=== PATIENT | male | born 1945 | race Caucasian/White ===

== ENCOUNTER 2024-04-23 02:12 | Observation (INO) | payer MEDICARE, OTHER, SELFPAY ==
[2024-04-22 23:00] VITALS: BP 150/68
[2024-04-23] VITALS: BP 146/68
[2024-04-23 00:01] LABS: Urine Albumin Negative (Neg - Trace); Urine Bilirubin Negative (Negative); Urine Character Clear (Clear); Urine Color Yellow; Urine Glucose Negative (Negative); Urine Ketone Negative (Negative); Urine Leukocyte Negative (Negative); Urine Nitrite Negative (Negative); Urine Occult Blood Negative (Negative); Urine Specific Gravity 1.005 (<1.030); Urine Urobilinogen Negative (Neg - 1+)
[2024-04-23 00:05] LABS: % Basophils 0.2 % (0-2); % Immature Granulocytes 0.3 % (0-0.5); % Lymphocytes 8.7 % (20.5-51.1); % Monocytes 14.5 % (1.7-9.3); % Neutrophils 76.3 % (42.2-75.2); Absolute Lymphocytes 0.5 10^3/uL (1.2-3.4); Absolute Monocytes 0.9 10^3/uL (0.1-0.6); Absolute Neutrophils 4.5 10^3/uL (1.4-6.5); Hematocrit 33.6 % (39.0-52.0); Hemoglobin 12.1 g/dL (13.0-18.0); Mean Corpuscular Hgb 32.6 pg (27.0-31.0); Mean Corpuscular Volume 90.6 fL (80.0-94.0); Mean Platelet Volume 10.1 fL (7.4-10.4); Nucleated Red Blood Cells % 0 % (-); Platelet Count 135 10^3/uL (130-400); Red Blood Cell Count 3.71 10^6/uL (4.70-6.10); Red Cell Dist. Width 14.1 % (11.5-14.5); White Blood Cell Count 5.9 10^3/uL (4.8-10.8)
[2024-04-23 00:15] LABS: ALT (SGPT) < 10 U/L (0-50); AST (SGOT) 31 U/L (17-59); Albumin 4.4 g/dl (3.5-5.0); Alkaline Phosphatase 103 U/L (38-126); Blood Urea Nitrogen 19 mg/dl (9-20); Calcium 8.8 mg/dl (8.4-10.2); Carbon Dioxide 24 mmol/L (22-30); Chloride 99 mmol/L (98-107); Glucose 113 mg/dl (70-99); Sodium 137 mmol/L (135-145); Total Bilirubin 0.5 mg/dl (0.2-1.3); Total Protein 6.7 g/dl (6.3-8.2); eGFR > 60.00
--- NOTE | 2024-04-23 00:48 | ED.GENMED ---
History of Present Illness
General
Chief Complaint: Fall
Source: patient and spouse
Exam Limitations: none
Time Seen by Provider: 04/23/24 00:11
History of Present Illness
History of Present Illness:
This is a 78 year old male that comes in with c/o fall. states that he was diagnosed with COVID on Friday. States that he has been sitting in his chair most of the day. States that he went to get up and he fell backward into his chair. States
that he couldn't get up and could hardly walk. States that he has a headache. Denies any fever, chills, chest pain, SOB, abd pain, nausea, vomiting, diarrhea, dizziness, urinary burning.
Past History
Past History
ED Past Medical History: Hypercholesterolemia and Other (Parkinson's)
ED Past Surgical History: Orthopedic (Back surgery)
Social History
Tobacco: Non-smoker
Alcohol: None
Personal:
Living: with family
Review of Systems
Review of Systems
Other source history: family
All Other Systems: ROS reviewed and negative except as documented in HPI and ROS
Constitutional: Denies fever or chills
EENT: Reports no symptoms
Respiratory: Reports no symptoms; Denies cough or trouble breathing
Cardiac: Reports no symptoms; Denies chest pain
ABD/GI: Reports no symptoms; Denies abdominal pain, nausea, vomiting or diarrhea
: Reports no symptoms and dysuria; Denies urgency
Musculoskeletal: Reports no symptoms
Skin: Reports no symptoms
Neurological: Reports headache and weakness
Psychiatric: Reports no symptoms
Phy Exam
General Physical Exam
General Presentation: no apparent distress
General age: appears stated age
General Skin: warm and dry
General Habitus: elderly
General Mental: alert
General Hydration: dry mucous membranes
ENT Exam
ENT Exam: pharynx normal and neck supple
Eye Exam
Eye Exam: EOMI
Cardiovascular Exam
Cardiovascular Exam: regular rate/rhythm, normal peripheral pulses and other (Murmur)
Pulmonary Exam
Pulmonary Exam: lungs clear, no respiratory distress, no rales, chest non tender, no crackles, no rhonchi, no wheezing and no cough
Gastrointestinal Exam
Gastrointestinal Exam: normal bowel sounds, non tender, soft, no organomegaly, no pulsatile mass and non distended
Musculoskeletal Exam
Musculoskeletal Exam: full ROM and edema (Slight lower leg edema L>R)
Skin Exam
Skin Exam: normal color, warm/dry and no petechia
Psychiatric Exam
Psychiatric Exam: normal mood/affect
Course
Orders/Labs/Results
Orders:
Orders
04/22/24 23:48
Complete Blood Count/With Diff Urgent
Comprehensive Metabolic Panel Urgent
Urinalysis Reflex To Culture Urgent
Date Specimen was Collected: 04/22/24
Time Specimen was Collected: 23:44
04/23/24 00:48
Acetaminophen [Tylenol] 1,000 mg PO NOW STA
04/23/24 00:52
0.9% Sodium Chloride 1000 ml [Nss] 1,000 ml IV BOLUS
04/23/24 00:57
Electrocardiogram (*1) Urgent
Reason for Study: Fatigue / Weakness
EKG- Treatment ONCE
Abnormal Lab Results
04/22/24
23:48
RBC 3.71 L 10^6/uL
(4.70-6.10)
Hgb 12.1 L g/dL
(13.0-18.0)
Hct 33.6 L %
(39.0-52.0)
MCH 32.6 H pg
(27.0-31.0)
Absolute Lymphs (auto) 0.5 L 10^3/uL
(1.2-3.4)
Absolute Monos (auto) 0.9 H 10^3/uL
(0.1-0.6)
Neutrophils % 76.3 H %
(42.2-75.2)
Lymphocytes % 8.7 L %
(20.5-51.1)
Monocytes % 14.5 H %
(1.7-9.3)
Glucose 113 H mg/dl
(70-99)
04/22/24 23:48
04/22/24 23:48
H/H slightly low, Glucose nonfasting. Urine negative for infection.
Vital Signs
Initial and Last Documented VS:
Initial Vital Signs
Pulse Resp Pulse Ox
97 26 96
04/22/24 22:53 04/22/24 22:53 04/22/24 22:53
Last Documented Vital Signs
Temp Pulse Resp BP Pulse Ox
100.6 F H 94 17 146/68 96
04/23/24 00:10 04/23/24 01:00 04/23/24 01:00 04/23/24 00:00 04/23/24 01:00
MDM/Problems Addressed
Differential Diagnosis Includes:
COVID, Weakness
MDM/Problems Addressed:
This is a 78 year old male that comes in with c/o fall. states that he was diagnosed with COVID on Friday. States that today he could hardly get out of his chair and then when he went to stand up he fell back into the chair. States that he did
not hit his head. Patient is very weak and could hardly walk.
Will get labs and admit. Explained that he may need a little PT to help with strengthening. Hospitalist notified.
Chronic conditions affecting care:
Parkinson's
Acute Exacerbation and/or Progression of Chronic Illness:
Parkinson's, COVID
*Pulse Oximetry
Patient hypoxic: no
*EKG
Interpreted by ED Provider?: Yes
Heart Rate: 90
Rate: normal
Rhythm: sinus and PVC's
[place]: left axis deviation
Interval: normal interval
QRS Pattern: right bundle branch block
Ischemia: no ischemia
*Financial Sales Manager Interpretation
Rate: normal
Heart Rate: 95
Rhythm: sinus
*Critical Care Note
Total Time (30-74mins, 75-104mins- exclusive of procedures): Not Applicable
ED Attending Note
-
Portions of this chart may have been created with voice recognition software.� Occasional wrong word or��sound alike� substitutions may have occurred due to the inherent limitations of voice recognition software.
Discharge Plan
Departure
Patient Disposition: Admit
Date of Disposition: 04/23/24
Time of Disposition: 01:11
Admit to: Med/Surg
Presentation/result/management discussed w/ accepting MD/DO: Hospitalist
Patient with high blood pressure during this ER visit?: Yes
Condition: Good
Discharge Problem:
Weakness, COVID
Referrals:
Miguel Aguilar MD [Family Provider] -
Interventions
Interventions:
*Risk Screen - Suicide Last Done: 04/22/24 21:47
*General Assessment Last Done: 04/22/24 21:47
*Neglect/Abuse Screening Last Done: 04/22/24 21:47
*ED COVID-19 Vaccine History Last Done: 04/22/24 21:47
ED-Musculoskeletal Assessment Last Done: 04/22/24 23:50
ED- Neurological Assessment Last Done: 04/22/24 23:50
ED-Skin Assessment Last Done: 04/22/24 23:50
Discharge Date and Time
Print Language: SINHALA
[2024-04-23] MEDS: TYLENOL 1000 MG PO (00:56)
[2024-04-23] MEDS: NSS 1000 IV ×2 (00:57→03:14)
--- NOTE | 2024-04-23 01:19 | HPS.HSE ---
Family Physician
-
Family Physician: Miguel Aguilar
Chief Complaint
-
Weakness and fall
History of Present Illness
This is a 6p-year-old male with past medical history significant for Parkinson's, hypertension, hyperlipidemia, and BPH coming into the emergency department following a fall with weakness.
Patient reported that he started having sore throat about 4 days ago. He reports a very mild cough but no shortness of breath. Denies any fevers at home. No chills. Patient reported that he was diagnosed with COVID-19 about 2 days ago. Since
then today appears to be his was symptomatic today. Apparently was trying to get up from a seated position when he lost strength in his arms and legs and could not pull himself up so he fell back into the chair. Later on was helped to a standing
position by spouse but unfortunately had a fall from that position to the floor hitting the bottom of his back. He denied hitting his head. He denies any lightheadedness or dizziness or palpitations. He has not had any diarrhea. He denies taking
any specific medications for the COVID-19. He reports that his vaccination is up-to-date.
Limited department the patient was febrile to 100.6. Blood pressure was stable at 146/68 with a pulse of 96 and oxygen sat of 96 %. ECG shows a sinus rhythm at 90 with a right bundle. No prior ECGs for comparison. His CBC was within normal
limits. Chemistries were also within normal limits. UA was unremarkable.
Medical History
Past Medical History
Past Medical History: Reports HTN
Additional Past Medical History:
Parkinson disease
BPH
Past Surgical History: Reports None
Social History
Tobacco: Non-smoker
Alcohol: None
Drug: None
Personal:
Living: With Family
Employment: Retired
Family History
Family History: Not pertinent
Allergies / Home Medications
Allergies reflects when Allergies were last updated in [employer].
Home Medications with original date entered in [employer]
Allergy/Medication List:
Allergies
Allergy/AdvReac Type Severity Reaction Status Date / Time
No Known Allergies Allergy Unverified 04/22/24 21:51
Losartan 25mg po daily
Tegretol 400mg po am, 600mg po hs
carbidopa-levidopa 25-100 2 Tabs po tid
carbidopa 25mg 1 Tab po tid
Gabapentin 300mg po BID
Simvastatin 20mg po daily
Venlafaxine ER 37.5 mg po daily
Finasteride 5mg po daily
Travoprost olphthalmic, 1 drop each eye daily
Brimonidine Tartrate 0.15%, 1 drop each eye bid
Review of Systems
-
History Source: Patient
Constitutional: Reports Fever
EENT: Reports Sore Throat
Respiratory: Reports No Symptoms
Cardiac: Reports No Symptoms
Abdomen/GI: Reports No Symptoms
: Reports No Symptoms
Musculoskeletal: Reports No Symptoms
Skin: Reports No Symptoms
Neurological: Reports Weakness
Endocrine: Reports No Symptoms
Hematologic/Lymphatic: Reports No Symptoms
Psych: Reports No Symptoms
Physical Exam
Vital Signs
Vital Signs
Temp Pulse Resp BP Pulse Ox
100.6 F H 92 29 146/68 97
04/23/24 00:10 04/23/24 01:15 04/23/24 01:15 04/23/24 00:00 04/23/24 01:15
Physical Exam
General: Well Developed, Well Nourished, No Apparent Distress and Conversant
HEENT: NormoCephalic, Anicteric, Moist mucous membranes and Atraumatic
Respiratory: Clear
Cardiac: S1/S2 and Regular Rhythm
Breast: Deferred by me
GI: Soft, Non Tender, Non Distended and Normal Bowel Sounds
Rectal: Deferred by Provider
Genito-urinary: Deferred by me
Musculoskeletal: No Clubbing, No Cyanosis and No Edema
Skin: Warm
Neuro: AO x 3 and Nonfocal/grossly intact
Hematologic/Lymphatic: No Lymphadenopathy
Psych: Calm
Laboratory Results
-
04/22/24 23:48
04/22/24 23:48
Laboratory Results
Total Bilirubin 0.5 mg/dl (0.2-1.3) 04/22/24 23:48
AST 31 U/L (17-59) 04/22/24 23:48
ALT < 10 U/L (0-50) 04/22/24 23:48
Alkaline Phosphatase 103 U/L (38-126) 04/22/24 23:48
Data Reviewed
-
Medical Tests (Nuc Med, Echo, EKG etc): Image Personally Visualized and interpreted
Lab Data: Labs Reviewed by me
Old Records: Reviewed
Impression/Plan
-
IMPRESSION:
Patient with diagnosis of COVID 19, 2 days ago, symptomatic with fevers, weakness, poor oral intake and suffered a fall secondary to the weakness while trying to get up. No trauma as he landed softly on a chair and then on a floor. No focal
neurological deficits. No encephalopathy. Labs unremarkable. U/A is negative.
PLAN:
Weakness - 2/2 covid 19 and possibly mild dehydration. High fall risk at home due to parkinsons and ongoing weakness.
- admit to medsurg
- symptomatic treatment for covid
- check cpk
- gentle hydration overnight
- pt evaluation and care management for placement.
COVID 19 - mild disease without respiratory symptoms, no gi symptoms (only sore throat, lower extremity athralgias, myalgias and malaise).
- patient refused paxlovid
- does not meet criteria for Remdesivir due to low severity and low risk factors
- supportive care for now
Parkinson
- continue CURRENT MEDS
dvt ppx - enoxaparin
Code Status - Full Code
[2024-04-23 02:00] VITALS: BP 132/59
[2024-04-23 02:16] LABS: Creatine Phosphokinase 165 U/L (55-170)
[2024-04-23 02:50] VITALS: BP 153/82; BMI 24.7
--- NOTE | 2024-04-23 04:46 | PTCARENOTE ---
Received pt from ED into room 2121. Assist x3 to pull up hand to bed. AAOx3. VSS. at bedside. Pt denies pain. See Assessment. Oriented to room, pt with no complaints at this time.
[2024-04-23 07:05] VITALS: BP 127/63
[2024-04-23 08:12] LABS: Vitamin B12 753 pg/ml (239-931)
[2024-04-23 09:19] VITALS: BP 128/64
--- NOTE | 2024-04-23 09:31 | W.PN.UPDATE ---
Update Note
Progress Note Update
Non-billable addendum. Admitted 130 AM
Patient with COVID and weakness. No acute cardiopulmonary or GI symptoms.
Has PD and is on Sinemet, reports weakness since COVID diagnosis
Worked with therapy today; recommended HH with walker
Assessment:
Generalized weakness in setting of COVID and underlying PD
- COVID-19 with only sore throat, no other significant symptoms. Patient declines Paxlovid and no indication for steroids/RemDesivir. Continue isolation protocol
- PT/OT - recommended for home/VN + RW script
Hx of Parkinsons
- resume home meds when list verified
DVT ppx: Lovenox
Code: Full
[2024-04-23] MEDS: COZAAR 25 MG PO (09:40)
[2024-04-23] MEDS: PROSCAR 5 MG PO (09:40)
[2024-04-23] MEDS: NEURONTIN 300 MG PO (09:41)
[2024-04-23] MEDS: SINEMET 25-100 2 TABLET PO (09:41)
[2024-04-23] MEDS: EFFEXOR XR 37.5 MG PO (09:41)
[2024-04-23] MEDS: ALPHAGAN P 0.15% EYE DROPS 1 DROP BOTH EYES (09:42)
[2024-04-23] MEDS: TEGRETOL 400 MG PO (09:43)
--- NOTE | 2024-04-23 10:58 | CM ---
Addendum entered by Mercy Olivares 04/23/24 11:05:
Observation form explained & signed. In chart.
PCP: Miguel Aguilar
Pharmacy: [facility]
Original Note:
CM met with patient, daughter & .
DX: covid, ambulatory dysfunction
PMH: Parkinson's HTN, HDL, BPH
Patient lives at home with in a 3 story home, 3 steps to enter & bedroom and bath on 1st floor.
PLOF: Independent no device, driving.
Patient states he was going to outpatient PT prior to hospitalization & would like to return.
PT had recommended home health, but he declines.
tt Dr. Rao - will need a script to resume outpatient PT.
PLAN: Discharge to home, declines home health, would like to return to outpatient therapy.
to transport home. Will call outpatient to discuss any protocols regarding covid.
[2024-04-23 11:46] VITALS: BP 139/75
--- NOTE | 2024-04-23 11:59 | W.DS.TRANS ---
DC Summary - Undertaker Assistant
-
Discharge Instructions:
Discharge Diagnosis/Procedures COVID-19, generalized weakness in setting of
infection + Parkinsons
Diet Regular
Activity As tolerated
Bathing Restrictions None
Other Services VN
Instructions:
Stand-Alone Forms:
Changes to Home Medications: No
Discharge Medications:
DC Medications w/original date entered in [employer]
Centrum 0 mg PO DAILY 04/23/24
CoQ-10 200 mg PO DAILY 04/23/24
Cozaar 25 mg PO DAILY 04/23/24
Effexor XR 37.5 mg PO DAILY 04/23/24
Fish Oil 2,400 mg PO DAILY 04/23/24
Miralax 2 tbsp PO BID 04/23/24
Proscar 5 mg PO DAILY 04/23/24
Sinemet 25 - 100 mg PO TID 04/23/24
Tegretol 1,000 mg PO DAILY 04/23/24
Tylenol 500 mg PO PRN PRN TARIQ/mild pain 04/23/24
Vitamin C 600 mg PO DAILY 04/23/24
Vitamin D3 1,000 % PO DAILY 04/23/24
Zocor 20 mg PO DAILY 04/23/24
alendronate 35 mg PO WEEKLY 04/23/24
brimonidine 0.15 % BOTH EYES BID 04/23/24
calcium 600 mg PO DAILY 04/23/24
carbidopa 25 mg PO TID 04/23/24
gabapentin 300 mg PO BID 04/23/24
travoprost 1 drp BOTH EYES DAILY 04/23/24
Home Medication Changes
Pending Results: No
Total time spent discharging patient (in min): 41
== END 2024-04-23 12:23 | disposition home or self-care (01) ==
LOC: 2 NORTH 02:12
PROVIDERS: ADMITTING PHYSICIAN Internal Medicine; ATTENDING PHYSICIAN Internal Medicine; EMERGENCY PHYSICIAN Student in an Organized Health Care Education/Training Program; FAMILY PHYSICIAN Internal Medicine
DX: U07.1 COVID-19 (principal); R51.9 Headache, unspecified; W18.39XA Other fall on same level, initial encounter; Y93.89 Activity, other specified; Y92.008 Other place in unspecified non-institutional (private) residence as the place of occurrence of the external cause; G20.A1 Parkinson's disease without dyskinesia, without mention of fluctuations; E78.00 Pure hypercholesterolemia, unspecified; R53.1 Weakness; R53.83 Other fatigue; N40.0 Benign prostatic hyperplasia without lower urinary tract symptoms; I10 Essential (primary) hypertension; R05.9 Cough, unspecified; R50.9 Fever, unspecified; I45.2 Bifascicular block
CPT/HCPCS: 80053; 81003; 82550; 82607; 85025; 93005; 96360; 97162; 99285; G0378

== ENCOUNTER 2025-01-09 17:22 | Emergency (ER) | payer MEDICARE, OTHER, SELFPAY ==
[2025-01-09 17:27] VITALS: BP 149/79
[2025-01-09 18:39] VITALS: BMI 23.4
[2025-01-09 18:55] VITALS: BP 148/69
--- NOTE | 2025-01-09 19:26 | ED.GENMED ---
History of Present Illness
General
Chief Complaint: Fall
Source: patient and spouse
Exam Limitations: none
Time Seen by Provider: 01/09/25 19:05
History of Present Illness
History of Present Illness:
See MDM
Past History
Past History
ED Past Medical History: Hypercholesterolemia and Other (Parkinson's)
ED Past Surgical History: Orthopedic (Back surgery)
Social History
Tobacco: Non-smoker
Alcohol: None
Personal:
Living: with family
Phy Exam
Physical Exam
Physical Exam:
See MDM
Course
Orders/Labs/Results
Orders:
Orders
01/09/25 17:[address] [CT Head W/o Iv Contrast] Urgent
Comment:
Reason For Exam: fall with head strike.
01/09/25 19:25
Ondansetron Orally Disint [Zofran Odt (Orally Disintegrating)] 4 mg PO NOW STA
Vital Signs
Initial and Last Documented VS:
Initial Vital Signs
Temp Pulse Resp BP Pulse Ox
98.9 F 78 18 149/79 97
01/09/25 17:27 01/09/25 17:27 01/09/25 17:27 01/09/25 17:27 01/09/25 17:27
Last Documented Vital Signs
Temp Pulse Resp BP Pulse Ox
98.9 F 71 18 148/69 98
01/09/25 17:27 01/09/25 18:55 01/09/25 18:55 01/09/25 18:55 01/09/25 18:55
MDM/Problems Addressed
Differential Diagnosis Includes:
HPI and MDM Narrative:
79-year-old male presenting with headache and dizziness after trip and fall few days ago. Patient is not on blood thinners. He did hit the back of his head. Patient blames this on his Parkinson's disease. at bedside acknowledges that he is
otherwise pretty good at home. She got worried today because patient had a sudden onset earlier in the day where he developed muffled hearing in his left ear. She started to get worried so she came in for scan. CT was done prior to my evaluation.
CT head negative. On my exam, he is extremely well-appearing nontoxic. No hematoma noted to his posterior scalp. No bony tenderness noted to upper or lower extremities. Range of motion intact in all 4 extremities. In regards to his muffled
hearing patient had a very mild cerumen impaction in his left ear. This was easily removed with a Q-tip. Afterwards, patient states his hearing resolved. In regards to his dizziness and headache, we discussed likely mild concussion. Will
prescribe Zofran as needed. Both patient and feel comfortable going home and feel like they have enough resources at home
Physical exam
General: Well appearing and non-toxic
HEENT: protecting airway. Mild cerumen impaction to left ear. EOMI. Pupils
Neck: supple
CV: No evidence of cyanosis
Resp: No accessory muscle use
Abd: Non-distended
Extremities: No deformities. Range of motion intact in all 4 extremities. No bony tenderness
Neuro: alert
Psych: Normal affect
Skin: Intact
Problems Addressed including Acute and Chronic Conditions affecting care:
1. Head injury
Acuity: acute
Prognosis: stable
Details: CT head negative. Discussed likely concussion
2. Left cerumen impaction
Acuity: acute
Prognosis: stable
Details: Q-tip easily removed the cerumen without difficulty. Repeat exam shows no TM or canal injury
Differential Diagnosis (but not limited to): Concussion, intracranial hemorrhage hip fracture
Testing considered: Hip x-ray but there is no bony tenderness at the moment
Drug therapy (if applicable): OTC meds, please see d/c instruction regarding Rx drugs
Amount and/or Complexity of Data Reviewed
Clinical info obtained from: Patient and spouse
External data reviewed: N/A
Labs I independently reviewed (but not limited to): N/A
Radiology: The CT scan was personally and independently reviewed. In addition, official CT report reviewed.
Pulse Ox: not hypoxic
EKG independently reviewed: N/A
Baby Registry Sales Consultant: N/A
Critical Care: N/A
Risk of Complication:
Social Determinants of health: Good social support
Discussed with other providers: N/A
Escalation of Care includes Admit/Obs: After being observed in the Emergency Department, pt stable for discharge.
Occasional wrong word or 'sound a like' substitutions may have occurred due to the inherent limitations of voice recognition software. Read the chart carefully and recognize, using context, where substitutions have occurred.
*Critical Care Note
Total Time (30-74mins, 75-104mins- exclusive of procedures): Not Applicable
ED Attending Note
-
Portions of this chart may have been created with voice recognition software.� Occasional wrong word or��sound alike� substitutions may have occurred due to the inherent limitations of voice recognition software.
Discharge Plan
Departure
Patient Disposition: Home (Routine Discharge)
Date of Disposition: 01/09/25
Time of Disposition: 19:26
Patient with high blood pressure during this ER visit?: Yes
Discharge Problem:
Head injury, Concussion
Instructions: Concussion, Adult (DC)
Prescriptions:
New
ondansetron 4 mg Tablet,Disintegrating
4 mg PO BIDPRN PRN (Reason: nausea/vomiting) Qty: 10 0RF
No Action
Zocor
20 mg PO DAILY
Cozaar
25 mg PO DAILY
Sinemet
25 - 100 mg PO TID
Tegretol
1,000 mg PO DAILY
Centrum
0 mg PO DAILY
Rx Instructions:
no dosage available
CoQ-10
200 mg PO DAILY
Effexor XR
37.5 mg PO DAILY
Fish Oil
2,400 mg PO DAILY
Miralax
2 tbsp PO BID
Proscar
5 mg PO DAILY
Tylenol
500 mg PO PRN PRN (Reason: TARIQ/mild pain)
Vitamin C
600 mg PO DAILY
Vitamin D3
1,000 % PO DAILY
Rx Instructions:
1000IU daily
alendronate
35 mg PO WEEKLY
brimonidine
0.15 % BOTH EYES BID
Rx Instructions:
1 drop each eye
calcium
600 mg PO DAILY
carbidopa
25 mg PO TID
gabapentin
300 mg PO BID
travoprost
1 drp BOTH EYES DAILY
Referrals:
Miguel Aguilar MD [Family Provider, Internal Medicine]
Activity Restrictions/Additional Instructions:
Please return for any worsening symptoms.
You may return at any time if you have further concerns.
Please follow up with your doctor at the first available appointment, preferably this week.
Thank you for choosing [facility].
Interventions
Interventions:
*Risk Screen - Suicide Last Done: 01/09/25 17:25
*General Assessment Last Done: 01/09/25 17:25
*Neglect/Abuse Screening Last Done: 01/09/25 17:25
ED-Musculoskeletal Assessment Last Done: 01/09/25 18:39
ED- Neurological Assessment Last Done: 01/09/25 18:39
ED-Skin Assessment Last Done: 01/09/25 18:39
Discharge Date and Time
Print Language: GREEK
[2025-01-09] MEDS: ZOFRAN ODT (ORALLY DISINTEGRATING) 4 MG PO (19:37)
== END 2025-01-09 19:51 | disposition home or self-care (01) ==
LOC: EMR 17:22
PROVIDERS: EMERGENCY PHYSICIAN Student in an Organized Health Care Education/Training Program; FAMILY PHYSICIAN Internal Medicine
DX: S06.0X0A Concussion without loss of consciousness, initial encounter (principal); W19.XXXA Unspecified fall, initial encounter; H61.22 Impacted cerumen, left ear; G20.A1 Parkinson's disease without dyskinesia, without mention of fluctuations; E78.00 Pure hypercholesterolemia, unspecified
CPT/HCPCS: 99284; 70450

== ENCOUNTER 2025-01-14 15:31 | Emergency (ER) | payer MEDICARE, OTHER, SELFPAY ==
[2025-01-14 15:41] VITALS: BP 122/63
[2025-01-14 16:03] VITALS: BP 124/65
[2025-01-14 16:10] LABS: % Basophils 0.2 % (0-2); % Eosinophils 0.5 % (0-6); % Immature Granulocytes 0.3 % (0-0.5); % Lymphocytes 7.8 % (20.5-51.1); % Monocytes 11.3 % (1.7-9.3); % Neutrophils 79.9 % (42.2-75.2); Absolute Lymphocytes 0.7 10^3/uL (1.2-3.4); Absolute Neutrophils 7.1 10^3/uL (1.4-6.5); Hematocrit 36.3 % (39.0-52.0); Hemoglobin 12.9 g/dL (13.0-18.0); Mean Corp Hgb Conc. 35.5 g/dL (33.0-37.0); Mean Corpuscular Hgb 33.2 pg (27.0-31.0); Mean Corpuscular Volume 93.6 fL (80.0-94.0); Mean Platelet Volume 9.4 fL (7.4-10.4); Nucleated Red Blood Cells % 0 % (-); Platelet Count 197 10^3/uL (130-400); Red Blood Cell Count 3.88 10^6/uL (4.70-6.10); Red Cell Dist. Width 13.6 % (11.5-14.5); White Blood Cell Count 8.8 10^3/uL (4.8-10.8)
[2025-01-14 16:29] LABS: NT-proBNP 1510 pg/ml
[2025-01-14 16:42] LABS: ALT (SGPT) < 10 U/L (0-50); AST (SGOT) 24 U/L (17-59); Albumin 4.3 g/dl (3.5-5.0); Alkaline Phosphatase 81 U/L (38-126); Blood Urea Nitrogen 14 mg/dl (9-20); Calcium 8.9 mg/dl (8.4-10.2); Carbon Dioxide 24 mmol/L (22-30); Chloride 99 mmol/L (98-107); Glucose 136 mg/dl (70-99); Potassium 4.1 mmol/L (3.5-5.1); Sodium 129 mmol/L (135-145); Total Bilirubin 0.7 mg/dl (0.2-1.3); Total Protein 6.6 g/dl (6.3-8.2); eGFR > 60.00
[2025-01-14 17:00] VITALS: BP 129/65
--- NOTE | 2025-01-14 17:05 | ED.GENMED ---
History of Present Illness
General
Chief Complaint: Fall
Time Seen by Provider: 01/14/25 16:33
History of Present Illness
History of Present Illness:
79-year-old male history of Parkinson's, hyperlipidemia, sleep apnea on CPAP presenting with fall. Patient states that yesterday he was walking to his doctor's office when he started feeling dizzy and fell striking his head. Patient reports loss
of consciousness. Patient reports left-sided rib pain. Patient states that he was seen by his PCP who started patient on Midodrine for presumed orthostatic hypotension, and gave patient outpatient rib x-ray. Patient states that rib x-ray showed
left-sided rib fractures 5 through 8. Patient denies chest pain or shortness of breath. Patient states that he has been coughing at night productive of yellow sputum this morning. Patient reports left leg swelling worsening for the past few
weeks. Patient is not on blood thinners.
Past History
Past History
ED Past Medical History: Hypercholesterolemia and Other (Parkinson's)
ED Past Surgical History: Orthopedic (Back surgery)
Social History
Tobacco: Non-smoker
Alcohol: None
Personal:
Living: with family
Phy Exam
Physical Exam
Physical Exam:
General: Alert, no acute distress
Head: Ecchymosis right chin region and inferior to left eye. No lacerations
Eyes: clear conjunctiva
Neck: supple. No cervical tenderness to palpation
Cardiac: regular rate and rhythm, no murmur
Lungs: clear to auscultation bilaterally. No wheezes, rales, or rhonchi. Speaking full unlabored sentences. No respiratory distress.
Chest: left sided mid to lower rib tenderness to palpation
Abdomen: soft, nondistended nontender. No rebound or guarding.
MSK: Left leg edematous compared to right. No deformity
Skin: warm, dry
Neuro: Alert and oriented x3. no focal deficits
Course
Orders/Labs/Results
Orders:
Orders
01/14/25 15:46
EKG [Electrocardiogram (*1)] Urgent
Reason for Study: Shortness of Breath
01/14/25 15:47
EKG- Treatment ONCE
01/14/25 15:51
CBC/With Diff [Complete Blood Count/With Diff] Urgent
Comprehensive Metabolic Panel Urgent
Pro-BNP [NT-proBNP] Urgent
01/14/25 17:04
CT Cervical Spine W/o Iv Contr Urgent
Comment:
Reason For Exam: fall
CT Chest W/o Iv Contrast Urgent
Comment:
Reason For Exam: fall, left sided rib tenderness
CT Head W/o Iv Contrast Urgent
Comment:
Reason For Exam: fall head trauma
01/14/25 17:05
Venous Doppler Lwr Ext Left [US Periph Venous LOWER Ext LT] Urgent
Comment:
Reason For Exam: left leg swelling
Abnormal Lab Results
01/14/25
15:51
RBC 3.88 L 10^6/uL
(4.70-6.10)
Hgb 12.9 L g/dL
(13.0-18.0)
Hct 36.3 L %
(39.0-52.0)
MCH 33.2 H pg
(27.0-31.0)
Absolute Neuts (auto) 7.1 H 10^3/uL
(1.4-6.5)
Absolute Lymphs (auto) 0.7 L 10^3/uL
(1.2-3.4)
Absolute Monos (auto) 1.0 H 10^3/uL
(0.1-0.6)
Neutrophils % 79.9 H %
(42.2-75.2)
Lymphocytes % 7.8 L %
(20.5-51.1)
Monocytes % 11.3 H %
(1.7-9.3)
Sodium 129 L mmol/L
(135-145)
Creatinine 0.5 L mg/dL
(0.7-1.3)
Glucose 136 H mg/dl
(70-99)
01/14/25 15:51
01/14/25 15:51
Vital Signs
Initial and Last Documented VS:
Initial Vital Signs
Temp Pulse Resp BP Pulse Ox
97.9 F 80 16 122/63 96
01/14/25 15:41 01/14/25 15:41 01/14/25 15:41 01/14/25 15:41 01/14/25 15:41
Last Documented Vital Signs
Temp Pulse Resp BP Pulse Ox
97.9 F 79 16 130/65 95
01/14/25 15:41 01/14/25 21:00 01/14/25 21:00 01/14/25 21:00 01/14/25 21:00
MDM/Problems Addressed
Differential Diagnosis Includes:
Intracranial hemorrhage, rib fractures, orthostatic hypotension, anemia, electrolyte abnormality, arrhythmia, DVT
MDM/Problems Addressed:
Results reviewed. CT chest significant for rib fractures left 5 through 9, no pneumothorax, trace pleural fluid. CT cervical spine shows No CT evidence for an acute posttraumatic abnormality of the cervical spine. CT head shows No acute
intracranial abnormality. LLE duplex shows No sonographic evidence for left lower extremity deep venous thrombosis. Labs significant for mild hyponatremia at 129, baseline anemia at 12.9.
Discussed results with patient at bedside. Recommended transfer to a trauma center for 5 rib fractures. Patient agreeable, requests to go to [facility] where patient's doctors are. Discussed with Dr. Berg, trauma at [facility], who accepts pt for
transfer.
*EKG
Interpreted by ED Provider?: Yes (EKG shows NSR at 81bpm with FL 166 QTc 522 RBBB)
*Critical Care Note
Total Time (30-74mins, 75-104mins- exclusive of procedures): Not Applicable
ED Attending Note
-
Portions of this chart may have been created with voice recognition software.� Occasional wrong word or��sound alike� substitutions may have occurred due to the inherent limitations of voice recognition software.
Discharge Plan
Departure
Patient Disposition: [facility]
Date of Disposition: 01/14/25
Time of Disposition: 20:38
Discharge Problem:
Multiple fractures of rib involving four or more ribs
Prescriptions:
No Action
Zocor
20 mg PO DAILY
Cozaar
25 mg PO DAILY
Sinemet 25 mg
2 tab PO TID
Rx Instructions:
25/100 2 tablets tid
Tegretol
1,000 mg PO DAILY
Rx Instructions:
200mg, 2 in the morning, 3 in the evening
Centrum
0 mg PO DAILY
Rx Instructions:
no dosage available
CoQ-10
200 mg PO DAILY
Fish Oil
2,400 mg PO DAILY
Miralax
2 tbsp PO BID
Proscar
5 mg PO DAILY
Tylenol
500 mg PO PRN PRN (Reason: TARIQ/mild pain)
Vitamin C
600 mg PO DAILY
Vitamin D3
1,000 % PO DAILY
Rx Instructions:
1000IU daily
alendronate
35 mg PO WEEKLY
brimonidine
0.15 % BOTH EYES BID
Rx Instructions:
1 drop each eye
calcium
600 mg PO DAILY
carbidopa
25 mg PO TID
travoprost
1 drp BOTH EYES DAILY
meloxicam 15 mg Tablet
15 mg PO DAILY
midodrine 5 mg Tablet
5 mg PO DAILY AT 0700
fluoxetine 60 mg Tablet
60 mg PO DAILY
Contulose 10 g/15 ml
15 ml PO TID
Referrals:
UNKNOWN - PT DOES,NOT KNOW [Unknown Provider]
Hospital Transfer
Other hospital: [facility]
I certify that the patient requires transfer: Yes
Discussed case with accepting physician: Otis
Reason for transfer: specialties available
Interventions
Interventions:
*Risk Screen - Suicide Last Done: 01/14/25 15:41
*General Assessment Last Done: 01/14/25 21:23
*Neglect/Abuse Screening Last Done: 01/14/25 15:41
*ED- Fall Risk Assessment Last Done: 01/14/25 17:10
*ED COVID-19 Vaccine History Last Done: 01/14/25 17:10
*Nursing Disposition Last Done: 01/14/25 21:23
ED-Musculoskeletal Assessment Last Done: 01/14/25 20:27
ED- Neurological Assessment Last Done: 01/14/25 20:27
ED-Skin Assessment Last Done: 01/14/25 20:27
Discharge Date and Time
Discharge Date/Time: 01/14/25 21:23
Print Language: YI
[2025-01-14 17:10] VITALS: BMI 23.5
[2025-01-14 20:14] VITALS: BP 133/63
--- NOTE | 2025-01-14 20:29 | EDRN ---
Pt says he has Parkinson's and has had 3 recent falls. Pt went to his doctor's office yesterday, felt dizzy and fell striking his head on the ground. Pt was seen by his doctor after the fall. Pt had xray done today that showed multiple L side rib
fractures so he was sent to the ED for evaluation. Pt denies headache, dizziness, cp, sob, abd pain, n/v, neck/back pain. Pt notes pain L ribs when he takes a deep breath. Pt notes increased swelling in LLE, no pain. Pt sitting on side of
stretcher when this RN entered room. at bedside encouraging pt to get back into bed. Pt reluctant to do so as he is more comfortable sitting and said he was going to sit in one of the chairs in the room. Pt given a recliner to sit in for
comfort. Pt able to stand and sit on his own. Legs raised and warm blanket provided. Pt said he was more comfortable sitting in the recliner. Dr Saucedo obtained signed consent for transfer.
[2025-01-14 21:00] VITALS: BP 130/65
--- NOTE | 2025-01-14 21:24 | EDRN ---
Report called to Anitha in [facility] ED
== END 2025-01-14 21:23 | disposition short-term general hospital (02) ==
LOC: EMR 15:31
PROVIDERS: Emergency Medicine; EMERGENCY PHYSICIAN Emergency Medicine; FAMILY PHYSICIAN Internal Medicine
DX: S22.42XA Multiple fractures of ribs, left side, initial encounter for closed fracture (principal); Y93.01 Activity, walking, marching and hiking; R22.42 Localized swelling, mass and lump, left lower limb; E78.00 Pure hypercholesterolemia, unspecified; G20.A1 Parkinson's disease without dyskinesia, without mention of fluctuations; E87.1 Hypo-osmolality and hyponatremia; G47.30 Sleep apnea, unspecified
CPT/HCPCS: 99284; 70450; 71250; 72125; 80053; 83880; 85025; 93005; 93971

== ENCOUNTER 2025-03-14 11:26 | Inpatient (IN) | payer MEDICARE, OTHER, SELFPAY ==
[2025-03-14] VITALS (10 sets, daily range): BP systolic 122–143; BP diastolic 54–74; PULSE 87–99; BMI 23.4; BMI 22.9
--- NOTE | 2025-03-14 06:29 | ED.GENMED ---
History of Present Illness
General
Chief Complaint: Fall
Time Seen by Provider: 03/14/25 06:22
History of Present Illness
History of Present Illness:
79-year-old male with history of Parkinson's presents to the emergency department for evaluation of general weakness. He states he was attempting to get out of bed this morning when he slid to the ground, denies any injuries or pain as a result of
this minor fall. States he was unable to get himself up. Badger well this weekend and denies any change to appetite or activity otherwise. Uses a walker for ambulation. Again currently denies any pain. Denies any recent fevers or illnesses. No
chest pain, shortness of breath, nausea, vomiting, or extremity paresthesias
On secondary assessment, spouse notes that pt fell yesterday as well, striking his back on the deck. He declined to inform me of this. She states that he cannot get himself out of bed or off the toilet once in the bathroom. She is concerned for his
frequent falls and lack of independent ambulation recently.
Past History
Past History
ED Past Medical History: Hypercholesterolemia and Other (Parkinson's)
ED Past Surgical History: Orthopedic (Back surgery)
Social History
Tobacco: Non-smoker
Alcohol: None
Personal:
Living: with family
Review of Systems
Review of Systems
Allergies reviewed?: Yes
All Other Systems: ROS reviewed and negative except as documented in HPI and ROS
Phy Exam
Physical Exam
Physical Exam:
GEN: Well appearing, NAD, WDWN
HEENT: NCAT, oral mucosa moist, no scleral icterus
Cardiac: Regular rate and rhythm, blowing holosystolic murmur
Lung: No respiratory distress, no tachypnea, lungs clear
MSK: No gross deformity or injuries. No midline C/T/L spine tenderness
Skin: Good color, no pallor or jaundice, no rashes. Abrasions to R scapular back and mid thoracic back
Neuro: AO x3, moves all extremities freely, no focal weakness, cranial nerves II through XII grossly intact
Psych: Calm, cooperative
Course
Orders/Labs/Results
Orders:
Orders
03/14/25 06:29
Electrocardiogram (*1) Urgent
Reason for Study: Fatigue / Weakness
EKG- Treatment ONCE
03/14/25 06:32
Basic Metabolic Panel Urgent
Complete Blood Count/No Diff Urgent
03/14/25 07:21
Cortisol, Random Urgent
Comment: ADD ON
Folate Urgent
Comment: ADD ON
Hep Liver [Zvruz-Rwro-Blbezzr] Urgent
Potassium Urgent
TSH Reflex To Free T4 Urgent
Comment: ADD ON
Urinalysis Reflex To Culture Urgent
Date Specimen was Collected: 03/14/25
Time Specimen was Collected: 07:19
Urine Microscopic Reflex Cult Urgent
Vitamin B12 Urgent
Comment: ADD ON
Urine Culture Urgent
JESSICA Source: U
Specimen Description:
Date Specimen was Collected: 03/14/25
Time Specimen was Collected: 07:19
03/14/25 08:41
CefTRIAXone [Rocephin] 1,000 mg IV NOW STA
03/14/25 10:21
Add On- LAB Routine
Tests Added?: Cortisol random, TSH with reflex FT4, folate, B12 serum
03/14/25 10:22
Orthostatic Vital Signs As Directed
Orthostatic VS Frequency: Now
03/14/25 10:48
US Renal With Bladder Routine
Comment:
Reason For Exam: UTI, recent Rios for urinary retention
Abnormal Lab Results
03/14/25 03/14/25
06:32 07:21
RBC 3.86 L 10^6/uL
(4.70-6.10)
Hgb 12.5 L g/dL
(13.0-18.0)
Hct 36.7 L %
(39.0-52.0)
MCV 95.1 H fL
(80.0-94.0)
MCH 32.4 H pg
(27.0-31.0)
Creatinine 0.5 L mg/dL
(0.7-1.3)
Glucose 105 H mg/dl
(70-99)
Ur Occult Blood Reflex 2+ A
(Negative)
Leukocyte Esterase Rfl 2+ A
(Negative)
Urine RBC 3-6 A /HPF
(0-2)
Urine WBC (Reflex) 16-20 A /HPF
(0-5)
Urine Bacteria (Reflex) Few A
(Negative)
03/14/25 06:32
03/14/25 07:21
Vital Signs
Initial and Last Documented VS:
Initial Vital Signs
Temp Pulse Resp BP Pulse Ox
97.9 F 83 16 143/69 99
03/14/25 06:22 03/14/25 06:22 03/14/25 06:22 03/14/25 06:22 03/14/25 06:22
Last Documented Vital Signs
Temp Pulse Resp BP Pulse Ox
97.9 F 82 21 124/54 99
03/14/25 06:22 03/14/25 10:00 03/14/25 10:00 03/14/25 10:00 03/14/25 06:31
MDM/Problems Addressed
MDM/Problems Addressed:
Patient with evidence of UTI on urinalysis, concerning that he had indwelling catheter 2 weeks ago that could have seeded an infection. I suspect this is most likely the underlying cause of his generalized weakness causing abrupt worsening of his
parkinsonian symptoms. Medically from a UTI standpoint he would be reasonable for discharge home but given his functional limitations and safety risk we will admit for IV antibiotics and further management
Comment
Comment:
EKG independently interpreted by me shows normal sinus rhythm with a right bundle branch block, similar in appearance to tracing from January 2025
*Pulse Oximetry
SaO2: 99
Oxygen Mode of Delivery: Room air
Patient hypoxic: no
*Critical Care Note
Total Time (30-74mins, 75-104mins- exclusive of procedures): Not Applicable
ED Attending Note
-
Portions of this chart may have been created with voice recognition software.� Occasional wrong word or��sound alike� substitutions may have occurred due to the inherent limitations of voice recognition software.
Discharge Plan
Departure
Patient Disposition: Admit
Date of Disposition: 03/14/25
Time of Disposition: 08:42
Admit to: Med/Surg
Presentation/result/management discussed w/ accepting MD/DO: Hospitalist
Discharge Problem:
Acute UTI, Generalized weakness
Prescriptions:
No Action
polyethylene glycol 3350 [Miralax] 17 gram Powder In Packet
17 g PO DAILY
alendronate 70 mg Tablet
70 mg PO MO
midodrine 5 mg Tablet
5 mg PO DAILYPRN PRN (Reason: if sbp <150)
travoprost 0.004 % Drops
1 drp BOTH EYES HS
acetaminophen [Tylenol Extra Strength] 500 mg Tablet
500 mg PO BID
calcium carbonate [Calcium 600] 600 mg calcium (1,500 mg) Tablet
600 mg PO DAILY
ascorbic acid (vitamin C) [Vitamin C] 500 mg Tablet
500 mg PO DAILY
simvastatin 20 mg Tablet
20 mg PO HS
fluoxetine 20 mg Tablet
20 mg PO DAILY
Rx Instructions:
until 04/08/25 then discontinue
losartan 25 mg Tablet
25 mg PO DAILY
carbidopa-levodopa 25-100 mg Tablet
2 tab PO TID
finasteride 5 mg Tablet
5 mg PO DAILY
brimonidine 0.15 % Drops
1 drp BOTH EYES BID
lactulose 10 gram/15 mL Solution
10 g PO DAILYPRN PRN (Reason: constipation)
cholecalciferol (vitamin D3) [Vitamin D3] 25 mcg (1,000 unit) Tablet
25 mcg PO DAILY
omega 0-xkq-izd-fish oil [Fish Oil] 1,200 (144-216) mg Capsule
2 cap PO DAILY
coQ10 (ubiquinol) 200 mg Capsule
200 mg PO DAILY
duloxetine 40 mg Capsule,Delayed Release(Dr/Ec)
40 mg PO DAILY
Rx Instructions:
40mg daily until 04/08/25 then 60mg daily
carbamazepine [Tegretol XR] 200 mg Tablet Extended Release 12 Hr
400 mg PO DAILY
carbamazepine [Tegretol XR] 200 mg Tablet Extended Release 12 Hr
600 mg PO HS
carbidopa 25 mg Tablet
25 mg PO Q8H
Theragen Tablet
1 tab PO DAILY
Referrals:
Miguel Aguilar MD [Family Provider, Internal Medicine]
Interventions
Interventions:
*Risk Screen - Suicide Last Done: 03/14/25 06:29
*General Assessment Last Done: 03/14/25 06:29
*Neglect/Abuse Screening Last Done: 03/14/25 06:29
*ED- Fall Risk Assessment Last Done: 03/14/25 06:39
ED-Musculoskeletal Assessment Last Done: 03/14/25 06:36
ED- Neurological Assessment Last Done: 03/14/25 06:36
ED-Skin Assessment Last Done: 03/14/25 07:30
Discharge Date and Time
Print Language: NEPALI
[2025-03-14 06:55] LABS: Hematocrit 36.7 % (39.0-52.0); Hemoglobin 12.5 g/dL (13.0-18.0); Mean Corp Hgb Conc. 34.1 g/dL (33.0-37.0); Mean Corpuscular Volume 95.1 fL (80.0-94.0); Platelet Count 167 10^3/uL (130-400); Red Cell Dist. Width 14.3 % (11.5-14.5)
[2025-03-14 07:02] LABS: Blood Urea Nitrogen 16 mg/dl (9-20); Calcium 9.1 mg/dl (8.4-10.2); Carbon Dioxide 26 mmol/L (22-30); Chloride 103 mmol/L (98-107); Estimated Creatinine Clearance 114 ml/min; Glucose 105 mg/dl (70-99); Sodium 135 mmol/L (135-145); eGFR > 60.00
[2025-03-14 08:04] LABS: Urine Character Clear (Clear)
[2025-03-14 08:08] LABS: ALT (SGPT) 11 U/L (0-50); AST (SGOT) 26 U/L (17-59); Albumin 4.4 g/dl (3.5-5.0); Alkaline Phosphatase 84 U/L (38-126); Potassium 3.9 mmol/L (3.5-5.1); Total Protein 6.8 g/dl (6.3-8.2)
[2025-03-14 08:24] LABS: Urine Squamous Cell 0-2 /LPF (Few)
[2025-03-14 08:27] LABS: Urine White Cell 16-20 /HPF (0-5)
[2025-03-14] MEDS: ROCEPHIN 1000 MG IV (08:57)
--- NOTE | 2025-03-14 11:03 | HPS.HSE ---
Family Physician
-
Family Physician: Miguel Aguilar
Chief Complaint
-
dysuria, weakness
History of Present Illness
79yo M with PMHx of Parkinsons, orthostatic hypotension, OP, glaucoma, HLD, urinary retention previously 2 weeks with Rios removed 4 days ago came with urinary frequency and burning during urination. He fell once 2 days ago during day when he
tripped over the step while using cane only (recommended walker) and then at night had to go to the bathroom and counld not raise himself from the walker due to weakness. No LOC recported. Patient with Hx of lower back pain with spinal stenosis, but
did not report any worsening of his chronic back pain, no new urinary or bowel retention or incontinence, no new LE paresthesias, neg straight leg raising test b/l on LE. No head trauma reported by patient on this admission
Patient recently d/c in January from after fall and rib Fx
Medical History
Past Medical History
Past Medical History: Reports Other
Additional Past Medical History:
see HPI
Past Surgical History: Reports Other
Additional Past Surgical History:
See HPI
Social History
Tobacco: Non-smoker
Alcohol: None
Drug: None
Family History
Family History: Not pertinent
Allergies / Home Medications
Allergies reflects when Allergies were last updated in [facility].
Home Medications with original date entered in [facility]
Allergy/Medication List:
Allergies
Allergy/AdvReac Type Severity Reaction Status Date / Time
No Known Allergies Allergy Verified 03/14/25 06:29
Home Medications
acetaminophen 500 mg tablet (Tylenol Extra Strength) 500 mg PO BID 03/14/25
alendronate 70 mg tablet 70 mg PO MO 03/14/25
ascorbic acid (vitamin C) 500 mg tablet (Vitamin C) 500 mg PO DAILY 03/14/25
brimonidine 0.15 % eye drops 1 drp BOTH EYES BID 03/14/25
calcium carbonate (Calcium 600) 600 mg PO DAILY 03/14/25
carbamazepine 200 mg tablet,extended release,12 hr (Tegretol XR) 400 mg PO DAILY 03/14/25
carbamazepine 200 mg tablet,extended release,12 hr (Tegretol XR) 600 mg PO HS 03/14/25
carbidopa 25 mg tablet 25 mg PO Q8H 03/14/25
carbidopa 25 mg-levodopa 100 mg tablet 2 tab PO TID 03/14/25
cholecalciferol (vitamin D3) 25 mcg (1,000 unit) tablet (Vitamin D3) 25 mcg PO DAILY 03/14/25
coQ10 (ubiquinol) 200 mg capsule 200 mg PO DAILY 03/14/25
duloxetine 40 mg capsule,delayed release 40 mg PO DAILY 03/14/25
finasteride 5 mg tablet 5 mg PO DAILY 03/14/25
fluoxetine 20 mg tablet 20 mg PO DAILY 03/14/25
lactulose 10 gram/15 mL oral solution 10 g PO DAILYPRN PRN constipation 03/14/25
losartan 25 mg tablet 25 mg PO DAILY 03/14/25
midodrine 5 mg tablet 5 mg PO DAILYPRN PRN if sbp <150 03/14/25
omega 9-xlq-zth-fish oil 1,200 mg (144 mg-216 mg) capsule (Fish Oil) 2 cap PO DAILY 03/14/25
polyethylene glycol 3350 17 gram oral powder packet (Miralax) 17 g PO DAILY constipation 03/14/25
simvastatin 20 mg tablet 20 mg PO HS 03/14/25
therapeutic multivitamin 1 tab PO DAILY 03/14/25
travoprost 0.004 % eye drops 1 drp BOTH EYES HS 03/14/25
Review of Systems
-
History Source: Patient
A 12 point ROS was completed and negative except as noted: Yes
Constitutional: Reports See HPI
: Reports See HPI
Physical Exam
Vital Signs
Vital Signs
Temp Pulse Resp BP Pulse Ox
97.9 F 82 21 124/54 99
03/14/25 06:22 03/14/25 10:00 03/14/25 10:00 03/14/25 10:00 03/14/25 06:31
Physical Exam
General: No Apparent Distress, Comfortable and Conversant
HEENT: NormoCephalic, Anicteric and Moist mucous membranes
Respiratory: Clear; No Wheezes or Crackles
Cardiac: S1/S2, Regular Rhythm and Murmur (mid systolic)
GI: Soft, Non Tender and Non Distended
Genito-urinary: Clear Urine
Musculoskeletal: No Clubbing, No Cyanosis and No Edema
Skin: Warm; No Rash or Jaundice
Neuro: Awake, Alert, Oriented, AO x 3, No Motor Deficits and Nonfocal/grossly intact
Psych: Calm
Laboratory Results
-
03/14/25 06:32
03/14/25 07:21
Laboratory Results
Total Bilirubin 1.1 mg/dl (0.2-1.3) 03/14/25 07:21
AST 26 U/L (17-59) 03/14/25 07:21
ALT 11 U/L (0-50) 03/14/25 07:21
Alkaline Phosphatase 84 U/L (38-126) 03/14/25 07:21
Data Reviewed
-
Lab Data: Labs Reviewed by me
Impression/Plan
-
A/P:
#weakness in b/l LE
without focal neurological deficit
No new/worsening back pain
No direct indication for imaging. Will reassess after PT/OT
Can be 2/2 UTI - treat
check TSH and Cortisol
#UTI with Hx of urinary retention 2/2 BPH
Planned for urodynamic studies as outpatient in [facility] - advised to keep that appt
US kidney and bladder
Ceftriaxone, pending UCx
cont home meds and watch for urinary retention
#Frequent falls with chronic ambulatory deficiency and orthostatic hypotension
As per family: midodrine PRN for SBP<150 mmHgb Rx by PCP
PT/OT
#Parkinsons
#Chronic constipation
#Anxiety d/o
#HLD
#Glaucome
cont home meds
#Heart murmur
known to patient and already followed by outpatient physician
#Macrocytosis
check B12/folate
DVT ppx hep
DNR/DNI - as discussed in detals with patient with the presence of and daughter
I have spent at least 78min reviewing chart, test results, communication with family and providing direct patient care
--- NOTE | 2025-03-14 11:16 | CM ---
CM reviewed chart and met with pt and bedside in ED. Pt lives with his in 3 story home, 3 [address], has first floor BR/BA.
Independent in ADLs and personal care, uses rolling walker for ambulation.
Recent history of STR at [facility], no hx VN, hx of Outpatient PT, pt states has script to resume OP PT.
PCP: Miguel Aguilar
Pharmacy: [facility]
CM will continue to follow for all discharge planning needs.
[2025-03-14 12:00] LABS: Cortisol, Random 14.8 ug/dl
--- NOTE | 2025-03-14 12:30 | PTCARENOTE ---
03/14- Patient transferred and oriented to unit without issue. AAOX3, Anxious but cooperative. Patient states he fell at home yesterday, which is part of what brought him in. MedSurg. Bed Alarm placed. Patient has own Carvidopa from home- tubed
the pharmacy. All other home meds sent home. No concerns or issues reported at this time.
[2025-03-14 12:36] LABS: Folate 14.9 ng/ml (2.76-20); Vitamin B12 740 pg/ml (239-931)
[2025-03-14] MEDS: HEPARIN 5000 UNITS SC (15:41)
[2025-03-14] MEDS: SINEMET 25-100 2 TABLET PO ×2 (15:41→21:24)
[2025-03-14] MEDS: NON-FORMULARY ITEM 1 MG PO (16:21)
[2025-03-14] MEDS: TYLENOL 650 MG PO (19:36)
[2025-03-14] MEDS: TEGRETOL XR (EXTENDED RELEASE) 200 MG PO (21:24)
[2025-03-14] MEDS: LIPITOR 10 MG PO (21:25)
[2025-03-14] MEDS: TEGRETOL XR (EXTENDED RELEASE) 400 MG PO (21:25)
[2025-03-14] MEDS: NON-FORMULARY ITEM 25 MG PO (21:27)
[2025-03-14] MEDS: ALPHAGAN P 0.15% EYE DROPS 1 DROP BOTH EYES (21:28)
[2025-03-14] MEDS: XALATAN OPHTHALMIC SOLUTION 1 DROP BOTH EYES (21:28)
[2025-03-15] MEDS: HEPARIN SC (01:00)
[2025-03-15 07:40] VITALS: BP 121/65
[2025-03-15] MEDS: HEPARIN 5000 UNITS SC ×3 (08:47→23:19)
[2025-03-15] MEDS: ROCEPHIN 1000 MG IV (08:47)
[2025-03-15] MEDS: STERILE WATER FOR INJECTION 10 ML IV (08:47)
--- NOTE | 2025-03-15 08:47 | W.PN.HOSP.TC ---
Today's Communication/Plan
-
See PN
Assessment / Plan
Assessment / Plan
79yo M with PMHx of Parkinsons, orthostatic hypotension, OP, glaucoma, HLD, urinary retention previously 2 weeks with Rios removed 4 days ago came with urinary frequency and burning during urination. Also few falls with most recent onto his back
due to poor ballance. PAtient had ballance problems for long time now.
A/P:
#weakness in b/l LE on standing , describd as an abcense of the ballance and legs giving out when attempts to walk.
without focal neurological deficit on exam
No new/worsening back pain
PT/OT
Can be 2/2 UTI - treat
TSH WNL, Cortisol 14.8 - no direct over insuffciency suspected with preserved trength in upper extremities and ability to hold his weight on both legs
#Recent displaced L 7-8-9th ribs
#Non-displaced L 5-6th rib Fx
#LArge bruise on R scapulae
currently asymptomatic on L
Has new pain on R - xr
#UTI with Hx of urinary retention 2/2 BPH
Planned for urodynamic studies as outpatient in [facility] - advised to keep that appt
US kidney and bladder
Ceftriaxone, pending UCx
cont home meds and watch for urinary retention
#Frequent falls with chronic ambulatory deficiency due to ballance problems and orthostatic hypotension
As per family: midodrine PRN for SBP<150 mmHgb Rx by PCP
PT/OT
#Parkinsons
#Chronic constipation
#Anxiety d/o
#HLD
#Glaucome
cont home meds
#Heart murmur
known to patient and already followed by outpatient physician
#Macrocytosis
B12/folate WNL
monitor as outpatient
mIght need hematology eval if persistent - will refer to PCP for that
DVT ppx hep
DNR/DNI - as discussed in detals with patient with the presence of and daughter
I have spent at least 52min reviewing chart, test results, communication with family and providing direct patient care
Anticipated Discharge: 24 - 48 hours
Subjective/Interval History
-
Date of Service: March 15, 2025
Objective Data
-
Vital Signs:
Vital Signs
Temp Pulse Resp BP Pulse Ox
97.5 F 86 16 121/65 97
03/15/25 07:40 03/15/25 07:40 03/15/25 07:40 03/15/25 07:40 03/15/25 07:40
I&O
03/14/25 03/15/25 03/16/25
06:59 06:59 06:59
Intake Total 830 / 830
Output Total 1170 / 1170
Balance -340 / -340
Review of Systems
-
History Source: Patient
All other systems: Reviewed and negative
Constitutional: Reports Other
Musculoskeletal: Reports Other (R lower rib cage pain)
Physical Exam
-
General: No Apparent Distress
HEENT: Normocephalic
Respiratory: Clear to Auscultation
Cardiac: Regular Rhythm
GI: Soft, Nontender and Nondistended
Skin: Warm
Neuro: Awake, Alert, Oriented, AO x 3 and Nonfocal/Grossly Intact
Psych: Calm
[2025-03-15] MEDS: CYMBALTA DELAYED RELEASE 40 MG PO (08:48)
[2025-03-15] MEDS: SINEMET 25-100 2 TABLET PO ×3 (08:48→21:31)
[2025-03-15] MEDS: TEGRETOL XR (EXTENDED RELEASE) 400 MG PO ×2 (08:48→21:31)
[2025-03-15] MEDS: PROZAC 20 MG PO (08:48)
[2025-03-15] MEDS: OSCAL CAL 500 500 MG PO (08:48)
[2025-03-15] MEDS: COZAAR 25 MG PO (08:48)
[2025-03-15] MEDS: PROSCAR 5 MG PO (08:49)
[2025-03-15] MEDS: NON-FORMULARY ITEM 25 MG PO ×3 (08:49→21:32)
[2025-03-15] MEDS: ALPHAGAN P 0.15% EYE DROPS 1 DROP BOTH EYES ×2 (08:53→19:45)
--- NOTE | 2025-03-15 09:40 | CON.NEURO ---
Addendum entered and electronically signed by Wade Dang MD 03/15/25 14:58:
Studies reviewed.
I have personally examined the patient. I reviewed and agree with the UPPER TIER's Note.
My addenda:
Awake, not fully alert, interactive. No acute distress.
Speech nearly mute.
Follows 1-step requests w/ mild difficulty. No tremor.
Extra-ocular movements grossly intact.
Facial movements full and symmetric. Hearing intact to normal conversational volume.
Normal UE movements bilaterally.
Neck: full ROM.
Chest: no dyspnea
Heart: no JVD
Ext: (-) Clubbing, (-) Cyanosis, (-) Edema
IMPRESSIONS/RECOMMENDATIONS:
Abrupt onset of worsening gait in a patient with previously diagnosed Parkinson's disease and likely underlying Parkinson disease dementia
Patient's gait dysfunction is most likely combination of apraxia as well as orthostatic hypotension
Follow orthostatic blood pressures
Provide abdominal binder
Encourage fluids
Check speech therapy due to high risk of the patient developing dysphagia
Rehabilitation evaluations and treatment
D/W family
All questions answered.
Will continue to follow as needed. Patient should follow with usual outpatient neurologist.
Original Note:
Neuro Assessment/Plan
Assessment
This is an 79 yo male with PMHx of Parkinson's disease, orthostatic hypotension, OP, glaucoma, HLD, urinary retention presented to [facility] on 03/14/2025 s/p fall.
Plan
Impressions:
I. progressive weakness with freezing episodes with underlying Parkinson's Disease
II. orthostatic hypotension
-orthostatic vitals BID, encourage fluid and abdominal binder, may need to restart midodrine
-continue carbidopa levodopa for Parkinson's disease
-follow up outpatient with neurologist Dr. Sarabia
-PT/OT evaluations
-fall precautions
All questions enouraged and answered, plan of care discussed with Dr. Dang, patient and
Consultation
Order
Date of Consultation: 03/15/25
Requesting Provider: hospitalist
Reason for Consult: falls and history of Parkinson's disease
Subjective/Objective
Subjective Data
Date of Service: March 15, 2025
This is an 79 yo male with PMHx of Parkinson's disease, orthostatic hypotension, OP, glaucoma, HLD, urinary retention previously 2 weeks with Rios removed 5 days ago now with urinary frequency and burning during urination. Came to [facility] on
03/14/2025 to be evaluated for weakness and falls. He fell once on Friday (03/13/2025) during day when he tripped over the step while using cane only (recommended walker) and then at night had to go to the bathroom and could not raise himself from
the walker due to weakness and fell again. No LOC or head strike reported. Patient with history of lower back pain with spinal stenosis, but did not report any worsening of his chronic back pain, no new urinary or bowel retention or incontinence, no
new LE paresthesias, negative straight leg raising test b/l on LE. No head trauma reported by patient on this admission. Patient was recently discharged in January from after fall and rib fracture.
He follows with his neurologist Dr. Sarabia from [facility] for his Parkinson's disease. He currently takes carbidopa levodopa 2 tabs TID. Adapted from neurology note by Dr. Sarabia on 11/2024, 'No significant changes in condition since the last visit.
Medication regimen unchanged. No premature wearing off of medication effects. No tremor or slowness reported, but notes increased slowness and stiffness, especially in the morning. Attempted earlier medication intake without alleviation of
stiffness. Symptoms less severe post-exercise. 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 Balance suboptimal, difficulty walking due to leg pain from back. concerned about balance, especially when turning
or pivoting. Medication taken around mealtimes at 8:00 AM, 12:00 PM, and 6:00 PM. No nausea since starting 25 mg carbidopa.
Continues telehealth visits with Dr. Samayoa. Last meeting 1.5 weeks ago, reported Prozac ineffective, dosage increased to 60 mg. Plans follow-up in 10 weeks. No sleep disturbances.
ASSESSMENT and RECOMMENDATIONS:
1. Parkinson's Disease: Stable. No significant symptom changes, but notes increased slowness and stiffness, especially in the morning.
- Continue exercise regimen and physical therapy for balance issues
- Prescription for Crexont sent to pharmacy for benefit analysis
- If covered by insurance, switch to Crexont, taking 2 capsules 4 times a day (8 AM, 12 PM, 6 PM, and 10 PM)
- If cost prohibitive or not covered, continue current medication regimen
- Monitor for side effects such as dizziness, lightheadedness, confusion, or dyskinesia, and contact office if these occur
- Restart carbidopa if nausea returns
2. Depression: No mood improvement.
- Continue current dose of Prozac 60 mg daily
- Follow up with Dr. Samayoa in 10 weeks to reassess effectiveness
- Discuss alternative medications such as Lexapro, Zoloft, or mirtazapine if current treatment remains ineffective'
Objective Data
Vital Signs
Temp Pulse Resp BP Pulse Ox
97.5 F 86 16 121/65 97
03/15/25 07:40 03/15/25 08:48 03/15/25 07:40 03/15/25 08:48 03/15/25 07:40
Lab Results
03/14/25 06:32
03/14/25 07:21
Sodium 135 mmol/L (135-145) 03/14/25 06:32
Potassium 3.9 mmol/L (3.5-5.1) 03/14/25 07:21
BUN 16 mg/dl (9-20) 03/14/25 06:32
Glucose 105 mg/dl (70-99) H 03/14/25 06:32
Calcium 9.1 mg/dl (8.4-10.2) 03/14/25 06:32
Vitamin B12 740 pg/ml (837-721) 03/14/25 07:21
Patient Allergies
No Known Allergies Allergy (Verified 03/14/25 06:29)
Physical Exam
-
General: Comfortable and Other (masked facies)
HEENT: Normocephalic, Atraumatic and Anicteric
Neck: Full Range of Motion
Respiratory: No Dyspnea
Cardiac: No JVD
GI: Non-distended
Skin: Unremarkable
Extremities: No Clubbing, No Cyanosis and Edema +1 (LEs)
Psych: Unremarkable
Extended Neurological Exam
Mood & Affect: Mood Unremarkable
Attention Span & Concentration: Awake, Alert, Interactive and No Difficulty with 2 Step Request
Memory: Vague and Incomplete Historian
Tremor: Hand Tremor Absent and Head Tremor Absent
Speech: Other (hypophonic)
Cranial Nerve II: Left Eye: Visual Cuevas Grossly Intact
Cranial Nerve II: Right Eye: Visual Cuevas Grossly Intact
Cranial Nerves III, IV, : Extraocular Movement: Extraocular Movement Full in all Directions
Cranial Nerve VII: Facial Symmetry: Normal Facial Symmetry
Cranial Nerve VIII: Hearing: Unremarkable Hearing to Normal Conversational Volume
Muscle Strength, Overall: Reduced Throughout
Pronator Drift: No Drift in Upper Extremities and No Drift in Lower Extremities
Gait & Station: Other (apraxia with decreased arm swing and multiple episodes of freezing)
Data Reviewed
-
CT Head: Report Reviewed and Image Reviewed
CT Cervical Spine: Report Reviewed and Image Reviewed
Orthostatic Testing: Ordered
Labs: Report Reviewed
Reviewed with: Physician, Patient and Family
Old Records: Summarized
Medications
-
Active Medications
Generic Name Dose Route Start Last Admin
Trade Name Freq PRN Reason Stop Dose Admin
Acetaminophen 650 mg 03/14/25 12:05 03/14/25 19:36
Acetaminophen 325 Mg Tablet PO 04/11/25 12:04 650 mg
Q4HPRN PRN Administration
mild pain/TARIQ/temp> 100.4F
Atorvastatin Calcium 10 mg 03/14/25 22:00 03/14/25 21:25
Atorvastatin (Lipitor) 10 Mg Tablet PO 04/11/25 21:59 10 mg
HS EVONNE Administration
Bisacodyl 10 mg 03/14/25 12:05
Bisacodyl 10 Mg Rectal Suppository RECTAL 04/11/25 12:04
[id number] PRN
constipation
Brimonidine Tartrate 1 drop 03/14/25 20:00 03/15/25 08:53
Brimonidine 0.15% (Ophthalmic Solution) 5 Ml Bottle BOTH EYES 04/11/25 19:59 1 drop
BID EVONNE Administration
Calcium Carbonate 500 mg 03/15/25 08:00 03/15/25 08:48
Calcium Carbonate 500 Mg Tablet PO 04/12/25 07:59 500 mg
DAILY EVONNE Administration
Carbamazepine 400 mg 03/15/25 08:00 03/15/25 08:48
Carbamazepine 400 Mg Extended Release (12 Hour) Tablet PO 04/12/25 07:59 400 mg
DAILY EVONNE Administration
Carbamazepine 200 mg 03/14/25 22:00 03/14/25 21:24
Carbamazepine 100 Mg Extended Release (12 Hour) Tablet PO 04/11/25 21:59 200 mg
HS EVONNE Administration
Carbamazepine 400 mg 03/14/25 22:00 03/14/25 21:25
Carbamazepine 400 Mg Extended Release (12 Hour) Tablet PO 04/11/25 21:59 400 mg
HS EVONNE Administration
Carbidopa/Levodopa 2 tablet 03/14/25 16:00 03/15/25 08:48
Carbidopa (25 Mg)/Levodopa (100 Mg) Regular Release Tablet PO 04/11/25 15:59 2 tablet
TID EVONNE Administration
Ceftriaxone Sodium 1,000 mg 03/15/25 09:00 03/15/25 08:47
Ceftriaxone 1000 Mg / 10 Ml Vial IV 1,000 mg
Q24H EVONNE Administration
Duloxetine HCl 40 mg 03/15/25 08:00 03/15/25 08:48
Duloxetine Delayed Release 20 Mg Capsule PO 04/12/25 07:59 40 mg
DAILY EVONNE Administration
Finasteride 5 mg 03/15/25 08:00 03/15/25 08:49
Finasteride 5 Mg Tablet PO 04/12/25 07:59 5 mg
DAILY EVONNE Administration
Fluoxetine HCl 20 mg 03/15/25 08:00 03/15/25 08:48
Fluoxetine 20 Mg Capsule PO 04/12/25 07:59 20 mg
DAILY EVONNE Administration
Heparin Sodium 5,000 units 03/14/25 16:00 03/15/25 08:47
Heparin 5,000 Units/Ml 1 Ml Vial SC 04/11/25 15:59 5,000 units
Q8 EVONNE Administration
Lactulose 10 grams 03/14/25 12:05
Lactulose Solution (20 Grams/30 Ml) 30 Ml Cup PO 04/11/25 12:04
DAILYPRN PRN
constipation
Latanoprost 1 drop 03/14/25 22:00 03/14/25 21:28
Latanoprost 0.005% (Ophthalmic Solution) 2.5 Ml Bottle BOTH EYES 04/11/25 21:59 1 drop
HS EVONNE Administration
Losartan Potassium 25 mg 03/15/25 08:00 03/15/25 08:48
Losartan 25 Mg Tablet PO 04/12/25 07:59 25 mg
DAILY EVONNE Administration
Midodrine 5 mg 03/14/25 12:05
Midodrine 5 Mg Tablet PO 04/11/25 12:04
DAILYPRN PRN
if sbp <150
Carbidopa 25 Mg 0 mg 03/14/25 16:00 03/15/25 08:49
Tablet - 1 Tablet ( PO 04/11/25 15:59 25 mg
25mg) Po Tid TID EVONNE Administration
Polyethylene Glycol 17 grams 03/14/25 12:05
Polyethylene Glycol Powder 17 Grams Packet PO 04/11/25 12:04
DAILYPRN PRN
constipation
Senna/Docusate Sodium 1 tablet 03/14/25 12:05
Docusate W/Senna (Alejandrina-Colace) Tablet PO 04/11/25 12:04
BIDPRN PRN
constipation
Sodium Chloride 0 flush 03/14/25 13:00
Sodium Chloride 0.9% (Flush) Syringe IV 04/11/25 12:59
PER PROTOCOL EVONNE
Sterile Water 10 ml 03/15/25 09:00 03/15/25 08:47
Sterile Water For Injection 10 Ml Vial IV 04/12/25 08:59 10 ml
Q24H EVONNE Administration
Home Medications
�Medication �Instructions �Recorded
acetaminophen 500 mg tablet 500 mg PO BID 03/14/25
(Tylenol Extra Strength)
alendronate 70 mg tablet 70 mg PO MO 03/14/25
ascorbic acid (vitamin C) 500 mg 500 mg PO DAILY 03/14/25
tablet (Vitamin C)
brimonidine 0.15 % eye drops 1 drp BOTH EYES BID 03/14/25
calcium carbonate (Calcium 600) 600 mg PO DAILY 03/14/25
carbamazepine 200 mg 400 mg PO DAILY 03/14/25
tablet,extended release,12 hr
(Tegretol XR)
carbamazepine 200 mg 600 mg PO HS 03/14/25
tablet,extended release,12 hr
(Tegretol XR)
carbidopa 25 mg tablet 25 mg PO Q8H 03/14/25
carbidopa 25 mg-levodopa 100 mg 2 tab PO TID 03/14/25
tablet
cholecalciferol (vitamin D3) 25 25 mcg PO DAILY 03/14/25
mcg (1,000 unit) tablet (Vitamin
D3)
coQ10 (ubiquinol) 200 mg capsule 200 mg PO DAILY 03/14/25
duloxetine 40 mg capsule,delayed 40 mg PO DAILY 03/14/25
release
finasteride 5 mg tablet 5 mg PO DAILY 03/14/25
fluoxetine 20 mg tablet 20 mg PO DAILY 03/14/25
lactulose 10 gram/15 mL oral 10 g PO DAILYPRN PRN constipation 03/14/25
solution
losartan 25 mg tablet 25 mg PO DAILY 03/14/25
midodrine 5 mg tablet 5 mg PO DAILYPRN PRN if sbp <150 03/14/25
omega 1-ygu-rtw-fish oil 1,200 mg 2 cap PO DAILY 03/14/25
(144 mg-216 mg) capsule (Fish Oil)
polyethylene glycol 3350 17 gram 17 g PO DAILY constipation 03/14/25
oral powder packet (Miralax)
simvastatin 20 mg tablet 20 mg PO HS 03/14/25
therapeutic multivitamin 1 tab PO DAILY 03/14/25
travoprost 0.004 % eye drops 1 drp BOTH EYES HS 03/14/25
Past History
Past History
ED Past Medical History: Hypercholesterolemia and Other (Parkinson's)
ED Past Surgical History: Orthopedic (Back surgery)
Family/Social History
Tobacco: Non-smoker
Alcohol: None
Personal:
Living: with family
[2025-03-15 10:31] VITALS: BP 113/57; BP 126/61; BP 126/67; PULSE 86; PULSE 89; PULSE 95; O2SAT 97
--- NOTE | 2025-03-15 10:51 | CM ---
CM reviewed chart, patient seen bedside with , discussed therapy recommendation of short term rehab. reports patient recently discharged from [facility], has been staying at [address] for a 6 week respite stay. Patient and
agreeable to referral to [facility] to return to rehab, will place referral in [facility]. CM will continue to follow for all discharge planning needs.
Plan; referral to [facility] SNF
--- NOTE | 2025-03-15 11:22 | PHA.VAN.IN ---
Assessment
- Assessment
Renal Function: Appears similar to baseline
Concomitant Antimicrobials: piperacillin/tazobactam
AUC Dosing Plan
- Dosing Variables
Dosing Weight (kg): 81
Dosing CrCl (ml/min): 114
Vd coefficient (L/kg): 0.7
- Empiric Dosing
Initial / Loading Dose: 2000mg - administration pending
Maintenance Regimen: Vanc 1250mg Q12H starting 03/16 06
Estimated AUC (mcg*h/mL): 478
Estimated Peak (mcg*h/mL): 31.7
Estimated Trough (mcg/ml): 11.2
Estimated Half Life (H): 7
- Monitoring
No levels ordered at this time: consider levels in next few days
Pharmacokinetics Vancomycin I
- -
Patient Age: 79
Patient Sex: Male
Vancomycin Day #: 1
Indication: Genito-Urinary Tract
Requesting Provider: Dr. Lawson
Pertinent Antimicrobial Allergies:
NKDA
Height / Weight:
Height 6 ft 2 in
Actual Weight 80.796 kg
Pertinent Past Medical History: piperacillin/tazobactam
- Vital Signs / Lab Results
Temp Pulse Resp BP Pulse Ox
97.5 F 86 16 121/65 97
03/15/25 07:40 03/15/25 08:48 03/15/25 07:40 03/15/25 08:48 03/15/25 07:40
Lab Results - Hematology
03/14/25
06:32
WBC 7.3
Lab Results - Chemistry
03/14/25 03/14/25
06:32 07:21
BUN 16
Creatinine 0.5 L
Estimated Creat Clear 114
Albumin Cancelled 4.4
Lab Results - Urine
03/14/25
07:21
Urine Nitrite (Reflex) Negative
Leukocyte Esterase Rfl 2+ A
Urine WBC (Reflex) 16-20 A
Ur Squamous Epith Cells 0-2
Urine Bacteria (Reflex) Few A
Microbiology Results
03/14/25 07:21 Urine Culture - Preliminary
Urine Enterococcus species
[2025-03-15] MEDS: ZOSYN 50 IV ×3 (11:23→21:33)
[2025-03-15] MEDS: VANCOCIN 540 MG IV (12:26)
--- NOTE | 2025-03-15 13:18 | PN.CDI ---
CDI
- -
CDI:
Physician Documentation Request
Admit Date: 03/14/25 11:26
Dear Doctor Lulu,
Please review the following and provide your response in the progress notes.
Clinical Indicators:
- 8 PN indicate rib fractures
- 'Also few falls with most recent onto his back'
- per H&P home meds alendronate, calcium carbonate, carbidopa, cholecalciferol
- 03/15 Rib xray 'Subacute fractures of the left posterolateral 5th, 6th, 7th, 8th, and 9th ribs'
- 'Mild displacement of the left posterior 7th and 8th rib fractures'
- 'Chronic healed fractures of the right lateral 9th, 10th, and 11th ribs'
Please provide further specificity regarding the diagnosis of rib fractures:
Traumatic rib fractures
Pathological rib fractures due to parkinsons
Due to a combination of trauma and a pathological process but the trauma alone would not likely have been sufficient to cause the fracture
Other (please specify)
Use of terms such as suspected, likely, concern for, or probable (associated with a specific diagnosis that is being evaluated, monitored, or treated as if it exists) are acceptable and can be coded in the inpatient setting, when documented at the
time of discharge.
Thank you,
Raymundo Young RN
CDI Specialist
Please use your independent medical judgment in providing your response.
[2025-03-15 15:30] VITALS: BP 138/76
--- NOTE | 2025-03-15 16:07 | PTOTSP ---
Dysphagia Evaluation
Oral/pharyngeal swallowing within functional limits during clinical bedside swallowing evaluation, though patient is at an elevated risk for dysphagia due to Parkinsons disease, concern for Parkinson's dementia, and acute UTI.
Recommend:
1. Regular, Thin Liquids
2. General aspiration precautions and alternate solids/liquids
3. Medications as best tolerated
4. No further dysphagia therapy warranted. Reconsult as appropriate.
[2025-03-15] MEDS: TEGRETOL XR (EXTENDED RELEASE) 200 MG PO (21:31)
[2025-03-15] MEDS: LIPITOR 10 MG PO (21:31)
[2025-03-15] MEDS: XALATAN OPHTHALMIC SOLUTION 1 DROP BOTH EYES (21:33)
[2025-03-15 23:46] VITALS: BP 140/83
[2025-03-16] MEDS: ZOSYN 50 IV ×2 (04:48→09:18)
[2025-03-16] MEDS: VANCOCIN 275 MG IV (05:24)
[2025-03-16 07:00] VITALS: BP 122/66
[2025-03-16] MEDS: CYMBALTA DELAYED RELEASE 40 MG PO (08:37)
[2025-03-16] MEDS: PROZAC 20 MG PO (08:38)
[2025-03-16] MEDS: TEGRETOL XR (EXTENDED RELEASE) 400 MG PO ×2 (08:38→19:55)
[2025-03-16] MEDS: SINEMET 25-100 2 TABLET PO ×3 (08:38→19:55)
[2025-03-16] MEDS: OSCAL CAL 500 500 MG PO (08:38)
[2025-03-16] MEDS: PROSCAR 5 MG PO (08:38)
[2025-03-16] MEDS: HEPARIN 5000 UNITS SC ×3 (08:39→23:19)
[2025-03-16] MEDS: NON-FORMULARY ITEM 25 MG PO ×3 (08:40→19:56)
[2025-03-16] MEDS: ALPHAGAN P 0.15% EYE DROPS 1 DROP BOTH EYES ×2 (08:40→19:55)
[2025-03-16] MEDS: COZAAR 25 MG PO (08:41)
[2025-03-16 11:00] VITALS: BP 108/56; BP 126/52; BP 127/68; PULSE 87; PULSE 90; PULSE 95
--- NOTE | 2025-03-16 11:15 | CM ---
Addendum entered by Sheyla Ribeiro 03/16/25 12:41:
[facility]- no beds the rest of the week
[facility]- [facility]ha will review
SNF list provided to spouse, identified additional facilities ([facility], [facility] and [facility]). Referrals placed in [facility]
Spoke w/ Mariaelena/Alie, patient is not a part of the [employer] waiver program.
Original Note:
Chart reviewed. Per hospitalist, patient may be stable for d/c today
Spouse prefers for patient to go to [facility] as he was recently there. [facility] does not have any beds at this time. Spoke w/ spouse to discuss additional SNF options, spouse identified [facility] and [facility]. CM placed referrals
Plan: SNF, pending accepting facility
--- NOTE | 2025-03-16 12:27 | W.PN.URO.CBU ---
Today's Communication / Plan
-
keep anderson through discharge
Assessment / Plan
-
recurrenturinary rention uti placed anderson discussed with has lacigist miladys colon
Diagnosis
-
Date of Service: March 16, 2025
-
Patient Diagnosis:
urinary retention difficut anderson
Post Op Day:
Subjective
-
cannot void
Objective
-
Vital Signs
Temp Pulse Resp BP Pulse Ox
97.6 F 87 18 127/68 96
03/16/25 11:00 03/16/25 11:00 03/16/25 11:00 03/16/25 11:00 03/16/25 11:00
Intake and Output
03/15/25 03/16/25 03/17/25
06:59 06:59 06:59
Intake Total 830 / 830 270 / 270
Output Total 1170 / 1170 1350 / 1350 200 / 200
Balance -340 / -340 -1080 / -1080 -200 / -200
Intake:
Oral fluids 830 / 830 270 / 270
Output:
Urine, Voided 750 / 750 350 / 350 200 / 200
Straight cath output 420 / 420 1000 / 1000
Other:
How many times incontinent 1 2
MODERATE amount urine
How many times incontinent 1
SATURATED amount urine
Laboratory Results
03/14/25 06:32
03/14/25 07:21
Review of Systems
-
: Difficulty Voiding
Physical Exam
-
General - well developed, well nourished, no acute distress
Chest - clear bilaterally
Abdomen - soft, non-tender, positive bowel sounds, no CVAT, no incisional pain or distention
Genitalia - normal
Rectal - normal
Skin - warm & dry with no rash
Neuro - AOx3, no motor deficits
Extremities - no clubbing, no cyanosis, no edema
Incision - clean, dry
Dressing - clean, dry, intact
Care Review
Data Reviewed
Discussed with: Hospitalist, Nursing and Family
--- NOTE | 2025-03-16 12:44 | W.PN.HOSP.TC ---
Today's Communication/Plan
-
CM for STR
Amoxicillin for 2 weeks
Assessment / Plan
Assessment / Plan
79yo M with PMHx of Parkinsons, orthostatic hypotension, OP, glaucoma, HLD, urinary retention previously 2 weeks with Rios removed 4 days ago came with urinary frequency and burning during urination. Also few falls with most recent onto his back
due to poor balance. Patient had balance problems for long time now.
A/P:
#weakness in b/l LE on standing , described as an absence of the balance and legs giving out when attempts to walk.
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
without focal neurological deficit on exam
No new/worsening back pain
PT/OT
Can be 2/2 UTI - treat
TSH WNL, Cortisol 14.8 - no direct over insufficiency suspected with preserved strength in upper extremities and ability to hold his weight on both legs
XR lumbar spuine w/o acute Fx
#Traumatic Recent displaced L 7-8-9th ribs Fx
#traumatic Non-displaced L 5-6th rib Fx
#Old traumatic Fx right lateral 9th, 10th, and 11th ribs
#LArge bruise on R scapulae
pain mgmt
#UTI with Hx of urinary retention 2/2 BPH
Planned for urodynamic studies as outpatient in [facility] - advised to keep that appt
US kidney and bladder
Ucx with ampicillin-sensitive E.faecalis
Rios reinserted by Urology on 03/16/25 - follow up with established outpatient urologist upon d/c
#Frequent falls with chronic ambulatory deficiency due to balance problems and orthostatic hypotension
As per family: midodrine PRN for SBP<150 mmHgb Rx by PCP
PT/OT
#Parkinson
#Chronic constipation
#Anxiety d/o
#HLD
#Glaucome
cont home meds
Neurologist evaluated, no further medication change or imaging during hospital stay advised
#Heart murmur
known to patient and already followed by outpatient physician
#Macrocytosis
B12/folate WNL
monitor as outpatient
might need hematology eval if persistent - will refer to PCP for that
DVT ppx hep
DNR/DNI - as discussed in detals with patient with the presence of and daughter
I have spent at least 52min reviewing chart, test results, communication with family and providing direct patient care
Anticipated Discharge: Within 24 hours
Subjective/Interval History
-
Date of Service: March 16, 2025
Objective Data
-
Vital Signs:
Vital Signs
Temp Pulse Resp BP Pulse Ox
97.6 F 87 18 127/68 96
03/16/25 11:00 03/16/25 11:00 03/16/25 11:00 03/16/25 11:00 03/16/25 11:00
I&O
03/15/25 03/16/25 03/17/25
06:59 06:59 06:59
Intake Total 830 / 830 270 / 270
Output Total 1170 / 1170 1350 / 1350 200 / 200
Balance -340 / -340 -1080 / -1080 -200 / -200
Review of Systems
-
History Source: Patient
All other systems: Reviewed and negative
Musculoskeletal: Reports Other (lower back pain)
Physical Exam
-
General: No Apparent Distress
HEENT: Normocephalic
GI: Soft, Nontender and Nondistended
Neuro: Awake, Alert, Oriented and AO x 3
Psych: Calm
[2025-03-16] MEDS: AMOXIL 500 MG PO ×2 (12:54→19:55)
[2025-03-16 14:31] VITALS: BP 109/61; BP 117/60; BP 118/61; PULSE 87; PULSE 93
[2025-03-16 15:00] VITALS: BP 120/66
[2025-03-16] MEDS: TEGRETOL XR (EXTENDED RELEASE) 200 MG PO (19:55)
[2025-03-16] MEDS: LIPITOR 10 MG PO (19:55)
[2025-03-16] MEDS: XALATAN OPHTHALMIC SOLUTION 1 DROP BOTH EYES (19:56)
[2025-03-16 23:52] VITALS: BP 130/76
[2025-03-17] MEDS: AMOXIL 500 MG PO ×3 (03:05→21:25)
[2025-03-17 07:00] VITALS: BP 132/75
[2025-03-17] MEDS: TEGRETOL XR (EXTENDED RELEASE) 400 MG PO ×2 (09:00→21:25)
[2025-03-17] MEDS: PROSCAR 5 MG PO (09:00)
[2025-03-17] MEDS: ALPHAGAN P 0.15% EYE DROPS 1 DROP BOTH EYES ×2 (09:00→21:25)
[2025-03-17] MEDS: PROZAC 20 MG PO (09:00)
[2025-03-17] MEDS: COZAAR 25 MG PO (09:00)
[2025-03-17] MEDS: NON-FORMULARY ITEM 25 MG PO ×3 (09:00→21:25)
[2025-03-17] MEDS: HEPARIN 5000 UNITS SC (09:00)
[2025-03-17] MEDS: CYMBALTA DELAYED RELEASE 40 MG PO (09:00)
[2025-03-17] MEDS: OSCAL CAL 500 500 MG PO (09:00)
[2025-03-17] MEDS: SINEMET 25-100 2 TABLET PO ×3 (09:00→21:25)
--- NOTE | 2025-03-17 10:44 | CM ---
Addendum entered by Ira Giron 03/17/25 13:58:
Transport held, updates to [facility], will have bed for patient tomorrow.
Original Note:
CM reviewed chart, patient and seen bedside, discussed [facility] able to accept. Patient and agreeable, IMM verbally reviewed, provided with copy, placed in chart. Patient scheduled for 2:30 p.m. ambulance transport- [facility]
Center updated. CM will continue to follow for all discharge planning needs.
Plan; [facility] SNF, 2:30 p.m. ambulance transport
[facility]
Report: [phone] ext [phone]
--- NOTE | 2025-03-17 10:45 | W.PN.HOSP.TC ---
Today's Communication/Plan
-
if hematuria improvs -d/c to rehab
stop heparin ppx
Assessment / Plan
Assessment / Plan
79yo M with PMHx of Parkinsons, orthostatic hypotension, OP, glaucoma, HLD, urinary retention previously 2 weeks with Rios removed 4 days ago came with urinary frequency and burning during urination. Also few falls with most recent onto his back
due to poor balance. Patient had balance problems for long time now.
A/P:
#weakness in b/l LE on standing , described as an absence of the balance and legs giving out when attempts to walk.
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
without focal neurological deficit on exam
No new/worsening back pain
PT/OT
Can be 2/2 UTI - treat
TSH WNL, Cortisol 14.8 - no direct over insufficiency suspected with preserved strength in upper extremities and ability to hold his weight on both legs
XR lumbar spuine w/o acute Fx
#Traumatic Recent displaced L 7-8-9th ribs Fx
#traumatic Non-displaced L 5-6th rib Fx
#Old traumatic Fx right lateral 9th, 10th, and 11th ribs
#LArge bruise on R scapulae
pain mgmt
#UTI with Hx of urinary retention 2/2 BPH
#Traumatic hematuria
Hold heparin
Planned for urodynamic studies as outpatient in [facility] - advised to keep that appt
US kidney and bladder
Ucx with ampicillin-sensitive E.faecalis
Rios reinserted by Urology on 03/16/25 - follow up with established outpatient urologist upon d/c
#Delirium 2/2 Parkinson and sundowning
nightly
Unfortunately pulled on Rios causing traumatic hematuria
with prolonged QTc - not candidate for antipsychotics
Concern for rebound delirium with BZD
advised frequent reorientations
#Frequent falls with chronic ambulatory deficiency due to balance problems and orthostatic hypotension
As per family: midodrine PRN for SBP<150 mmHgb Rx by PCP
PT/OT
#Parkinson
#Chronic constipation
#Anxiety d/o
#HLD
#Glaucoma
cont home meds
Neurologist evaluated, no further medication change or imaging during hospital stay advised
#Heart murmur
known to patient and already followed by outpatient physician
#Macrocytosis
B12/folate WNL
monitor as outpatient
might need hematology eval if persistent - will refer to PCP for that
DVT ppx SCDs
DNR/DNI - as discussed in detils ls with patient with the presence of and daughter
I have spent at least 52min reviewing chart, test results, communication with family and providing direct patient care
Anticipated Discharge: Within 24 hours
Subjective/Interval History
-
Date of Service: March 17, 2025
Objective Data
-
Vital Signs:
Vital Signs
Temp Pulse Resp BP Pulse Ox
97.7 F 85 16 132/75 94
03/17/25 07:00 03/17/25 07:00 03/17/25 07:00 03/17/25 07:00 03/17/25 07:00
I&O
03/16/25 03/17/25 03/18/25
06:59 06:59 06:59
Intake Total 270 / 270 2059 / 2059
Output Total 1350 / 1350 2300 / 2300
Balance -1080 / -1080 -240 / -240
Review of Systems
-
History Source: Patient
All other systems: Reviewed and negative
Physical Exam
-
General: No Apparent Distress
HEENT: Normocephalic
GI: Soft
Genito-urinary: Bloody Urine and Rios
Neuro: Awake, Alert, Oriented and AO x 3
--- NOTE | 2025-03-17 11:30 | PTCARENOTE ---
11 am Noted anderson draining bloody urine. Pt denies discomfort. DR. Quintana notified and ordered to irrigate anderson.
Explain to pt and pt's at bedside. Irrigated Anderson with 60 ml of saline, anderson irrigated easily. Noted saline drained back with small blood clot, continue to monitor pt closely.
--- NOTE | 2025-03-17 12:22 | W.PN.URO.CBU ---
Today's Communication / Plan
-
home when stable with anderson
Assessment / Plan
-
treast enerococcus uti recurrent urinary retention uti placed anderson discussed with has urologist will follow dr colon
Diagnosis
-
Date of Service: March 17, 2025
-
Patient Diagnosis:
Post Op Day:
Patient Diagnosis:
urinary retention difficut anderson uti
Post Op Day:
Subjective
-
feels well
Objective
-
Vital Signs
Temp Pulse Resp BP Pulse Ox
97.7 F 85 16 132/75 94
03/17/25 07:00 03/17/25 07:00 03/17/25 07:00 03/17/25 07:00 03/17/25 07:00
Intake and Output
03/16/25 03/17/25 03/18/25
06:59 06:59 06:59
Intake Total 270 / 270 2059
Output Total 1350 / 1350 2300 / 2300
Balance -1080 / -1080 -240 / -240
Intake:
Oral fluids 270 / 270 2059
Output:
Urine, Anderson 1999 / 1999
Urine, Voided 350 / 350 300 / 300
Straight cath output 1000 / 1000
Other:
How many times incontinent 2 1
MODERATE amount urine
How many times incontinent 1
SATURATED amount urine
Laboratory Results
03/14/25 06:32
03/14/25 07:21
Review of Systems
-
: Difficulty Voiding
Physical Exam
-
General - well developed, well nourished, no acute distress
Chest - clear bilaterally
Abdomen - soft, non-tender, positive bowel sounds, no CVAT, no incisional pain or distention
Genitalia - normal
Rectal - normal
Skin - warm & dry with no rash
Neuro - AOx3, no motor deficits
Extremities - no clubbing, no cyanosis, no edema
Incision - clean, dry
Dressing - clean, dry, intact
Counseling
-
home with anderson when hositalist agree
[2025-03-17] MEDS: DUPHALAC/CHRONULAC 10 GRAMS PO (13:19)
[2025-03-17] MEDS: SENOKOT-S 1 TABLET PO (13:19)
--- NOTE | 2025-03-17 13:39 | W.PN.UPDATE ---
Update Note
Progress Note Update
Still significant mount of blood in anderson. RN for irrigations - had some clot. To be repeated 16-8h. stop heparin. follow in AM CBC and urine. If worsening - CBI and urology to re-call
[2025-03-17 15:00] VITALS: BP 126/67
[2025-03-17] MEDS: LIPITOR 10 MG PO (21:25)
[2025-03-17] MEDS: TEGRETOL XR (EXTENDED RELEASE) 200 MG PO (21:25)
[2025-03-17] MEDS: XALATAN OPHTHALMIC SOLUTION 1 DROP BOTH EYES (21:25)
[2025-03-17 23:33] VITALS: BP 157/85
[2025-03-18] MEDS: AMOXIL 500 MG PO (03:02)
[2025-03-18 08:00] VITALS: BP 156/81
[2025-03-18] MEDS: COZAAR 25 MG PO (08:12)
[2025-03-18] MEDS: OSCAL CAL 500 500 MG PO (08:13)
[2025-03-18] MEDS: TEGRETOL XR (EXTENDED RELEASE) 400 MG PO ×2 (08:13→21:21)
[2025-03-18] MEDS: SINEMET 25-100 2 TABLET PO ×3 (08:13→21:21)
[2025-03-18] MEDS: CYMBALTA DELAYED RELEASE 40 MG PO (08:13)
[2025-03-18] MEDS: ALPHAGAN P 0.15% EYE DROPS 1 DROP BOTH EYES ×2 (08:16→19:57)
[2025-03-18] MEDS: NON-FORMULARY ITEM 25 MG PO ×2 (08:16→15:16)
[2025-03-18] MEDS: PROZAC 20 MG PO (08:17)
[2025-03-18] MEDS: PROSCAR 5 MG PO (08:18)
[2025-03-18 09:41] LABS: Hematocrit 36.9 % (39.0-52.0); Hemoglobin 12.8 g/dL (13.0-18.0); Mean Corp Hgb Conc. 34.7 g/dL (33.0-37.0); Mean Corpuscular Volume 92.5 fL (80.0-94.0); Nucleated Red Blood Cells % 0 % (-); Platelet Count 174 10^3/uL (130-400); Red Cell Dist. Width 13.8 % (11.5-14.5)
[2025-03-18] MEDS: DUPHALAC/CHRONULAC 10 GRAMS PO (09:43)
[2025-03-18] MEDS: MIRALAX 17 GRAMS PO (09:44)
[2025-03-18] MEDS: VIBRAMYCIN 50 MG PO ×2 (11:03→19:59)
[2025-03-18] MEDS: AUGMENTIN 875 MG/125 MG 1 TABLET PO ×2 (11:04→19:59)
[2025-03-18] MEDS: DULCOLAX 10 MG RECTAL (11:06)
--- NOTE | 2025-03-18 11:37 | W.PN.HOSP.TC ---
Today's Communication/Plan
-
keep anderson
Urology to follow
follow CBC
Assessment / Plan
Assessment / Plan
79yo M with PMHx of Parkinsons, orthostatic hypotension, OP, glaucoma, HLD, urinary retention previously 2 weeks with Anderson removed 4 days ago came with urinary frequency and burning during urination. Also few falls with most recent onto his back
due to poor balance. Patient had balance problems for long time now.
A/P:
#weakness in b/l LE on standing , described as an absence of the balance and legs giving out when attempts to walk.
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
without focal neurological deficit on exam
No new/worsening back pain
PT/OT
Can be 2/2 UTI - treat
TSH WNL, Cortisol 14.8 - no direct over insufficiency suspected with preserved strength in upper extremities and ability to hold his weight on both legs
XR lumbar spine w/o acute Fx
#Traumatic Recent displaced L 7-8-9th ribs Fx
#traumatic Non-displaced L 5-6th rib Fx
#Old traumatic Fx right lateral 9th, 10th, and 11th ribs
#Large bruise on R scapulae
pain mgmt
#UTI with Hx of urinary retention 2/2 BPH
#Traumatic hematuria
Hold heparin, follow CBC, discussed with Urology on 03/18/25 due to reocurrence of hematuria. Advised to keep anderson in without additional imaging
Planned for urodynamic studies as outpatient in [facility] - advised to keep that appt
US kidney and bladder
Ucx with ampicillin-sensitive E.faecalis
Anderson reinserted by Urology on 03/16/25 - follow up with established outpatient urologist upon d/c
#cough with concern for TRUPTI CAP
cough started on admission, but inital XR neg for pneumonia
On 03/18/25: questionable opacity within the left upper lobe which could represent pneumonia
switched to Augmentin/Doxy
#Delirium 2/2 Parkinson and sundowning
nightly
Unfortunately pulled on Anderson causing traumatic hematuria
with prolonged QTc - not candidate for antipsychotics
Concern for rebound delirium with BZD
advised frequent reorientations
#Frequent falls with chronic ambulatory deficiency due to balance problems and orthostatic hypotension
As per family: midodrine PRN for SBP<150 mmHgb Rx by PCP
PT/OT
#Parkinson
#Chronic constipation
#Anxiety d/o
#HLD
#Glaucoma
cont home meds
Neurologist evaluated, no further medication change or imaging during hospital stay advised
#Heart murmur
known to patient and already followed by outpatient physician
#Macrocytosis
B12/folate WNL
monitor as outpatient
might need hematology eval if persistent - will refer to PCP for that
DVT ppx SCDs
DNR/DNI - as discussed in detils ls with patient with the presence of and daughter
I have spent at least 55min reviewing chart, test results, communication with family and providing direct patient care
Anticipated Discharge: > 48 hours
Subjective/Interval History
-
Date of Service: March 18, 2025
Objective Data
-
Labs:
Laboratory Results
03/18/25
08:10
WBC 7.7
Hgb 12.8 L
Hct 36.9 L
Plt Count 174
Vital Signs:
Vital Signs
Temp Pulse Resp BP Pulse Ox
97.5 F 103 18 156/81 95
03/18/25 08:00 03/18/25 08:00 03/18/25 08:00 03/18/25 08:00 03/18/25 08:00
I&O
03/17/25 03/18/25 03/19/25
06:59 06:59 06:59
Intake Total 2060 / 2060 1260 / 1260
Output Total 2300 / 2300 1750 / 1750
Balance -240 / -240 -490 / -490
Review of Systems
-
History Source: Patient
All other systems: Reviewed and negative
Abdomen/GI: Reports Abdominal Pain (no tenderness to touch though)
Physical Exam
-
General: No Apparent Distress
HEENT: Normocephalic
Cardiac: Regular Rhythm
GI: Soft, Nontender and Nondistended
Genito-urinary: Bloody Urine and Anderson
Skin: Warm
Neuro: Awake, Alert, Oriented and AO x 3
Psych: Calm
--- NOTE | 2025-03-18 12:09 | CM ---
CM reviewed chart, reviewed with Hospitalist, patient not stable for discharge today. Update to [facility]. CM will continue to follow for all discharge planning needs.
Plan; [facility] when stable
[facility]
Report: [phone] ext [phone]
--- NOTE | 2025-03-18 12:29 | W.PN.URO.CBU ---
Today's Communication / Plan
-
hand irrigate any clots if poor flow tiger text
Assessment / Plan
-
treast enerococcus uti recurrent urinary retention uti placed anderson discussed with has urologist will follow dr colon
Diagnosis
-
Date of Service: March 18, 2025
-
Patient Diagnosis:
Post Op Day:
Patient Diagnosis:
Post Op Day:
Patient Diagnosis:
urinary retention difficut anderson uti
Post Op Day:
Subjective
-
hematuria with anderson trauma some clots but draining
Objective
-
Vital Signs
Temp Pulse Resp BP Pulse Ox
97.5 F 103 18 156/81 95
03/18/25 08:00 03/18/25 08:00 03/18/25 08:00 03/18/25 08:00 03/18/25 08:00
Intake and Output
03/17/25 03/18/25 03/19/25
06:59 06:59 06:59
Intake Total 2059 1260 / 1260
Output Total 0 / 2300 1750 / 1750
Balance -240 / -240 -490 / -490
Intake:
Oral fluids 2059 1260 / 1260
Output:
Urine, Anderson 1999 1750 / 1750
Urine, Voided 300 / 300
Other:
How many times incontinent 1
MODERATE amount urine
How many times incontinent 1
SATURATED amount urine
Laboratory Results
03/18/25 08:10
03/14/25 07:21
Review of Systems
-
Abdomen/GI: Abdominal Pain
: Difficulty Voiding and Bleeding
Physical Exam
-
General - well developed, well nourished, no acute distress
Chest - clear bilaterally
Abdomen - soft, non-tender, positive bowel sounds, no CVAT, no incisional pain or distention
Genitalia - normal
Rectal - normal
Skin - warm & dry with no rash
Neuro - AOx3, no motor deficits
Extremities - no clubbing, no cyanosis, no edema
Incision - clean, dry
Dressing - clean, dry, intact
Care Review
Data Reviewed
Discussed with: Nursing and Family
[2025-03-18 12:30] VITALS: BP 127/64; PULSE 91; O2SAT 96
[2025-03-18 12:34] VITALS: BP 127/64; PULSE 91; O2SAT 95
[2025-03-18 16:00] VITALS: BP 130/77
[2025-03-18] MEDS: LIPITOR 10 MG PO (19:59)
[2025-03-18] MEDS: TEGRETOL XR (EXTENDED RELEASE) 200 MG PO (21:21)
[2025-03-18] MEDS: NON-FORMULARY ITEM 1 MG PO (21:22)
[2025-03-18] MEDS: XALATAN OPHTHALMIC SOLUTION 1 DROP BOTH EYES (21:22)
[2025-03-18 23:09] VITALS: BP 132/78
--- NOTE | 2025-03-19 06:40 | W.PN.URO.CBU ---
Today's Communication / Plan
-
treat enterococcus uti
has urologist --> will follow Dr Pinzon at [place]
Assessment / Plan
-
replaced Anderson is functioning
Diagnosis
-
Date of Service: March 19, 2025
-
Patient Diagnosis:
urinary retention; difficult anderson; uti
Objective
-
Vital Signs
Temp Pulse Resp BP Pulse Ox
97.9 F 90 18 132/78 95
03/18/25 23:09 03/18/25 23:09 03/18/25 23:09 03/18/25 23:09 03/18/25 23:09
Intake and Output
03/17/25 03/18/25 03/19/25
06:59 06:59 06:59
Intake Total 2059 1260 / 1260 1680 / 1680
Output Total 2300 / 2300 1750 / 1750 1949 / 1949
Balance -240 / -240 -490 / -490 -270 / -270
Intake:
Oral fluids 2059 1260 / 1260 1680 / 1680
Output:
Urine, Anderson 1999 1750 / 1750 1949 / 1949
Urine, Voided 300 / 300
Other:
How many times incontinent 1
MODERATE amount urine
How many times incontinent 1
SATURATED amount urine
Urine Culture Final 03/16/25-1019
CC: Greater than 100,000 CFU/ML Enterococcus faecalis
Organism 1 Enterococcus faecalis
1. Enterococcus faecalis
M.I.C. RX
--------- ---
Ampicillin <=2 S
Gentamicin Synergy Screen <=500 S
Susceptible result indicates synergy is likely with a cell
wall active agent that is also susceptible
(e.g.ampicillin,penicillin,vancomycin)
Levofloxacin <=1 S
Nitrofurantoin-Urine Only <=32 S
Tetracycline <=4 S
Vancomycin 2 S
Physical Exam
-
General - well developed, well nourished, no acute distress
Chest - clear bilaterally
Abdomen - soft, non-tender, positive bowel sounds, no CVAT, no incisional pain or distention
Genitalia - normal
Rectal - normal
Skin - warm & dry with no rash
Neuro - AOx3, no motor deficits
Extremities - no clubbing, no cyanosis, no edema
Incision - clean, dry
Dressing - clean, dry, intact
[2025-03-19 07:00] VITALS: BP 129/74
[2025-03-19 08:59] LABS: Hematocrit 37.5 % (39.0-52.0); Hemoglobin 13.2 g/dL (13.0-18.0); Mean Corp Hgb Conc. 35.2 g/dL (33.0-37.0); Mean Corpuscular Volume 91.5 fL (80.0-94.0); Nucleated Red Blood Cells % 0 % (-); Platelet Count 188 10^3/uL (130-400); Red Cell Dist. Width 14.0 % (11.5-14.5)
[2025-03-19] MEDS: TEGRETOL XR (EXTENDED RELEASE) 400 MG PO ×2 (09:00→22:43)
[2025-03-19] MEDS: PROZAC 20 MG PO (09:00)
[2025-03-19] MEDS: CYMBALTA DELAYED RELEASE 40 MG PO (09:00)
[2025-03-19] MEDS: VIBRAMYCIN 50 MG PO ×2 (09:00→20:03)
[2025-03-19] MEDS: COZAAR 25 MG PO (09:00)
[2025-03-19] MEDS: NON-FORMULARY ITEM 25 MG PO ×3 (09:00→22:43)
[2025-03-19] MEDS: SINEMET 25-100 2 TABLET PO ×3 (09:00→22:42)
[2025-03-19] MEDS: PROSCAR 5 MG PO (09:00)
[2025-03-19] MEDS: ALPHAGAN P 0.15% EYE DROPS 1 DROP BOTH EYES ×2 (09:00→20:00)
[2025-03-19] MEDS: AUGMENTIN 875 MG/125 MG 1 TABLET PO ×2 (09:00→20:02)
[2025-03-19] MEDS: OSCAL CAL 500 500 MG PO (09:00)
[2025-03-19 09:25] LABS: ALT (SGPT) < 10 U/L (0-50); AST (SGOT) 21 U/L (17-59); Albumin 3.9 g/dl (3.5-5.0); Alkaline Phosphatase 93 U/L (38-126); Blood Urea Nitrogen 13 mg/dl (9-20); Calcium 8.8 mg/dl (8.4-10.2); Carbon Dioxide 24 mmol/L (22-30); Chloride 102 mmol/L (98-107); Estimated Creatinine Clearance 112 ml/min; Glucose 109 mg/dl (70-99); Potassium 4.1 mmol/L (3.5-5.1); Sodium 134 mmol/L (135-145); Total Protein 6.2 g/dl (6.3-8.2); eGFR > 60.00
--- NOTE | 2025-03-19 12:38 | W.PN.HOSP.TC ---
Today's Communication/Plan
-
anderson still with bloody urine - discussed with Urology, no need for additional intervention while Anderson is draining
No tenderness in abd
Assessment / Plan
Assessment / Plan
79yo M with PMHx of Parkinsons, orthostatic hypotension, OP, glaucoma, HLD, urinary retention previously 2 weeks with Anderson removed 4 days ago came with urinary frequency and burning during urination. Also few falls with most recent onto his back
due to poor balance. Patient had balance problems for long time now.
A/P:
#weakness in b/l LE on standing , described as an absence of the balance and legs giving out when attempts to walk.
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
without focal neurological deficit on exam
No new/worsening back pain
PT/OT
Can be 2/2 UTI - treat
TSH WNL, Cortisol 14.8 - no direct over insufficiency suspected with preserved strength in upper extremities and ability to hold his weight on both legs
XR lumbar spine w/o acute Fx
#Traumatic Recent displaced L 7-8-9th ribs Fx
#traumatic Non-displaced L 5-6th rib Fx
#Old traumatic Fx right lateral 9th, 10th, and 11th ribs
#Large bruise on R scapulae
pain mgmt
#UTI with Hx of urinary retention 2/2 BPH
#Traumatic hematuria
Hold heparin, follow CBC, discussed with Urology on 03/18/25 due to reocurrence of hematuria. Advised to keep anderson in without additional imaging
Planned for urodynamic studies as outpatient in [facility] - advised to keep that appt
US kidney and bladder
Ucx with ampicillin-sensitive E.faecalis
Anderson reinserted by Urology on 03/16/25 - follow up with established outpatient urologist upon d/c
#cough with concern for TRUPTI CAP
cough started on admission, but inital XR neg for pneumonia
On 03/18/25: questionable opacity within the left upper lobe which could represent pneumonia
switched to Augmentin/Doxy
#Delirium 2/2 Parkinson and sundowning
nightly
Unfortunately pulled on Anderson causing traumatic hematuria
with prolonged QTc - not candidate for antipsychotics
Concern for rebound delirium with BZD
advised frequent reorientations
#Frequent falls with chronic ambulatory deficiency due to balance problems and orthostatic hypotension
As per family: midodrine PRN for SBP<150 mmHgb Rx by PCP
PT/OT
#Parkinson
#Chronic constipation
#Anxiety d/o
#HLD
#Glaucoma
cont home meds
Neurologist evaluated, no further medication change or imaging during hospital stay advised
#Heart murmur
known to patient and already followed by outpatient physician
#Macrocytosis
B12/folate WNL
monitor as outpatient
might need hematology eval if persistent - will refer to PCP for that
DVT ppx SCDs
DNR/DNI - as discussed in detils ls with patient with the presence of and daughter
I have spent at least 55min reviewing chart, test results, communication with family and providing direct patient care
Anticipated Discharge: Within 24 hours
Subjective/Interval History
-
Date of Service: March 19, 2025
Objective Data
-
Labs:
Laboratory Results
03/19/25
08:17
WBC 8.0
Hgb 13.2
Hct 37.5 L
Plt Count 188
Sodium 134 L
Potassium 4.1
Chloride 102
Carbon Dioxide 24
BUN 13
Creatinine 0.6 L
Glucose 109 H
Calcium 8.8
Total Bilirubin 0.8
AST 21
ALT < 10
Alkaline Phosphatase 93
Vital Signs:
Vital Signs
Temp Pulse Resp BP Pulse Ox
97.9 F 88 18 129/74 96
03/19/25 07:00 03/19/25 07:00 03/19/25 07:00 03/19/25 07:00 03/19/25 07:00
I&O
03/18/25 03/19/25 03/20/25
06:59 06:59 06:59
Intake Total 1260 / 1260 1680 / 1680
Output Total 1750 / 1750 1950 / 1950
Balance -490 / -490 -270 / -270
Review of Systems
-
History Source: Patient
All other systems: Reviewed and negative
Physical Exam
-
General: No Apparent Distress
HEENT: Normocephalic
Cardiac: Regular Rhythm
GI: Soft
Genito-urinary: Bloody Urine and Anderson
Neuro: Awake, Alert and Oriented
Psych: Calm
[2025-03-19] MEDS: VISBIOME 2 CAP PO (14:28)
[2025-03-19 15:00] VITALS: BP 118/66
[2025-03-19] MEDS: LIPITOR 10 MG PO (22:42)
[2025-03-19] MEDS: TEGRETOL XR (EXTENDED RELEASE) 200 MG PO (22:42)
[2025-03-19] MEDS: XALATAN OPHTHALMIC SOLUTION 1 DROP BOTH EYES (22:44)
[2025-03-19 23:30] VITALS: BP 132/74
[2025-03-20 06:06] LABS: Hematocrit 35.4 % (39.0-52.0); Hemoglobin 12.3 g/dL (13.0-18.0)
[2025-03-20 06:37] LABS: Blood Urea Nitrogen 15 mg/dl (9-20); Calcium 8.8 mg/dl (8.4-10.2); Carbon Dioxide 25 mmol/L (22-30); Chloride 101 mmol/L (98-107); Estimated Creatinine Clearance 112 ml/min; Glucose 107 mg/dl (70-99); Potassium 4.0 mmol/L (3.5-5.1); Sodium 131 mmol/L (135-145); eGFR > 60.00
[2025-03-20 07:45] VITALS: BP 125/70
--- NOTE | 2025-03-20 07:50 | PTCARENOTE ---
07:40 Noted pt's bed wet, bloody urine leaked around anderson catheter. Pt had about 200 ml of bloody urine in anderson bag. Flush catheter with saline and noted small blood clots mixed in urine. Dr. Lawson aware and here to see pt. Noted ordered for
Cat scan (urography). Pt kept NPO. Explain to pt.
[2025-03-20] MEDS: COZAAR 25 MG PO (09:00)
[2025-03-20] MEDS: NON-FORMULARY ITEM 25 MG PO ×3 (09:00→21:12)
[2025-03-20] MEDS: AUGMENTIN 875 MG/125 MG 1 TABLET PO ×2 (09:00→19:49)
[2025-03-20] MEDS: SINEMET 25-100 2 TABLET PO ×3 (09:00→21:11)
[2025-03-20] MEDS: ALPHAGAN P 0.15% EYE DROPS 1 DROP BOTH EYES ×2 (09:00→19:49)
[2025-03-20] MEDS: CYMBALTA DELAYED RELEASE 40 MG PO (09:00)
[2025-03-20] MEDS: VIBRAMYCIN 50 MG PO ×2 (09:00→19:49)
[2025-03-20] MEDS: OSCAL CAL 500 500 MG PO (09:00)
[2025-03-20] MEDS: PROZAC 20 MG PO (09:00)
[2025-03-20] MEDS: PROSCAR 5 MG PO (09:00)
[2025-03-20] MEDS: TEGRETOL XR (EXTENDED RELEASE) 400 MG PO ×2 (09:00→21:12)
[2025-03-20] MEDS: VISBIOME 2 CAP PO (09:00)
--- NOTE | 2025-03-20 11:16 | W.PN.HOSP.TC ---
Today's Communication/Plan
-
follow labs
CT urogram
Urology to follow
cont Abx
Assessment / Plan
Assessment / Plan
79yo M with PMHx of Parkinsons, orthostatic hypotension, OP, glaucoma, HLD, urinary retention previously 2 weeks with Rios removed 4 days ago came with urinary frequency and burning during urination. Also few falls with most recent onto his back
due to poor balance. Patient had balance problems for long time now.
A/P:
#UTI with Hx of urinary retention 2/2 BPH
#Traumatic hematuria
Hold heparin, follow CBC, discussed with Urology on 03/18/25 due to reocurrence of hematuria, that was persisted till 03/20/25 without improvement, so reasonable for CT urogram.
Planned for urodynamic studies as outpatient in [facility] - advised to keep that appt
US kidney and bladder: Unremarkable sonographic appearance of the kidneys without hydronephrosis or nephrolithiasis on 03/14/25
Ucx with ampicillin-sensitive E.faecalis
Rios reinserted by Urology on 03/16/25 - follow up with established outpatient urologist upon d/c
#weakness in b/l LE on standing , described as an absence of the balance and legs giving out when attempts to walk.
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
without focal neurological deficit on exam
No new/worsening back pain
PT/OT
Can be 2/2 UTI - treat
TSH WNL, Cortisol 14.8 - no direct over insufficiency suspected with preserved strength in upper extremities and ability to hold his weight on both legs
XR lumbar spine w/o acute Fx
#Traumatic Recent displaced L 7-8-9th ribs Fx
#traumatic Non-displaced L 5-6th rib Fx
#Old traumatic Fx right lateral 9th, 10th, and 11th ribs
#Large bruise on R scapulae
pain mgmt
#cough with concern for TRUPTI CAP
cough started on admission, but inital XR neg for pneumonia
On 03/18/25: questionable opacity within the left upper lobe which could represent pneumonia
switched to Augmentin/Doxy
#Delirium 2/2 Parkinson and sunding
nightly
Unfortunately pulled on Rios causing traumatic hematuria
with prolonged QTc - not candidate for antipsychotics
Concern for rebound delirium with BZD
advised frequent reorientations
#Frequent falls with chronic ambulatory deficiency due to balance problems and orthostatic hypotension
As per family: midodrine PRN for SBP<150 mmHgb Rx by PCP
PT/OT
#Parkinson
#Chronic constipation
#Anxiety d/o
#HLD
#Glaucoma
cont home meds
Neurologist evaluated, no further medication change or imaging during hospital stay advised
#Heart murmur
known to patient and already followed by outpatient physician
#Macrocytosis
B12/folate WNL
monitor as outpatient
might need hematology eval if persistent - will refer to PCP for that
DVT ppx SCDs
DNR/DNI - as discussed in detils ls with patient with the presence of and daughter
I have spent at least 51min reviewing chart, test results, communication with family and providing direct patient care
Anticipated Discharge: > 48 hours
Subjective/Interval History
-
Date of Service: March 20, 2025
Objective Data
-
Labs:
Laboratory Results
03/20/25
05:33
Hgb 12.3 L
Hct 35.4 L
Sodium 131 L
Potassium 4.0
Chloride 101
Carbon Dioxide 25
BUN 15
Creatinine 0.5 L
Glucose 107 H
Calcium 8.8
Vital Signs:
Vital Signs
Temp Pulse Resp BP Pulse Ox
96.8 F L 81 16 125/70 96
03/20/25 07:45 03/20/25 07:45 03/20/25 07:45 03/20/25 07:45 03/20/25 07:45
I&O
03/19/25 03/20/25 03/21/25
06:59 06:59 06:59
Intake Total 1680 / 1680 540 / 540
Output Total 1950 / 1949 1450 / 1450
Balance -270 / -270 -910 / -910
Review of Systems
-
History Source: Patient
All other systems: Reviewed and negative
Physical Exam
-
General: Comfortable
HEENT: Normocephalic
Cardiac: Regular Rhythm
GI: Soft, Nondistended and Tender (suprapubic)
Genito-urinary: Bloody Urine and Rios
Musculoskeletal: No Clubbing, No Cyanosis and No Edema
Psych: Calm
--- NOTE | 2025-03-20 12:22 | W.PN.URO.CBU ---
Today's Communication / Plan
-
continue Anderson
hand-irrigate prn
Assessment / Plan
-
replaced Anderson is functioning
Bladder clots are lysing
Diagnosis
-
Date of Service: March 20, 2025
-
Patient Diagnosis:
NGB + PRostate enlargement -->urinary retention
difficult anderson;
uti -- Enterococcal Prostatitis
Gross Hematuria due to BPH + UTI + Anderson trauma -- CT scan shows a modest volume of remaining clots
Subjective
-
comfortable currently
Objective
-
Vital Signs
Temp Pulse Resp BP Pulse Ox
96.8 F L 81 16 125/70 96
03/20/25 07:45 03/20/25 07:45 03/20/25 07:45 03/20/25 07:45 03/20/25 07:45
Intake and Output
03/19/25 03/20/25 03/21/25
06:59 06:59 06:59
Intake Total 1680 / 1680 540 / 540
Output Total 1949 / 1949 1450 / 1450
Balance -270 / -270 -910 / -910
Intake:
Oral fluids 1680 / 1680 540 / 540
Output:
Urine, Anderson 1949 1450 / 1450
Laboratory Results
03/20/25 05:33
03/20/25 05:33
CT -- reviewed
Bladder Scan: negligible
Physical Exam
-
General - well developed, well nourished, no acute distress
Abdomen - soft, non-tender, positive bowel sounds, no distention
Genitalia - 16 Fr Anderson draining medium red with occasional small, dark clots
Care Review
Data Reviewed
Discussed with: Nursing and Family ( and daughter at bedside -- 20 minute discussion: review of CT, etiology of hematuria and UTI; anticipated course with possible negative deviations)
[2025-03-20 15:00] VITALS: BP 117/63
[2025-03-20 16:28] VITALS: BP 101/50; BP 116/54
[2025-03-20] MEDS: TEGRETOL XR (EXTENDED RELEASE) 200 MG PO (21:11)
[2025-03-20] MEDS: LIPITOR 10 MG PO (21:12)
[2025-03-20] MEDS: XALATAN OPHTHALMIC SOLUTION 1 DROP BOTH EYES (21:13)
[2025-03-20 23:09] VITALS: BP 119/63
[2025-03-21 07:06] VITALS: BP 133/70
[2025-03-21 08:40] LABS: Hematocrit 36.4 % (39.0-52.0); Hemoglobin 12.6 g/dL (13.0-18.0); Mean Corp Hgb Conc. 34.6 g/dL (33.0-37.0); Mean Corpuscular Volume 92.9 fL (80.0-94.0); Nucleated Red Blood Cells % 0 % (-); Platelet Count 217 10^3/uL (130-400); Red Cell Dist. Width 14.2 % (11.5-14.5)
[2025-03-21] MEDS: PROSCAR 5 MG PO (08:49)
[2025-03-21] MEDS: AUGMENTIN 875 MG/125 MG 1 TABLET PO ×2 (08:49→20:12)
[2025-03-21] MEDS: PROZAC 20 MG PO (08:49)
[2025-03-21] MEDS: SINEMET 25-100 2 TABLET PO ×3 (08:49→21:08)
[2025-03-21] MEDS: COZAAR 25 MG PO (08:49)
[2025-03-21] MEDS: VIBRAMYCIN 50 MG PO ×2 (08:49→20:12)
[2025-03-21] MEDS: OSCAL CAL 500 500 MG PO (08:49)
[2025-03-21] MEDS: TEGRETOL XR (EXTENDED RELEASE) 400 MG PO ×2 (08:49→21:08)
[2025-03-21] MEDS: VISBIOME 2 CAP PO (08:50)
[2025-03-21] MEDS: CYMBALTA DELAYED RELEASE 40 MG PO (08:50)
[2025-03-21] MEDS: ALPHAGAN P 0.15% EYE DROPS 1 DROP BOTH EYES ×2 (08:52→20:12)
[2025-03-21] MEDS: NON-FORMULARY ITEM 25 MG PO ×3 (08:52→21:09)
[2025-03-21 09:09] LABS: Blood Urea Nitrogen 13 mg/dl (9-20); Calcium 8.7 mg/dl (8.4-10.2); Carbon Dioxide 25 mmol/L (22-30); Chloride 100 mmol/L (98-107); Estimated Creatinine Clearance 112 ml/min; Glucose 93 mg/dl (70-99); Potassium 4.1 mmol/L (3.5-5.1); Sodium 132 mmol/L (135-145); eGFR > 60.00
--- NOTE | 2025-03-21 09:17 | W.PN.URO.CBU ---
Today's Communication / Plan
-
continue Anderson/discharge with Anderson
pt to f/u with Dr Pinzon, his established urologist
Assessment / Plan
-
replaced Anderson is functioning
Bladder clots are lysing
Diagnosis
-
Date of Service: March 21, 2025
-
Patient Diagnosis:
NGB + PRostate enlargement -->urinary retention
difficult anderson;
uti -- Enterococcal Prostatitis
Gross Hematuria due to BPH + UTI + Anderson trauma -- CT scan shows a modest volume of remaining clots
Subjective
-
comfortable
Objective
-
Vital Signs
Temp Pulse Resp BP Pulse Ox
97.7 F 85 16 133/70 94
03/21/25 07:06 03/21/25 07:06 03/21/25 07:06 03/21/25 07:06 03/21/25 07:06
Intake and Output
03/20/25 03/21/25 03/22/25
06:59 06:59 06:59
Intake Total 540 / 540 280 / 280
Output Total 1450 / 1450 1900 / 1900
Balance -910 / -910 -1620 / -1620
Intake:
Oral fluids 540 / 540 280 / 280
Output:
Urine, Anderson 1450 / 1450 1900 / 1900
Laboratory Results
03/21/25 07:12
03/21/25 07:12
Physical Exam
-
General -no acute distress
Genitalia - Anderson draining lysing clots
Care Review
Data Reviewed
Discussed with: Family ( , at bedside)
--- NOTE | 2025-03-21 09:55 | W.PN.HOSP.TC ---
Today's Communication/Plan
-
Anderson had to be irrigated overnight for clots, now draining
Hgb stable
watch for obstruction of outflow, irrigate as needed. If improveing - plan to d/c in AM
Assessment / Plan
Assessment / Plan
79yo M with PMHx of Parkinsons, orthostatic hypotension, OP, glaucoma, HLD, urinary retention previously 2 weeks with Anderson removed 4 days ago came with urinary frequency and burning during urination. Also few falls with most recent onto his back
due to poor balance. Patient had balance problems for long time now. Developed traumatic hematuria after anderson placement for re-occurence of urinary retetnion. ALso found UTI and signs of penumonia that are improving on Abx
A/P:
#UTI with Hx of urinary retention 2/2 BPH
#Traumatic hematuria
Hold heparin, follow CBC, discussed with Urology on 03/18/25 due to reoccurrence of hematuria, that was persisted till 03/20/25 without improvement, CT urogram with blood product in bladder
Irrigate as needed to ensure Anderson drain
Planned for urodynamic studies as outpatient in [facility] - advised to keep that appt
US kidney and bladder: Unremarkable sonographic appearance of the kidneys without hydronephrosis or nephrolithiasis on 03/14/25
Ucx with ampicillin-sensitive E.faecalis
Anderson reinserted by Urology on 03/16/25 - follow up with established outpatient urologist upon d/c
#weakness in b/l LE on standing , described as an absence of the balance and legs giving out when attempts to walk.
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
without focal neurological deficit on exam
No new/worsening back pain
PT/OT
Can be 2/2 UTI - treat
TSH WNL, Cortisol 14.8 - no direct over insufficiency suspected with preserved strength in upper extremities and ability to hold his weight on both legs
XR lumbar spine w/o acute Fx
#Traumatic Recent displaced L 7-8-9th ribs Fx
#traumatic Non-displaced L 5-6th rib Fx
#Old traumatic Fx right lateral 9th, 10th, and 11th ribs
#Large bruise on R scapulae
pain mgmt
#cough with concern for TRUPTI CAP
cough started on admission, but inital XR neg for pneumonia
On 03/18/25: questionable opacity within the left upper lobe which could represent pneumonia
switched to Augmentin/Doxy
#Delirium 2/2 Parkinson and sundowning
nightly
Unfortunately pulled on Anderson causing traumatic hematuria
with prolonged QTc - not candidate for antipsychotics
Concern for rebound delirium with BZD
advised frequent reorientations
#Frequent falls with chronic ambulatory deficiency due to balance problems and orthostatic hypotension
As per family: midodrine PRN for SBP<150 mmHgb Rx by PCP
PT/OT
#Parkinson
#Chronic constipation
#Anxiety d/o
#HLD
#Glaucoma
cont home meds
Neurologist evaluated, no further medication change or imaging during hospital stay advised
#Heart murmur
known to patient and already followed by outpatient physician
#Macrocytosis
B12/folate WNL
monitor as outpatient
might need hematology eval if persistent - will refer to PCP for that
DVT ppx SCDs
DNR/DNI - as discussed in detils ls with patient with the presence of and daughter
I have spent at least 36min reviewing chart, test results, communication with family and providing direct patient care
Anticipated Discharge: 24 - 48 hours
Subjective/Interval History
-
Date of Service: March 21, 2025
Objective Data
-
Labs:
Laboratory Results
03/21/25
07:12
WBC 7.0
Hgb 12.6 L
Hct 36.4 L
Plt Count 217
Sodium 132 L
Potassium 4.1
Chloride 100
Carbon Dioxide 25
BUN 13
Creatinine 0.6 L
Glucose 93
Calcium 8.7
Vital Signs:
Vital Signs
Temp Pulse Resp BP Pulse Ox
97.7 F 85 16 133/70 94
03/21/25 07:06 03/21/25 07:06 03/21/25 07:06 03/21/25 07:06 03/21/25 07:06
I&O
03/20/25 03/21/25 03/22/25
06:59 06:59 06:59
Intake Total 540 / 540 280 / 280
Output Total 1450 / 1450 1900 / 1900
Balance -910 / -910 -1620 / -1620
Review of Systems
-
History Source: Patient
All other systems: Reviewed and negative
Physical Exam
-
General: Comfortable
HEENT: Normocephalic
Respiratory: Clear to Auscultation
GI: Soft, Nontender and Nondistended
Genito-urinary: Bloody Urine and Anderson
Musculoskeletal: No Clubbing, No Cyanosis and No Edema
Neuro: Awake, Alert, Oriented and AO x 3
--- NOTE | 2025-03-21 13:16 | CM ---
CM reviewed chart, patient seen bedside with and daughter, discussed if patient stable for discharge tomorrow, [facility] can offer a bed. Patient will require Covid test prior to d/c, will require ambulance transport. Clinical updates sent
via [facility]. CM will continue to follow for all discharge planning needs.
Plan; [facility], can offer bed tomorrow if stable for d/c
[2025-03-21 15:03] VITALS: BP 111/55
[2025-03-21 16:02] VITALS: BP 122/59; PULSE 89
[2025-03-21] MEDS: LIPITOR 10 MG PO (20:13)
[2025-03-21] MEDS: XALATAN OPHTHALMIC SOLUTION 1 DROP BOTH EYES (21:08)
[2025-03-21] MEDS: TEGRETOL XR (EXTENDED RELEASE) 200 MG PO (21:08)
--- NOTE | 2025-03-21 21:16 | PTCARENOTE ---
Pt received from ED to [id number]. Pt oriented to room and call maynard.
[2025-03-21 23:32] VITALS: BP 130/59
[2025-03-22 06:43] LABS: Hematocrit 34.0 % (39.0-52.0); Hemoglobin 11.9 g/dL (13.0-18.0)
[2025-03-22 07:00] VITALS: BP 114/60
[2025-03-22] MEDS: CYMBALTA DELAYED RELEASE 40 MG PO (08:01)
[2025-03-22] MEDS: ALPHAGAN P 0.15% EYE DROPS 1 DROP BOTH EYES (08:01)
[2025-03-22] MEDS: TEGRETOL XR (EXTENDED RELEASE) 400 MG PO (08:02)
[2025-03-22] MEDS: SINEMET 25-100 2 TABLET PO (08:02)
[2025-03-22] MEDS: AUGMENTIN 875 MG/125 MG 1 TABLET PO (08:02)
[2025-03-22] MEDS: VIBRAMYCIN 50 MG PO (08:03)
[2025-03-22] MEDS: VISBIOME 2 CAP PO (08:03)
[2025-03-22] MEDS: COZAAR 25 MG PO (08:04)
[2025-03-22] MEDS: PROSCAR 5 MG PO (08:04)
[2025-03-22] MEDS: PROZAC 20 MG PO (08:04)
[2025-03-22] MEDS: OSCAL CAL 500 500 MG PO (08:04)
[2025-03-22] MEDS: NON-FORMULARY ITEM 25 MG PO (08:04)
--- NOTE | 2025-03-22 09:22 | W.PN.HOSP.TC ---
Today's Communication/Plan
-
dc
Assessment / Plan
Assessment / Plan
79yo M with PMHx of Parkinsons, orthostatic hypotension, OP, glaucoma, HLD, urinary retention previously 2 weeks with Anderson removed 4 days ago came with urinary frequency and burning during urination. Also few falls with most recent onto his back
due to poor balance. Patient had balance problems for long time now. Developed traumatic hematuria after anderson placement for re-occurence of urinary retetnion. ALso found UTI and signs of penumonia that are improving on Abx. Urine started to clear
up and since Anderson is daining - reasonable to continue monitoring in STR. Complete oral Abx for UTI and pneumonia and follow up with established Urologist - patient christiano has appointment. Medically stable for d/c
A/P:
#UTI with Hx of urinary retention 2/2 BPH
#Traumatic hematuria
Hold heparin, follow CBC, discussed with Urology on 03/18/25 due to reoccurrence of hematuria, that was persisted till 03/20/25 without improvement, CT urogram with blood product in bladder
Irrigate as needed to ensure Anderson drain
Planned for urodynamic studies as outpatient in [facility] - advised to keep that appt
US kidney and bladder: Unremarkable sonographic appearance of the kidneys without hydronephrosis or nephrolithiasis on 03/14/25
Ucx with ampicillin-sensitive E.faecalis
Anderson reinserted by Urology on 03/16/25 - follow up with established outpatient urologist upon d/c
#weakness in b/l LE on standing , described as an absence of the balance and legs giving out when attempts to walk.
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
without focal neurological deficit on exam
No new/worsening back pain
PT/OT
Can be 2/2 UTI - treat
TSH WNL, Cortisol 14.8 - no direct over insufficiency suspected with preserved strength in upper extremities and ability to hold his weight on both legs
XR lumbar spine w/o acute Fx
#Traumatic Recent displaced L 7-8-9th ribs Fx
#traumatic Non-displaced L 5-6th rib Fx
#Old traumatic Fx right lateral 9th, 10th, and 11th ribs
#Large bruise on R scapulae
pain mgmt
#cough with concern for TRUPTI CAP
cough started on admission, but inital XR neg for pneumonia
On 03/18/25: questionable opacity within the left upper lobe which could represent pneumonia
switched to Augmentin/Doxy
#Delirium 2/2 Parkinson and ing
nightly
Unfortunately pulled on Anderson causing traumatic hematuria
with prolonged QTc - not candidate for antipsychotics
Concern for rebound delirium with BZD
advised frequent reorientations
#Frequent falls with chronic ambulatory deficiency due to balance problems and orthostatic hypotension
As per family: midodrine PRN for SBP<150 mmHgb Rx by PCP
PT/OT
#Parkinson
#Chronic constipation
#Anxiety d/o
#HLD
#Glaucoma
cont home meds
Neurologist evaluated, no further medication change or imaging during hospital stay advised
#Heart murmur
known to patient and already followed by outpatient physician
#Macrocytosis
B12/folate WNL
monitor as outpatient
might need hematology eval if persistent - will refer to PCP for that
DVT ppx SCDs
DNR/DNI - as discussed in detils ls with patient with the presence of and daughter
I have spent at least 36min reviewing chart, test results, communication with family and providing direct patient care
Anticipated Discharge: Today
Subjective/Interval History
-
Date of Service: March 22, 2025
Objective Data
-
Labs:
Laboratory Results
03/22/25
06:08
Hgb 11.9 L
Hct 34.0 L
Vital Signs:
Vital Signs
Temp Pulse Resp BP Pulse Ox
97.4 F 84 20 114/60 99
03/22/25 07:00 03/22/25 07:00 03/22/25 07:00 03/22/25 07:00 03/22/25 07:00
I&O
03/21/25 03/22/25 03/23/25
06:59 06:59 06:59
Intake Total 280 / 280 1160 / 1160
Output Total 1900 / 1900 3200 / 3200
Balance -1620 / -1620 -2040 / -2040
Review of Systems
-
History Source: Patient
All other systems: Reviewed and negative
Musculoskeletal: Reports Other (R lower chest pain more pronounced when trying to reach with R arm)
Physical Exam
-
General: Comfortable
HEENT: Normocephalic
Respiratory: Clear to Auscultation
GI: Soft, Nontender and Nondistended
Genito-urinary: Clear Urine and Anderson
Musculoskeletal: No Clubbing, No Cyanosis and No Edema
--- NOTE | 2025-03-22 09:32 | W.DCSUMMARY ---
Discharge Summary
Discharge Data
Date of Admission: 03/14/25
Date of Discharge: 03/22/25
-
Pending Results: No
Hospital Course
79yo M with PMHx of Parkinsons, orthostatic hypotension, OP, glaucoma, HLD, urinary retention previously 2 weeks with Martinez removed 4 days ago came with urinary frequency and burning during urination. Also few falls with most recent onto his back
due to poor balance. Patient had balance problems for long time now. Developed traumatic hematuria after martinez placement for re-occurence of urinary retetnion. ALso found UTI and signs of penumonia that are improving on Abx. Urine started to clear
up and since Martinez is daining - reasonable to continue monitoring in STR. Complete oral Abx for UTI and pneumonia and follow up with established Urologist - patient alredy has appointment. Medically stable for d/c
I have spent at least 36min reviewing chart, test results, communication with family and providing direct patient care
Patient was managed for:
#UTI with Hx of urinary retention 2/2 BPH
#Traumatic hematuria
#weakness in b/l LE on standing , described as an absence of the balance and legs giving out when attempts to walk.
#Traumatic Recent displaced L 7-8-9th ribs Fx
#traumatic Non-displaced L 5-6th rib Fx
#Old traumatic Fx right lateral 9th, 10th, and 11th ribs
#Large bruise on R scapulae
#cough with concern for TRUPTI CAP
#Delirium 2/2 Parkinson and sundowning
#Frequent falls with chronic ambulatory deficiency due to balance problems and orthostatic hypotension
#Parkinson
#Chronic constipation
#Anxiety d/o
#HLD
#Glaucoma
#Heart murmur
#Macrocytosis
Discharge Plan
-
Patient Disposition: Retirement/SNF
Discharge Diagnosis/Procedures: UTI
Diet: Low Sodium
Activity: As tolerated and With Walker
Driving Restrictions: As prior to admission
Blood Work: repeat BMP and CBC in 7 days
Referrals:
Willie Pinzon, [Non-Admitting Privileges] - in two to four weeks
Referral Note: If persistent microcytosis - recommend Sausage Stringer eval
Miguel Aguilar MD [Family Provider, Internal Medicine]
Prescriptions:
New
Probiotic 3 billion cell capsule
3,000 mmu cells PO DAILY Qty: 30 0RF
doxycycline hyclate 100 mg capsule
100 mg PO Q12 Qty: 10 0RF
Lactobac/Bifidobac [Visbiome]
2 cap PO DAILY Qty: 60 0RF
amoxicillin-pot clavulanate 875-125 mg Tablet
1 tab PO Q12 Qty: 14 0RF
Continued
polyethylene glycol 3350 [Miralax] 17 gram Powder In Packet
17 g PO DAILY
alendronate 70 mg Tablet
70 mg PO MO
midodrine 5 mg Tablet
5 mg PO DAILYPRN PRN (Reason: if sbp <150)
travoprost 0.004 % Drops
1 drp BOTH EYES HS
acetaminophen [Tylenol Extra Strength] 500 mg Tablet
500 mg PO BID
calcium carbonate [Calcium 600] 600 mg calcium (1,500 mg) Tablet
600 mg PO DAILY
ascorbic acid (vitamin C) [Vitamin C] 500 mg Tablet
500 mg PO DAILY
simvastatin 20 mg Tablet
20 mg PO HS
fluoxetine 20 mg Tablet
20 mg PO DAILY
Rx Instructions:
until 04/08/25 then discontinue
losartan 25 mg Tablet
25 mg PO DAILY
carbidopa-levodopa 25-100 mg Tablet
2 tab PO TID
finasteride 5 mg Tablet
5 mg PO DAILY
brimonidine 0.15 % Drops
1 drp BOTH EYES BID
lactulose 10 gram/15 mL Solution
10 g PO DAILYPRN PRN (Reason: constipation)
cholecalciferol (vitamin D3) [Vitamin D3] 25 mcg (1,000 unit) Tablet
25 mcg PO DAILY
omega 0-box-qcb-fish oil [Fish Oil] 1,200 (144-216) mg Capsule
2 cap PO DAILY
coQ10 (ubiquinol) 200 mg Capsule
200 mg PO DAILY
duloxetine 40 mg Capsule,Delayed Release(Dr/Ec)
40 mg PO DAILY
Rx Instructions:
40mg daily until 04/08/25 then 60mg daily
carbamazepine [Tegretol XR] 200 mg Tablet Extended Release 12 Hr
400 mg PO DAILY
carbamazepine [Tegretol XR] 200 mg Tablet Extended Release 12 Hr
600 mg PO HS
carbidopa 25 mg Tablet
25 mg PO Q8H
therapeutic multivitamin Tablet
1 tab PO DAILY
Discharge Orders:
Discharge Patient (As Directed); Ordered 03/22/25
Ordered By: Ovidio Lawson
Discharge Date and Time
Print Language: DUTCH
[2025-03-22 09:57] LABS: COVID-19 Antigen Negative (Negative)
[2025-03-22] MEDS: MIRALAX 17 GRAMS PO (10:50)
[2025-03-22] MEDS: DUPHALAC/CHRONULAC 10 GRAMS PO (10:50)
--- NOTE | 2025-03-22 11:07 | CM ---
CM reviewed chart, patient seen bedside with and daughter, discussed discharge today to [facility]. Patient scheduled for 12:30 p.m. ambulance transport. IMM verbally reviewed, provided with copy, placed in chart. Covid test ordered- negative.
Updates to liaison at [facility] with transport time. CM will continue to follow for all discharge planning needs.
Plan; [facility], 12:30 p.m. ambulance transport
[facility]
Report: [phone]
== END 2025-03-22 13:09 | DRG 727 ==
LOC: 4 WEST ACU 11:26
PROVIDERS: Physician Assistant; ADMITTING PHYSICIAN Internal Medicine; CONSULT PHYSICIAN Psychiatry & Neurology Neurology; CONSULT PHYSICIAN Specialist; EMERGENCY PHYSICIAN Student in an Organized Health Care Education/Training Program; FAMILY PHYSICIAN Internal Medicine
DX: N41.9 Inflammatory disease of prostate, unspecified (principal); J18.9 Pneumonia, unspecified organism; F02.83 Dementia in other diseases classified elsewhere, unspecified severity, with mood disturbance; F02.84 Dementia in other diseases classified elsewhere, unspecified severity, with anxiety; F05 Delirium due to known physiological condition; T83.83XA Hemorrhage due to genitourinary prosthetic devices, implants and grafts, initial encounter; E78.00 Pure hypercholesterolemia, unspecified; G20.B1 Parkinson's disease with dyskinesia, without mention of fluctuations; Z66 Do not resuscitate; I95.1 Orthostatic hypotension; T83.021A Displacement of indwelling urethral catheter, initial encounter; N40.1 Benign prostatic hyperplasia with lower urinary tract symptoms; R33.8 Other retention of urine; R29.6 Repeated falls; K59.09 Other constipation; H40.9 Unspecified glaucoma; D75.89 Other specified diseases of blood and blood-forming organs; F32.A Depression, unspecified; B95.2 Enterococcus as the cause of diseases classified elsewhere; Y73.2 Prosthetic and other implants, materials and accessory gastroenterology and urology devices associated with adverse incidents; Z11.52 Encounter for screening for COVID-19; Z79.899 Other long term (current) drug therapy; Z79.83 Long term (current) use of bisphosphonates
CPT/HCPCS: 71046; 71110; 72100; 74178; 76775; 80048; 80053; 80076; 81003; 81015; 82533; 82607; 82746; 84132; 84443; 85014; 85018; 85025; 85027; 87077; 87086; 87186; 87811; 92610; 93005; 96374; 97110; 97116; 97163; 97167; 97530; 97535; 99285; Q9967

== ENCOUNTER 2025-06-30 02:09 | Inpatient (IN) | payer MEDICARE, OTHER, SELFPAY ==
[2025-06-29 22:03] VITALS: BP 148/72
[2025-06-29 22:07] VITALS: BP 148/72
[2025-06-29 22:33] LABS: Hematocrit 33.9 % (39.0-52.0); Hemoglobin 10.7 g/dL (13.0-18.0); Mean Corp Hgb Conc. 31.6 g/dL (33.0-37.0); Mean Corpuscular Volume 91.9 fL (80.0-94.0); Nucleated Red Blood Cells % 0.2 % (-); Platelet Count 164 10^3/uL (130-400); Red Cell Dist. Width 14.4 % (11.5-14.5)
[2025-06-29 22:44] VITALS: BMI 24.9
[2025-06-29 22:45] LABS: ALT (SGPT) < 10 U/L (0-50); AST (SGOT) 11 U/L (17-59); Albumin 4.2 g/dl (3.5-5.0); Alkaline Phosphatase 86 U/L (38-126); Blood Urea Nitrogen 17 mg/dl (9-20); Calcium 8.6 mg/dl (8.4-10.2); Carbon Dioxide 27 mmol/L (22-30); Chloride 97 mmol/L (98-107); Estimated Creatinine Clearance 95 ml/min; Glucose 112 mg/dl (70-99); Potassium 4.3 mmol/L (3.5-5.1); Sodium 127 mmol/L (135-145); Total Protein 7.0 g/dl (6.3-8.2); eGFR > 60.00
[2025-06-29 23:00] VITALS: BP 137/68
[2025-06-29 23:00] LABS: Urine Character Clear (Clear)
[2025-06-29 23:17] LABS: Urine Squamous Cell 0-2 /LPF (Few)
[2025-06-29 23:18] LABS: Urine White Cell 30-40 /HPF (0-5)
[2025-06-30] VITALS (8 sets, daily range): BP systolic 107–151; BP diastolic 48–92; PULSE 89–91; O2SAT 98; BMI 23.4
[2025-06-30] MEDS: NSS 500 IV (00:10)
[2025-06-30] MEDS: XANAX 0.25 MG PO (00:23)
[2025-06-30] MEDS: MAXIPIME 2000 MG IV ×3 (00:25→21:44)
--- NOTE | 2025-06-30 00:31 | ED.GENMED ---
History of Present Illness
<MEGHAN Lee Jr. Last Filed: 06/30/25 03:05>
General
Chief Complaint: Change in Mental Status
Source: patient and spouse
Exam Limitations: none, clinical condition and altered mental status
Time Seen by Provider: 06/29/25 23:05
Nursing documentation reviewed up to this point in time: agreed with
History of Present Illness
History of Present Illness:
79-year-old male past medical history of Parkinson's seizure disorder hyperlipidemia presenting to the emergency department today with concerns of altered mental status and generalized weakness fatigue worsening throughout the day today. Has had
similar symptoms in the past when he had urinary tract infections. Recently had a Rios that was removed 2 weeks ago. Also diagnosed with potential C. difficile by his primary care doctor but did not have any specific testing according to family
and is currently taking metronidazole.
Past History
<Ryder Stoll Jr., PA-C - Last Filed: 06/30/25 03:05>
Past History
ED Past Medical History: Hypercholesterolemia and Other (Parkinson's)
ED Past Surgical History: Orthopedic (Back surgery)
Social History
Tobacco: Non-smoker
Alcohol: None
Personal:
Living: with family
Review of Systems
<MEGHAN Lee Jr. Last Filed: 06/30/25 03:05>
Review of Systems
Allergies reviewed?: Yes
Other source history: family
All Other Systems: ROS reviewed and negative except as documented in HPI and ROS
Phy Exam
<MEGHAN Lee Jr. Last Filed: 06/30/25 03:05>
Physical Exam
Physical Exam:
GENERAL: Alert , in no apparent distress
EYE: pupils equal and reactive
NECK: Supple, no significant adenopathy.
ENT: o/p clr, mmm.
CARDIAC: Regular rate and rhythm .
LUNGS: Clear breath sounds bilaterally, no acute respiratory distress, no wheezes/rales/rhonchi
ABDOMEN: Soft, without focal tenderness, no r/g, no cvat
NEUROLOGICAL: Alert , no focal neuro deficits
SKIN: Warm and dry, skin intact.
MUSCULOSKELETAL: No edema, well perfused.
PSYCH: Normal and appropriate interaction.
Course
<Ryder Stoll Jr., PA-C - Last Filed: 06/30/25 03:05>
Orders/Labs/Results
Orders:
Orders
06/29/25 22:25
Complete Blood Count/With Diff Urgent
Comprehensive Metabolic Panel Urgent
06/29/25 22:48
Urinalysis Reflex To Culture Urgent
Date Specimen was Collected: 06/29/25
Time Specimen was Collected: 22:24
Urine Microscopic Reflex Cult Urgent
Urine Culture Urgent
JESSICA Source: U
Specimen Description:
Date Specimen was Collected: 06/29/25
Time Specimen was Collected: 22:24
06/29/25 23:54
Lactic Acid Urgent
STOOL [C difficile Antigen & Toxins] Urgent
JESSICA Source: Feces/Stool
Specimen Description:
Stool Culture Urgent
JESSICA Source: Feces/Stool
Specimen Description:
06/29/25 23:55
0.9% Sodium Chloride 500 ml [Nss] 500 ml IV BOLUS
06/30/25 00:13
Cefepime HCl [Maxipime] 2,000 mg IV NOW STA
06/30/25 00:15
Alprazolam [Xanax] 0.25 mg PO NOW STA
06/30/25 01:00
Quetiapine Fumarate [Seroquel] 25 mg PO NOW STA
06/30/25 01:58
Admit/Transfer Patient As Directed
Co-Sign Provider:
Level of Care: Inpatient admission
Assign to:: Medical/Surgical
Physician / Group: Alejandro
Diagnosis: UTI, JENKINS
Reason for Hospitalization: UTI, JENKINS
Expected length of stay greater than two midnights?: Yes
ELOS- Estimated Length of Stay in days: 3
I certify the patient meets the requirements for IP care: Yes
PRN Pain Medication Management As Directed
May give lesser potent ordered pain med per pt: Yes
preference::
Protocol:: Medication orders for pain may be administered in a
manner that supports deferring to patient preference
when the pt is:
- Requesting an ordered lesser potent pain medication.
Least to most potent pain medications are defined
as: acetaminophen < NSAID < tramadol < opioids
(morphine, oxycodone, hydromorphone).
- Requesting a lesser dose of the same medication IF
ORDERED.
- Requesting a less intrusive route of administration
if both routes are prescribed by the provider (PO <
IV).
06/30/25 02:00
Code Status As Directed
Resuscitation Status: Do not resuscitate
Reached after discussion with pt or family/Healthcare POA: Yes
DNR Bracelet Application ONCE
Abnormal Lab Results
06/29/25 06/29/25
22:25 22:48
RBC 3.69 L 10^6/uL
(4.70-6.10)
Hgb 10.7 L g/dL
(13.0-18.0)
Hct 33.9 L %
(39.0-52.0)
MCHC 31.6 L g/dL
(33.0-37.0)
Abs Immat Gran (auto) 0.1 H 10^3/uL
(0-0.05)
Absolute Neuts (auto) 8.1 H 10^3/uL
(1.4-6.5)
Absolute Lymphs (auto) 0.4 L 10^3/uL
(1.2-3.4)
Absolute Monos (auto) 0.9 H 10^3/uL
(0.1-0.6)
Neutrophils % 85.4 H %
(42.2-75.2)
Lymphocytes % 4.2 L %
(20.5-51.1)
Monocytes % 9.5 H %
(1.7-9.3)
Sodium 127 L mmol/L
(135-145)
Chloride 97 L mmol/L
(98-107)
Glucose 112 H mg/dl
(70-99)
AST 11 L U/L
(17-59)
Ur Occult Blood Reflex 2+ A
(Negative)
Urine Nitrite (Reflex) Positive A
(Negative)
Leukocyte Esterase Rfl 1+ A
(Negative)
Urine RBC 3-6 A /HPF
(0-2)
Urine WBC (Reflex) 30-40 A /HPF
(0-5)
Urine Bacteria (Reflex) Few A
(Negative)
Urine Albumin (Reflex) 1+ A
(Neg - Trace)
06/29/25 22:25
06/29/25 22:25
Vital Signs
Initial and Last Documented VS:
Initial Vital Signs
Pulse Resp BP
107 22 148/72
06/29/25 22:03 06/29/25 22:03 06/29/25 22:03
Last Documented Vital Signs
Temp Pulse Resp BP Pulse Ox
98.0 F 117 24 151/79 96
06/29/25 22:07 06/30/25 01:00 06/30/25 01:00 06/30/25 01:00 06/30/25 00:33
<Long Lopez, DO - Last Filed: 06/30/25 01:43>
Orders/Labs/Results
Orders:
Orders
06/29/25 22:25
Complete Blood Count/With Diff Urgent
Comprehensive Metabolic Panel Urgent
06/29/25 22:48
Urinalysis Reflex To Culture Urgent
Date Specimen was Collected: 06/29/25
Time Specimen was Collected: 22:24
Urine Microscopic Reflex Cult Urgent
Urine Culture Urgent
JESSICA Source: U
Specimen Description:
Date Specimen was Collected: 06/29/25
Time Specimen was Collected: 22:24
06/29/25 23:54
Lactic Acid Urgent
STOOL [C difficile Antigen & Toxins] Urgent
JESSICA Source: Feces/Stool
Specimen Description:
Stool Culture Urgent
JESSICA Source: Feces/Stool
Specimen Description:
06/29/25 23:55
0.9% Sodium Chloride 500 ml [Nss] 500 ml IV BOLUS
06/30/25 00:13
Cefepime HCl [Maxipime] 2,000 mg IV NOW STA
06/30/25 00:15
Alprazolam [Xanax] 0.25 mg PO NOW STA
06/30/25 01:00
Quetiapine Fumarate [Seroquel] 25 mg PO NOW STA
06/30/25 01:58
Admit/Transfer Patient As Directed
Co-Sign Provider:
Level of Care: Inpatient admission
Assign to:: Medical/Surgical
Physician / Group: Alejandro
Diagnosis: UTI, JENKINS
Reason for Hospitalization: UTI, JENKINS
Expected length of stay greater than two midnights?: Yes
ELOS- Estimated Length of Stay in days: 3
I certify the patient meets the requirements for IP care: Yes
PRN Pain Medication Management As Directed
May give lesser potent ordered pain med per pt: Yes
preference::
Protocol:: Medication orders for pain may be administered in a
manner that supports deferring to patient preference
when the pt is:
- Requesting an ordered lesser potent pain medication.
Least to most potent pain medications are defined
as: acetaminophen < NSAID < tramadol < opioids
(morphine, oxycodone, hydromorphone).
- Requesting a lesser dose of the same medication IF
ORDERED.
- Requesting a less intrusive route of administration
if both routes are prescribed by the provider (PO <
IV).
06/30/25 02:00
Code Status As Directed
Resuscitation Status: Do not resuscitate
Reached after discussion with pt or family/Healthcare POA: Yes
DNR Bracelet Application ONCE
Abnormal Lab Results
06/29/25 06/29/25
22:25 22:48
RBC 3.69 L 10^6/uL
(4.70-6.10)
Hgb 10.7 L g/dL
(13.0-18.0)
Hct 33.9 L %
(39.0-52.0)
MCHC 31.6 L g/dL
(33.0-37.0)
Abs Immat Gran (auto) 0.1 H 10^3/uL
(0-0.05)
Absolute Neuts (auto) 8.1 H 10^3/uL
(1.4-6.5)
Absolute Lymphs (auto) 0.4 L 10^3/uL
(1.2-3.4)
Absolute Monos (auto) 0.9 H 10^3/uL
(0.1-0.6)
Neutrophils % 85.4 H %
(42.2-75.2)
Lymphocytes % 4.2 L %
(20.5-51.1)
Monocytes % 9.5 H %
(1.7-9.3)
Sodium 127 L mmol/L
(135-145)
Chloride 97 L mmol/L
(98-107)
Glucose 112 H mg/dl
(70-99)
AST 11 L U/L
(17-59)
Ur Occult Blood Reflex 2+ A
(Negative)
Urine Nitrite (Reflex) Positive A
(Negative)
Leukocyte Esterase Rfl 1+ A
(Negative)
Urine RBC 3-6 A /HPF
(0-2)
Urine WBC (Reflex) 30-40 A /HPF
(0-5)
Urine Bacteria (Reflex) Few A
(Negative)
Urine Albumin (Reflex) 1+ A
(Neg - Trace)
06/29/25 22:25
06/29/25 22:25
Vital Signs
Initial and Last Documented VS:
Initial Vital Signs
Pulse Resp BP
107 22 148/72
06/29/25 22:03 06/29/25 22:03 06/29/25 22:03
Last Documented Vital Signs
Temp Pulse Resp BP Pulse Ox
98.0 F 117 24 151/79 96
06/29/25 22:07 06/30/25 01:00 06/30/25 01:00 06/30/25 01:00 06/30/25 00:33
<Ryder Stoll Jr., PA-C - Last Filed: 06/30/25 03:05>
MDM/Problems Addressed
MDM/Problems Addressed:
79-year-old male presenting to the emergency department today with concerns of altered mental status from home. On arrival mildly tachycardic afebrile other vital signs normal. Patient somewhat agitated on examination and somewhat confused
majority of history coming from family. Apparently unable to ambulate at home secondary to lower extremity weakness. Was found to have low sodium of 127 urinalysis potentially consistent with UTI. Was started on antibiotics. Additional concern
of potential C. difficile stool testing was ordered. Plan to admit due to significant illness at this time.
<Ryder Stoll Jr., PA-C - Last Filed: 06/30/25 03:05>
*Pulse Oximetry
SaO2: 96
Oxygen Mode of Delivery: Room air
Patient hypoxic: no (96)
*Critical Care Note
Total Time (30-74mins, 75-104mins- exclusive of procedures): Not Applicable
ED Attending Note
<Ryder Stoll Jr., PA-C - Last Filed: 06/30/25 03:05>
-
Portions of this chart may have been created with voice recognition software.� Occasional wrong word or��sound alike� substitutions may have occurred due to the inherent limitations of voice recognition software.
<Long Lopez DO - Last Filed: 06/30/25 01:43>
ED Attending Note
Patient seen and examined by attending physician: Yes
I performed the substantive portion of visit, reviewed & personally made and approve the management plan that is documented in note by myself or SIDDHARTHA.: Yes
ED Attending Note:
Mild hyponatremia, sodium urinalysis suggest infection, starting antibiotics.
Discharge Plan
Departure
Patient Disposition: Admit
Date of Disposition: 06/30/25
Time of Disposition: 01:36
Admit to: IMU
Admit to doctor: Alejandro
Presentation/result/management discussed w/ accepting MD/DO: Hospitalist
Patient with high blood pressure during this ER visit?: No
Condition: Fair
Covid-19: Not Applicable
Discharge Problem:
Acute UTI, AMS (altered mental status)
Interventions
Interventions:
*Risk Screen - Suicide Last Done: 06/29/25 22:07
*General Assessment Last Done: 06/29/25 22:07
*Neglect/Abuse Screening Last Done: 06/29/25 22:07
*ED- Fall Risk Assessment Last Done: 06/29/25 22:16
*ED COVID-19 Vaccine History Last Done: 06/29/25 22:16
*ED Influenza Vaccine History Last Done: 06/29/25 22:16
ED- Pulmonary Assessment Last Done: 06/29/25 22:16
ED- Neurological Assessment Last Done: 06/29/25 22:16
ED- Cardiac Assessment Last Done: 06/29/25 22:16
[2025-06-30] MEDS: SEROQUEL 25 MG PO ×3 (01:04→21:49)
--- NOTE | 2025-06-30 02:03 | HPS.HSE ---
Family Physician
-
Family Physician: Miguel Aguilar
Chief Complaint
-
Weakness, Confusion
History of Present Illness
Patient is an 79y M with PMH significant for Parkinson's disease with dementia, BPH and prior obstructive uropathy who presents to ED for evaluation of weakness and confusion. History obtained from family at the bedside. Patient was noted this
afternoon around 4:30 to become fairly suddenly weak / fatigued and with increased confusion. He was unable to stand / ambulate even with assistance. He has had similar symptoms in the past related to urinary tract infections.
Patient was last hospitalized here in March secondary to Enterococcus UTI at that time.
He has since been hospitalized multiple times at [facility]. 04/27 - 04/28 secondary to UTI. He underwent HoLEP procedure on 05/11. He was admitted 05/17 - 05/23 secondary to hematuria / clotting post-procedure.
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
He failed several TOV before ultimately passing and having Rios removed on 06/13.
He was at SNF until 06/15 and has been home since.
notes that he developed severe, watery diarrhea at that has persisted.
He was treated with 2 weeks of Flagyl 500mg TID. His symptoms did not improve and his PCP renewed the Rx just yesterday. No formal stool testing was done.
Medical History
Past Medical History
Past Medical History: Reports Other
Additional Past Medical History:
Parkinson's Disease with Orthostasis, Dementia
BPH
Urinary Retention
Glaucoma
Past Surgical History: Reports Other
Additional Past Surgical History:
HoLEP (05/11/25)
Social History
Tobacco: Non-smoker
Alcohol: None
Drug: None
Living: With Family
Family History
Family History: Not pertinent
Allergies / Home Medications
Allergies reflects when Allergies were last updated in [facility].
Home Medications with original date entered in [email or web address]
Allergy/Medication List:
Allergies
Allergy/AdvReac Type Severity Reaction Status Date / Time
lorazepam Allergy Unknown Verified 06/29/25 23:09
Home Medications
acetaminophen 500 mg tablet (Tylenol Extra Strength) 500 mg PO BID Pain 03/14/25
alendronate 70 mg tablet 70 mg PO MO Osteoporosis 03/14/25
brimonidine 0.15 % eye drops 1 drp BOTH EYES TID Eye Condition 03/14/25
carbamazepine 200 mg tablet,extended release,12 hr (Tegretol XR) 400 mg PO BID Neurological Condition 03/14/25
carbidopa 25 mg tablet 25 mg PO Q8H Neurological Condition 03/14/25
carbidopa 25 mg-levodopa 100 mg tablet 2 tab PO TID Neurological Condition 03/14/25
losartan 25 mg tablet 25 mg PO DAILY Blood Pressure 03/14/25
simvastatin 20 mg tablet 20 mg PO HS High Cholesterol 03/14/25
travoprost 0.004 % eye drops 1 drp BOTH EYES HS Eye Condition 03/14/25
duloxetine 60 mg capsule,delayed release 60 mg PO DAILY 06/30/25
methenamine hippurate 1 gram tablet 1 g PO BID 06/30/25
metronidazole 500 mg tablet 500 mg PO Q8H 06/30/25
quetiapine 25 mg tablet 25 mg PO HS 06/30/25
sennosides 8.6 mg-docusate sodium 50 mg tablet (Senna with Docusate Sodium) 1 tab-cap PO HS PRN constipation 06/30/25
Review of Systems
-
Unable to obtain full review of systems at this time due to: Dementia
History Source: Patient and Family
Constitutional: Reports Fatigue; Denies Fever or Chills
Respiratory: Denies Cough or Trouble Breathing
Cardiac: Denies Chest Pain or Palpitations
Abdomen/GI: Reports Diarrhea; Denies Abdominal Pain, Nausea, Vomiting, Bloody Stools or Black Stools
: Reports Difficulty Voiding; Denies Dysuria, Incontinence or Bleeding
Musculoskeletal: Reports Edema; Denies Joint Pain
Neurological: Denies Dizzy or Headache
Psych: Denies Depression or Anxiety
Physical Exam
Vital Signs
Vital Signs
Temp Pulse Resp BP Pulse Ox
98.0 F 117 24 151/79 96
06/29/25 22:07 06/30/25 01:00 06/30/25 01:00 06/30/25 01:00 06/30/25 00:33
Physical Exam
General: Other (79y M in no acute distress. Sleeping comfortably when not disturbed. Flushed appearing.)
HEENT: Other (Dry MM. Neck supple.)
Respiratory: Other (Decreased at bases - otherwise clear.)
Cardiac: S1/S2, Tachycardia and Murmur (III/ MARY ANN)
GI: Soft, Non Tender, Non Distended and Normal Bowel Sounds
Musculoskeletal: No Clubbing, No Cyanosis and Other (1-2+ edema b/l LEs)
Neuro: Awake and Alert; No Oriented
Laboratory Results
-
06/29/25 22:25
06/29/25 22:25
Laboratory Results
Lactic Acid 1.1 mmol/L (0.7-2.0) 06/30/25 00:09
Total Bilirubin 0.5 mg/dl (0.2-1.3) 06/29/25 22:25
AST 11 U/L (17-59) L 06/29/25 22:25
ALT < 10 U/L (0-50) 06/29/25 22:25
Alkaline Phosphatase 86 U/L (38-126) 06/29/25 22:25
Impression/Plan
-
A/P: Patient is an 79y M with PMH significant for Parkinson's disease with dementia and recent issues with JENKINS / recurrent UTI who presents to ED from home for evaluation of weakness and confusion.
UTI
Acute TME secondary to the above
Sepsis secondary to the above
BPH w/LUTS
- Admit for further evaluation and treatment.
- UA consistent with infection and h/o similar previous presentations. Evidence of organ impairment in form of acute TME.
- Continue cefepime pending culture data.
- Bladder scan protocol and monitor closely for any retention given prior issues - though he is s/p HoLEP since that time.
- Straight cath +/- Rios (likely the latter) if needed.
- No tamsulosin given known orthostasis.
- Follow for clinical improvement.
Acute on Chronic Hyponatremia
Edema
- Hold IVFs for now as BP stable and evidence of some volume overload on exam.
- TEDs stockings / elevation.
- Fluid restriction.
- Check Echo for any evidence of cardiomyopathy.
- Consider trial of Lasix if no improvement in Na levels, edema, etc.
Diarrhea
- ? abx-associated diarrhea versus CDiff versus other.
- notes that patient was given Imodium the past 2 days. Avoid further doses pending cultures.
- No significant leukocytosis as one might expect with CDiff.
- Stool studies.
- Hold on further metronidazole for now.
Normocytic Anemia
- Hgb somewhat decreased from baseline - likely secondary to recent blood loss event with hematuria / clots post-HoLEP (mid-May).
- Check iron studies.
- Follow H&H for changes.
Parkinson's Disease with Dementia
Orthostatic Hypotension
- Continue current carbidopa dosing with no changes.
- Follow orthostatic signs - was previously on midodrine.
- TEDs stockings, etc as noted above.
- Follow for acute delirium / agitation during hospital stay.
- Continue usual HS quetiapine.
DVT prophylaxis: Subcut heparin
Code Status: DNR
[2025-06-30] MEDS: TYLENOL 650 MG PO ×2 (05:27→10:46)
--- NOTE | 2025-06-30 06:36 | PTCARENOTE ---
> 0318 Pt received from ED via stretcher w/ spouse and maintenance mechanic supervisor. PMH and medications reviewed by this RN and spouse. Per spouse, when pt has a UTI, he is restless and combative when spouse is not accompanying him; she also states that on past
hospitalizations, pt required a 1:1. Ceramic Worker will stay with patient until spouse comes back around 0800.
>0515 Pt restless and argumentative with maintenance mechanic supervisor, attempting to get OOB. House INTERVENTIONAL RADIOLOGY RN made aware. 0535 STAT dose Seroquel ordered and administered, non violent soft limb- L&R wrist/ 4 rail ordered and placed for protective measures. EKG for QTc
monitoring obtained> Sinus Tachycardia, RBBB, left anterior fascicular block, Bifascicular block> refer to report placed in pt's chart.
>0558 Pt bladder scan 541ml and straight cath 700ml yellow urine. tolerated.
Plan of care discussed with pt and maintenance mechanic supervisor.
[2025-06-30 08:01] LABS: Hematocrit 29.9 % (39.0-52.0); Hemoglobin 10.0 g/dL (13.0-18.0); Mean Corp Hgb Conc. 33.4 g/dL (33.0-37.0); Mean Corpuscular Volume 89.5 fL (80.0-94.0); Platelet Count 137 10^3/uL (130-400); Red Cell Dist. Width 14.4 % (11.5-14.5)
[2025-06-30 08:17] LABS: Blood Urea Nitrogen 14 mg/dl (9-20); Calcium 8.2 mg/dl (8.4-10.2); Carbon Dioxide 24 mmol/L (22-30); Chloride 100 mmol/L (98-107); Estimated Creatinine Clearance 114 ml/min; Glucose 102 mg/dl (70-99); Iron 33 ug/dl (49-181); Potassium 3.7 mmol/L (3.5-5.1); Sodium 132 mmol/L (135-145); eGFR > 60.00
[2025-06-30] MEDS: ALPHAGAN 0.2% EYE DROPS 1 DROP BOTH EYES ×3 (08:26→21:53)
[2025-06-30] MEDS: HEPARIN 5000 UNITS SC ×2 (08:26→19:47)
[2025-06-30] MEDS: TEGRETOL XR (EXTENDED RELEASE) 400 MG PO ×2 (08:26→19:48)
[2025-06-30] MEDS: CYMBALTA DELAYED RELEASE 60 MG PO (08:26)
[2025-06-30] MEDS: SINEMET 25-100 2 TABLET PO ×3 (08:26→21:45)
[2025-06-30 08:30] LABS: Total Iron Binding Capacity 284 ug/dl (261-462)
[2025-06-30 08:43] LABS: Ferritin 28.3 ng/ml (17.9-464.0)
[2025-06-30] MEDS: COZAAR PO (08:44)
[2025-06-30] MEDS: ROCEPHIN 1000 MG IV (10:49)
[2025-06-30] MEDS: STERILE WATER FOR INJECTION 10 ML IV ×3 (10:49→21:44)
--- NOTE | 2025-06-30 13:08 | W.PN.HOSP.TC ---
Today's Communication/Plan
-
Obtain outpatient cardiology records
Advance diet
History of Pseudomonas antibiotic to cefepime
Await urine culture
Compression therapy
Monitor mentation
Assessment / Plan
Assessment / Plan
General: Sitting in chair comfortably
HEENT: Other (Dry MM. Neck supple.)
Respiratory: Other (Decreased at bases - otherwise clear.)
Cardiac: S1/S2, Tachycardia and Murmur (III/ MARY ANN)
GI: Soft, Non Tender, Non Distended and Normal Bowel Sounds
Musculoskeletal: No Clubbing, No Cyanosis and bilateral lower extremity edema nonpitting.
Neuro: Awake and Alert; No Oriented
A/P: Patient is an 79y M with PMH significant for Parkinson's disease with dementia and recent issues with JENKINS / recurrent UTI who presents to ED from home for evaluation of weakness and confusion.
UTI
Acute TME secondary to the above
Sepsis secondary to the above
BPH w/LUTS
- UA consistent with infection and h/o similar previous presentations. Evidence of organ impairment in form of acute TME.
- Patient recently had Pseudomonas infection at [facility]
- Bladder scan protocol and monitor closely for any retention given prior issues - though he is s/p HoLEP since that time.
- Straight cath +/- Rios (likely the latter) if needed.
- No tamsulosin given known orthostasis.
- Follow for clinical improvement.
Acute on Chronic Hyponatremia
Edema-per family edema has improved
- Hold IVFs for now as BP stable and evidence of some volume overload on exam.
- TEDs stockings / elevation.
- Fluid restriction.
- Sodium improved. Compression therapy
HFrEF unclear chronicity
- Patient follows with Dr. Mckay and recently seen him in the office
- Outpatient records requested. Per spouse patient has 'leaky valve.'
- Dilated left ventricle with moderately reduced systolic function. EF of 30 to 35%. Circumflex/RCA territory wall motion abnormality. Dilated right ventricle with normal systolic function moderate to severe eccentric mitral regurgitation.
Moderate tricuspid regurgitation. Estimated PASP 30 mmHg.
- Not on diuretics as outpatient. proBNP 3050. Unclear baseline.
Diarrhea
- ? abx-associated diarrhea versus CDiff versus other.
- notes that patient was given Imodium the past 2 days. Avoid further doses pending cultures.
- No significant leukocytosis as one might expect with CDiff.
- Stool studies. Advance diet
- Hold on further metronidazole for now.
Normocytic Anemia
- Hgb somewhat decreased from baseline - likely secondary to recent blood loss event with hematuria / clots post-HoLEP (mid-May).
- Check iron studies.
- Follow H&H for changes.
Parkinson's Disease with Dementia
Orthostatic Hypotension
- Continue current carbidopa dosing with no changes.
- Follow orthostatic signs - was previously on midodrine.
- TEDs stockings, etc as noted above.
- Follow for acute delirium / agitation during hospital stay.
- Continue usual HS quetiapine.
DVT prophylaxis: Subcut heparin
Code Status: DNR
Discussed with spouse, son and daughter at bedside in detail
Anticipated Discharge: > 48 hours
Subjective/Interval History
-
Date of Service: June 30, 2025
Sitting in chair
More awake and alert
Not agitated
Worked with therapy earlier
No bowel movement since last night
Objective Data
-
Labs:
Laboratory Results
06/30/25
06:28
WBC 6.8
Hgb 10.0 L
Hct 29.9 L
Plt Count 137
Sodium 132 L
Potassium 3.7
Chloride 100
Carbon Dioxide 24
BUN 14
Creatinine 0.6 L
Glucose 102 H
Calcium 8.2 L
Vital Signs:
Vital Signs
Temp Pulse Resp BP Pulse Ox
97.8 F 96 18 107/48 97
06/30/25 08:54 06/30/25 08:54 06/30/25 08:54 06/30/25 08:54 06/30/25 08:54
I&O
06/29/25 06/30/25 07/01/25
06:59 06:59 06:59
Output Total 700 / 700 350 / 350
Balance -700 / -700 -350 / -350
--- NOTE | 2025-06-30 15:15 | CM ---
Addendum entered by Catherine Thompson 06/30/25 16:32:
Patient is current with [facility] for home health care needs/ PT/OT
Original Note:
Patient seen at bedside with and son. Patient confused and working with therapy at this time. Patient states that patient has been at [facility] and remained delirious and improved when they returned to home with 24/7 aides from [employer]
home health. Patient plan is for discharge home with 24/7 with aides when medically appropriate. Patient PCP is Dr. Balderas and they use the [facility] in [place]. Patient has been on restraints when family not present and plans
to have aides be present with patient to reduce need for restraints. CM will continue to follow for discharge planning needs.
PLan; home with aides / with [employer] watch for VN needs for therapy
[2025-06-30] MEDS: XALATAN OPHTHALMIC SOLUTION 1 DROP BOTH EYES (21:42)
[2025-06-30] MEDS: DESENEX/MITRAZOL/ZEASORB 1 APPLIC TOPICAL (21:45)
[2025-06-30] MEDS: LIPITOR 10 MG PO (21:49)
[2025-07-01] MEDS: TYLENOL 650 MG PO ×2 (02:08→21:47)
[2025-07-01] MEDS: STERILE WATER FOR INJECTION 10 ML IV ×3 (05:23→21:46)
[2025-07-01] MEDS: MAXIPIME 2000 MG IV ×3 (05:23→21:45)
[2025-07-01 05:56] VITALS: BMI 23.1
[2025-07-01 06:00] VITALS: BMI 23.1
[2025-07-01 07:11] LABS: Hematocrit 30.0 % (39.0-52.0); Hemoglobin 9.6 g/dL (13.0-18.0); Mean Corp Hgb Conc. 32.0 g/dL (33.0-37.0); Mean Corpuscular Volume 89.6 fL (80.0-94.0); Nucleated Red Blood Cells % 0 % (-); Platelet Count 144 10^3/uL (130-400); Red Cell Dist. Width 14.7 % (11.5-14.5)
[2025-07-01] MEDS: HEPARIN 5000 UNITS SC ×2 (07:27→20:34)
[2025-07-01] MEDS: CYMBALTA DELAYED RELEASE 60 MG PO (07:28)
[2025-07-01] MEDS: SINEMET 25-100 2 TABLET PO ×3 (07:28→21:46)
[2025-07-01] MEDS: TEGRETOL XR (EXTENDED RELEASE) 400 MG PO ×2 (07:28→20:34)
[2025-07-01] MEDS: ALPHAGAN 0.2% EYE DROPS 1 DROP BOTH EYES ×3 (07:29→21:46)
[2025-07-01] MEDS: DESENEX/MITRAZOL/ZEASORB 1 APPLIC TOPICAL ×2 (07:29→20:35)
[2025-07-01 07:50] LABS: Blood Urea Nitrogen 14 mg/dl (9-20); Calcium 8.3 mg/dl (8.4-10.2); Carbon Dioxide 26 mmol/L (22-30); Chloride 100 mmol/L (98-107); Estimated Creatinine Clearance 113 ml/min; Glucose 94 mg/dl (70-99); Potassium 3.7 mmol/L (3.5-5.1); Sodium 132 mmol/L (135-145); eGFR > 60.00
[2025-07-01 08:00] VITALS: BP 121/62
[2025-07-01 11:02] VITALS: BP 120/64; PULSE 92; O2SAT 98
[2025-07-01 11:05] VITALS: BP 120/64
--- NOTE | 2025-07-01 12:00 | W.PN.HOSP.TC ---
Addendum entered and electronically signed by Jorden Vigil MD 07/01/25 13:10:
ECHO results from 09/15/24 EF of 55 to 60%. Grade 1 diastolic dysfunction. There is a mild inferior wall hypokinesis. Moderate to severe mitral regurgitation. Patient with significant reduction in ejection fraction of 30 to 35%. Will ask
cardiology for input.
Addendum entered and electronically signed by Jorden Vigil MD 07/01/25 12:53:
Awaiting further cardiology records
Discussed with spouse and daughter at bedside in details
Original Note:
Today's Communication/Plan
-
await UCx
await OP records
monitor BP
IV abx for now
Assessment / Plan
Assessment / Plan
General: Sitting in chair comfortably
HEENT: Other (Dry MM. Neck supple.)
Respiratory: Other (Decreased at bases - otherwise clear.)
Cardiac: S1/S2, Tachycardia and Murmur (III/ MARY ANN)
GI: Soft, Non Tender, Non Distended and Normal Bowel Sounds
Musculoskeletal: No Clubbing, No Cyanosis and bilateral lower extremity edema nonpitting.
Neuro: Awake and Alert; No Oriented
A/P: Patient is an 79y M with PMH significant for Parkinson's disease with dementia and recent issues with JENKINS / recurrent UTI who presents to ED from home for evaluation of weakness and confusion.
UTI
Acute TME secondary to the above
Sepsis secondary to the above
BPH w/LUTS
- UA consistent with infection and h/o similar previous presentations. Evidence of organ impairment in form of acute TME.
- Patient recently had Pseudomonas infection at [facility]
- Bladder scan protocol and monitor closely for any retention given prior issues - though he is s/p HoLEP since that time.
- Straight cath +/- Rios (likely the latter) if needed.
- No tamsulosin given known orthostasis.
- Follow for clinical improvement.
- Ucx preliminary with gram negative bacilli. On IV cefepime.
Acute on Chronic Hyponatremia
Edema-per family edema has improved
- TEDs stockings / elevation.
- Fluid restriction.
- Sodium improved. Compression therapy.
-
HFrEF unclear chronicity
- Patient follows with Dr. Mckay and recently seen him in the office
- Outpatient records requested. Per spouse patient has 'leaky valve.'
- ECHO with Dilated left ventricle with moderately reduced systolic function. EF of 30 to 35%. Circumflex/RCA territory wall motion abnormality. Dilated right ventricle with normal systolic function moderate to severe eccentric mitral
regurgitation. Moderate tricuspid regurgitation. Estimated PASP 30 mmHg.
- Not on diuretics as outpatient. proBNP 3050. Unclear baseline. Was not placed on diuretics as outpatient due to urinary urgency/orthostasis .
- still awaiting records.
Diarrhea-seems to have resolved
- ? abx-associated diarrhea . Now having formed stools. Cdiff cancelled.
- notes that patient was given Imodium the past 2 days. Avoid further doses pending cultures.
- Hold on further metronidazole for now.
Normocytic Anemia with JERRY
- Hgb somewhat decreased from baseline - likely secondary to recent blood loss event with hematuria / clots post-HoLEP (mid-May).
- Started IV iron
- Follow H&H for changes.
Parkinson's Disease with Dementia
Orthostatic Hypotension
- Continue current carbidopa dosing with no changes.
- Follow orthostatic signs - was previously on midodrine.
- TEDs stockings, etc as noted above.
- Follow for acute delirium / agitation during hospital stay.
- Continue usual HS quetiapine.
DVT prophylaxis: Subcut heparin
Code Status: DNR
Anticipated Discharge: > 48 hours
Subjective/Interval History
-
Date of Service: July 01, 2025
sitting in chair.
not agitated
remains afebrile
Objective Data
-
Labs:
Laboratory Results
07/01/25
06:42
WBC 5.3
Hgb 9.6 L
Hct 30.0 L
Plt Count 144
Sodium 132 L
Potassium 3.7
Chloride 100
Carbon Dioxide 26
BUN 14
Creatinine 0.6 L
Glucose 94
Calcium 8.3 L
Vital Signs:
Vital Signs
Temp Pulse Resp BP Pulse Ox
99.0 F 86 18 121/62 95
07/01/25 08:00 07/01/25 08:00 07/01/25 08:00 07/01/25 08:00 07/01/25 11:04
I&O
06/30/25 07/01/25 07/02/25
06:59 06:59 06:59
Intake Total 480 / 480
Output Total 700 / 700 1400 / 1400
Balance -700 / -700 -920 / -920
Data Reviewed
-
Total Time Spent with Patient (in minutes): 55
[2025-07-01] MEDS: FERRLECIT 110 MG IV (13:13)
--- NOTE | 2025-07-01 13:28 | CON.CAR ---
Addendum entered and electronically signed by Nusrat Edward MD 07/01/25 18:26:
I saw and evaluated the patient, and I provided the substantive portion of the medical decision making.
I reviewed and agree with the note by Ira LUNSFORD and it accurately reflects our care.
I personally performed the medical decision making of the this encounter and my assessment and plan is below:
79-year-old gentleman with a past medical history of Parkinson's disease and OBS, epilepsy, valvular heart disease followed by Dr. Truong at [facility] who presented with confusion. We are asked to comment as echocardiogram was ordered during
the hospitalization and found to have a new LVEF of 30 to 35% Dilated RV, severe moderate to severe MR mild aortic regurgitation and PASP of 30. His family is at the bedside and adds to the hsitory. He denies any cp or sob. He was admitted with
urosepsis. He was told by urology to drink as much fluid as possible, but it sounds like this is still only ~40oz a day. Additionally, they are aware of the valve disease and understand that he is not a candidate for open heart surgery. In fact
with his memory deficit, probably not a candidate for any invasive procedure. His states that orthostasis has never been a significant issue for him. She reports they never actually saw this when checking vital signs.
Additionally he always has some degree of swelling in his legs per their report.
On exam he is calm and cooperative. He is in no apparent distress and has no complaints. He has a regular rate and rhythm with a 2 out of 6 holosystolic murmur at the apex, lungs are clear to auscultation bilaterally there is 1+ pitting edema in
the legs bilaterally.
Echo described below.
Weight is lower than its been in the past.
Assessment:
Chronic mitral valve disease: Moderate to severe
Heart failure with reduced ejection fraction, likely etiology underlying valve disease however sepsis could be playing a role
Parkinson's with dementia
Urosepsis
Plan:
He is asymptomatic and would not offer any invasive testing at this time. Will try to add on a small dose of MRA to see if this helps with cardiomyopathy and a gentle diuresis. Will need to add things thoughtfully and slowly given his Parkinson's
disease and propensity for developing orthostasis. Will not order SGLT2 right now given urosepsis.
Will need an outpatient renal panel at 1 week, 3 weeks and every 3 months if he tolerates MRA.
Recommend follow-up with typical stopper grinder as an outpatient to discuss if any intervention to pursue. This requires thoughtful consideration given his Parkinson's dementia.
Tubigrips ordered.
Family at the bedside answered all questions.
Will follow.
Outside records reviewed: ECHO results from 09/15/24 EF of 55 to 60%. Grade 1 diastolic dysfunction. There is a mild inferior wall hypokinesis. Moderate to severe mitral regurgitation. Patient with significant reduction in ejection fraction of 30
to 35%. Will ask cardiology for input.
I did fax a copy of our echo to his primary stopper grinder at the family's request.
Original Note:
Consultation
Consultation Request
Date/Time Consultation Requested: 07/01/2025 13:10
Date/Time Consultation Performed: 07/01/2025 13:30
Requesting Provider: Dr. Vigil
Performing Provider: JONN Angel for Dr. Edward
Reason for Consultation: HFrEF, severe MR
Medical History
-
Chief Complaint: Confusion
History of Present Illness:
Vladimir Alaniz is an 79-year-old male (known to Dr. Smallwood, his primary stopper grinder), with HTN, HLD, Parkinson's disease, dementia, epilepsy, & BPH with prior obstructive uropathy presented to the emergency room yesterday with a chief complaint
of confusion. Per his who is at the bedside, the patient has been told to push oral intake due to recent admissions with UTI and bladder issues. He was told by his urologist to drink is much as possible. Cardiology was consulted as an
echocardiogram was ordered by the primary service and he was found to have an LVEF of 30-35%. His and daughter at the bedside. HPI is limited due to patient's mental status
He has had multiple recent hospitalizations including April due to UTI then HoLEP earlier this month followed by another admission with hematuria.
Past Medical History
Past Medical History: Hypercholesterolemia, Seizures and Other (Dementia, Parkinson's)
Social History
Tobacco: Non-Smoker
Alcohol: None
Drug: None
Employment: Retired
Family History
Family History: Reviewed & Not Pertinent
Allergies / Home Medications
Allergy/AdvReac Type Severity Reaction Status Date / Time
lorazepam Allergy Unknown Verified 06/29/25 23:09
�Medication �Instructions �Recorded �Confirmed �Type
acetaminophen 500 mg tablet 500 mg PO BID Pain 03/14/25 06/30/25 History
(Tylenol Extra Strength)
alendronate 70 mg tablet 70 mg PO WEEKLY Osteoporosis 03/14/25 06/30/25 History
brimonidine 0.15 % eye drops 1 drp BOTH EYES TID Eye Condition 03/14/25 06/30/25 History
carbamazepine 200 mg 400 mg PO BID Neurological 03/14/25 06/30/25 History
tablet,extended release,12 hr Condition
(Tegretol XR)
carbidopa 25 mg tablet 25 mg PO Q8H PRN nausea 03/14/25 06/30/25 History
carbidopa 25 mg-levodopa 100 mg 2 tab PO TID Neurological Condition 03/14/25 06/30/25 History
tablet
losartan 25 mg tablet 25 mg PO DAILY Blood Pressure 03/14/25 06/30/25 History
simvastatin 20 mg tablet 20 mg PO HS High Cholesterol 03/14/25 06/30/25 History
travoprost 0.004 % eye drops 1 drp BOTH EYES HS Eye Condition 03/14/25 06/30/25 History
duloxetine 60 mg capsule,delayed 60 mg PO DAILY Mental 06/30/25 06/30/25 History
release Health/Anxiety
methenamine hippurate 1 gram tablet 1 g PO BID Infection 06/30/25 06/30/25 History
metronidazole 500 mg tablet 500 mg PO Q8H Infection 06/30/25 06/30/25 History
quetiapine 25 mg tablet 25 mg PO HS Mental Health/Anxiety 06/30/25 06/30/25 History
sennosides 8.6 mg-docusate sodium 1 tab-cap PO HS PRN constipation 06/30/25 06/30/25 History
50 mg tablet (Senna with Docusate
Sodium)
Review of Systems
-
Unable to obtain full review of systems at this time due to: Dementia
History Source: Patient
Physical Exam
Vital Signs
Temp Pulse Resp BP Pulse Ox
99.0 F 86 18 121/62 95
07/01/25 08:00 07/01/25 08:00 07/01/25 08:00 07/01/25 08:00 07/01/25 11:04
Lab Results
07/01/25 06:42
07/01/25 06:42
Gdd-S-Mkimsmwbicv Pept 3050 pg/ml 06/30/25 06:28
Physical Exam
General: Well Developed, Well Nourished, No Apparent Distress and Comfortable
HEENT: Normocephalic, Anicteric and Moist Mucous Membranes
Respiratory: Clear and Non Labored Respirations
Cardiac: S1/S2, Regular Rhythm and Murmur
Breast: Deferred by me
GI: Soft, Non Tender, Non Distended and Normal Bowel Sounds
Rectal: Deferred by Provider
Genito-urinary: No Costovertebral Tender
Musculoskeletal: No Clubbing, No Cyanosis and Edema (+2 B/L LE)
Skin: Warm and Dry
Neuro: Awake
Hematologic/Lymphatic: No Lymphadenopathy
Psych: Calm
Impression / Plan
-
I/P: 79M with HTN, HLD, Parkinson's disease, dementia, epilepsy, & BPH with prior obstructive uropathy presented to the emergency room yesterday with a chief complaint of confusion.
Primary stopper grinder: Dr. Smallwood, [facility] - Records requested
HFrEF (LVEF 30-35%), chronicity unknown
- TTE with circumflex/RCA territory wall motion abnormalities
- Bilateral lower extremity edema. Tubigrips ordered.
- GDMT as tolerated:
-GENET/ARB/ARNI: Losartan currently on hold due to orthostatic hypotension
-SGLT2 inhibitor: None due to recent UTI
-Aldosterone agonist: Start spironolactone 12.5 mg daily
-Beta adriana: Await response to MRA
-Isosorbide/Hydralazine:�Not currently indicated
-ICD: Not currently indicated, follow-up with primary stopper grinder
- Trend daily weight, I/O, and BMP
Orthostatic hypotension
- Likely in the setting of Parkinson's disease
- No longer on midodrine
- No documented orthostatic vital signs, ordered
Mitral regurgitation, severe
- TTE with posterior leaflet prolapse with moderate to severe eccentric MR
- This is a chronic finding
Hypertension, chronic, stable
Parkinson's disease, chronic, stable
Dementia, chronic and stable
SUBJECTIVE:
Sitting comfortably in chair. Not short of breath.
DATA:
Transthoracic echocardiogram, 06/30/2025:
SUMMARY
1. Dilated LV with moderately reduced systolic function.
2. LVEF is 30-35% by visual estimation. Circumflex/RCA territory wall motion abnormalities.
3. Dilated RV with normal systolic function.
4. Mild aortic regurgitation.
5. Posterior leaflet prolapse with moderate to severe eccentric mitral regurgitation.
6. Mild to moderate tricuspid regurgitation. Estimated PASP is 30 mmHg.
7. No prior study available for comparison.
Transthoracic echocardiogram, 09/15/2024:
LVEF 55-60%. Grade 1 DD.
Mild inferior wall hypokinesis.
Moderate mitral valve prolapse.
Moderate to severe mitral regurgitation.
Moderate tricuspid regurgitation. PASP 35-40 mmHg.
Trileaflet AV. Mild aortic regurgitation. Mild aortic root dilation
Data Reviewed
-
EKG: Report Reviewed by me (Sinus tachycardia, bifascicular block, rate 106)
Medical Tests (Nuc Med, Echo etc): Report Reviewed by me
Labs: Labs Reviewed by me
Old Records: Requested
--- NOTE | 2025-07-01 13:35 | CM ---
CM reviewed chart, care ongoing.
Cardiology consulted.
Patient remains on IV antibiotics.
Pt recommendation of home health.
CM spoke with liaison from [place], anticipated Discharge: > 48 hours. Updated clinicals placed in [facility].
CM will continue to follow.
Plan; home with JESUS QUIGLEY
[2025-07-01] MEDS: ALDACTONE 12.5 MG PO (15:42)
[2025-07-01 15:43] VITALS: BP 127/68
[2025-07-01] MEDS: LIPITOR 10 MG PO (21:46)
[2025-07-01] MEDS: SEROQUEL 25 MG PO (21:46)
[2025-07-01] MEDS: XALATAN OPHTHALMIC SOLUTION 1 DROP BOTH EYES (21:47)
[2025-07-01 23:36] VITALS: BP 126/64
[2025-07-02 06:00] VITALS: BMI 23.4
[2025-07-02] MEDS: STERILE WATER FOR INJECTION 10 ML IV ×3 (06:16→22:23)
[2025-07-02] MEDS: MAXIPIME 2000 MG IV ×3 (06:16→22:23)
[2025-07-02 07:39] VITALS: BP 146/74
[2025-07-02 07:42] LABS: Hematocrit 34.4 % (39.0-52.0); Hemoglobin 11.2 g/dL (13.0-18.0); Mean Corp Hgb Conc. 32.6 g/dL (33.0-37.0); Mean Corpuscular Volume 91.0 fL (80.0-94.0); Nucleated Red Blood Cells % 0 % (-); Platelet Count 186 10^3/uL (130-400); Red Cell Dist. Width 14.6 % (11.5-14.5)
[2025-07-02 07:49] LABS: Blood Urea Nitrogen 17 mg/dl (9-20); Calcium 8.7 mg/dl (8.4-10.2); Carbon Dioxide 26 mmol/L (22-30); Chloride 103 mmol/L (98-107); Estimated Creatinine Clearance 98 ml/min; Glucose 105 mg/dl (70-99); Potassium 3.6 mmol/L (3.5-5.1); Sodium 133 mmol/L (135-145); eGFR > 60.00
[2025-07-02] MEDS: ALDACTONE 12.5 MG PO (09:05)
[2025-07-02] MEDS: CYMBALTA DELAYED RELEASE 60 MG PO (09:05)
[2025-07-02] MEDS: TYLENOL 650 MG PO ×2 (09:05→20:22)
[2025-07-02] MEDS: HEPARIN 5000 UNITS SC ×2 (09:06→20:21)
[2025-07-02] MEDS: SINEMET 25-100 2 TABLET PO ×3 (09:06→22:22)
[2025-07-02] MEDS: COZAAR 25 MG PO (09:06)
[2025-07-02] MEDS: TEGRETOL XR (EXTENDED RELEASE) 400 MG PO ×2 (09:06→20:22)
[2025-07-02] MEDS: ALPHAGAN 0.2% EYE DROPS 1 DROP BOTH EYES ×3 (09:07→22:21)
[2025-07-02] MEDS: ASPIR LOW (ENTERIC COATED) PO (09:07)
[2025-07-02] MEDS: DESENEX/MITRAZOL/ZEASORB 1 APPLIC TOPICAL ×2 (09:12→20:23)
--- NOTE | 2025-07-02 10:31 | W.PN.HOSP.TC ---
Today's Communication/Plan
-
Check EKG for QTc
Goal-directed medical therapy
Monitor bowel movements
Start probiotics
Assessment / Plan
Assessment / Plan
General: resting in bed comfortably
HEENT: Other (Dry MM. Neck supple.)
Respiratory: Other (Decreased at bases - otherwise clear.)
Cardiac: S1/S2, Tachycardia and Murmur (III/ MARY ANN)
GI: Soft, Non Tender, Non Distended and Normal Bowel Sounds
Musculoskeletal: No Clubbing, No Cyanosis and bilateral lower extremity edema nonpitting.
Neuro: Awake and Alert; No Oriented
A/P: Patient is an 79y M with PMH significant for Parkinson's disease with dementia and recent issues with JENKINS / recurrent UTI who presents to ED from home for evaluation of weakness and confusion.
Pseudomonas urinary tract infection
Acute TME secondary to the above
Sepsis secondary to the above
BPH w/LUTS
- UA consistent with infection and h/o similar previous presentations. Evidence of organ impairment in form of acute TME.
- Patient recently had Pseudomonas infection at [facility]
- Bladder scan protocol and monitor closely for any retention given prior issues - though he is s/p HoLEP since that time.
- Straight cath +/- Rios (likely the latter) if needed.
- No tamsulosin given known orthostasis.
- Follow for clinical improvement.
-Urine culture finalized with Pseudomonas. Check EKG for QTc monitoring. Continue cefepime for now. Add probiotic.
Acute on Chronic Hyponatremia
Edema-per family edema has improved
- TEDs stockings / elevation.
- Fluid restriction.
- Sodium improved. Compression therapy.
-
HFrEF unclear chronicity
- Patient follows with Dr. Mckay and recently seen him in the office
- Outpatient records requested. Per spouse patient has 'leaky valve.'
- ECHO with Dilated left ventricle with moderately reduced systolic function. EF of 30 to 35%. Circumflex/RCA territory wall motion abnormality. Dilated right ventricle with normal systolic function moderate to severe eccentric mitral
regurgitation. Moderate tricuspid regurgitation. Estimated PASP 30 mmHg.
- Not on diuretics as outpatient. proBNP 3050. Unclear baseline. Was not placed on diuretics as outpatient due to urinary urgency/orthostasis .
- Reduction in ejection fraction new finding. Continue with aspirin, statin. Losartan. Aldactone added by cardiology. Will need close monitoring with outpatient cardiology.
Diarrhea-
- ? abx-associated diarrhea .
- If with persistent loose stools can consider rechecking for C. difficile. Probiotic added.
Normocytic Anemia with JERRY
- Hgb somewhat decreased from baseline - likely secondary to recent blood loss event with hematuria / clots post-HoLEP (mid-May).
- Started IV iron
- Follow H&H for changes.
Parkinson's Disease with Dementia
Orthostatic Hypotension
- Continue current carbidopa dosing with no changes.
- Follow orthostatic signs - was previously on midodrine.
- TEDs stockings, etc as noted above.
- Follow for acute delirium / agitation during hospital stay.
- Continue usual HS quetiapine.
DVT prophylaxis: Subcut heparin
Code Status: DNR
Discussed with spouse over the phone in details
Anticipated Discharge: Within 24 hours
Subjective/Interval History
-
Date of Service: July 02, 2025
states of loose bowel movements overnight x 2
Objective Data
-
Labs:
Laboratory Results
07/02/25
06:33
WBC 4.9
Hgb 11.2 L
Hct 34.4 L
Plt Count 186 D
Sodium 133 L
Potassium 3.6
Chloride 103
Carbon Dioxide 26
BUN 17
Creatinine 0.7
Glucose 105 H
Calcium 8.7
Vital Signs:
Vital Signs
Temp Pulse Resp BP Pulse Ox
97.8 F 87 18 146/74 98
07/02/25 07:39 07/02/25 07:39 07/02/25 07:39 07/02/25 07:39 07/02/25 07:39
I&O
07/01/25 07/02/25 07/03/25
06:59 06:59 06:59
Intake Total 480 / 480 610 / 610
Output Total 1400 / 1400 150 / 150
Balance -920 / -920 460 / 460
[2025-07-02] MEDS: VISBIOME 2 CAP PO (10:44)
[2025-07-02] MEDS: FERRLECIT 110 MG IV (14:27)
[2025-07-02 15:50] VITALS: BP 121/62
--- NOTE | 2025-07-02 16:23 | W.PN.CD ---
Today's Communication / Plan
-
conitnue current medications
follow up with op cardiology in 7-10 days
faxed echo report to op cards at his request
Impression / Plan
-
I/P: 79M with HTN, HLD, Parkinson's disease, dementia, epilepsy, & BPH with prior obstructive uropathy presented to the emergency room yesterday with a chief complaint of confusion.
Primary riveter pneumatic: Dr. Smallwood, [facility] - Records requested
HFrEF (LVEF 30-35%), chronicity unknown
- TTE with circumflex/RCA territory wall motion abnormalities
-no cp, no sob, suspect due to valvular heart disease. Will comorbidities and no sx, would not offer acute invasive evaluation at this time, defer to long time op team.
- Bilateral lower extremity edema. Tubigrips ordered.
- GDMT as tolerated:
-GENET/ARB/ARNI: Losartan currently on hold due to orthostatic hypotension
-SGLT2 inhibitor: None due to recent UTI
-Aldosterone agonist: Start spironolactone 12.5 mg daily--repeat renal profile in 1week/3 weeks/3 months
-Beta adriana: Await response to MRA
-Isosorbide/Hydralazine:�Not currently indicated
-ICD: Not currently indicated, follow-up with primary riveter pneumatic
- Trend daily weight, I/O, and BMP
Orthostatic hypotension
- states this is overstated
-monitor with MRA.
Mitral regurgitation, severe
- TTE with posterior leaflet prolapse with moderate to severe eccentric MR
- This is a chronic finding
-f/u with op cardiology---echo report sent to the office
Hypertension, chronic, stable
Parkinson's disease, chronic, stable
Dementia, chronic and stable
SUBJECTIVE:
Sitting comfortably in chair. Not short of breath. No cp
DATA:
Transthoracic echocardiogram, 06/30/2025:
SUMMARY
1. Dilated LV with moderately reduced systolic function.
2. LVEF is 30-35% by visual estimation. Circumflex/RCA territory wall motion abnormalities.
3. Dilated RV with normal systolic function.
4. Mild aortic regurgitation.
5. Posterior leaflet prolapse with moderate to severe eccentric mitral regurgitation.
6. Mild to moderate tricuspid regurgitation. Estimated PASP is 30 mmHg.
7. No prior study available for comparison.
Transthoracic echocardiogram, 09/15/2024:
LVEF 55-60%. Grade 1 DD.
Mild inferior wall hypokinesis.
Moderate mitral valve prolapse.
Moderate to severe mitral regurgitation.
Moderate tricuspid regurgitation. PASP 35-40 mmHg.
Trileaflet AV. Mild aortic regurgitation. Mild aortic root dilation
Physical Exam
Vital Signs/Labs
Vital Signs
Temp Pulse Resp BP Pulse Ox
97.9 F 90 17 121/62 95
07/02/25 15:50 07/02/25 15:50 07/02/25 15:50 07/02/25 15:50 07/02/25 15:50
07/01/25 07/02/25 07/03/25
06:59 06:59 06:59
Actual Weight 180 lb 1.6 oz 182 lb 8 oz
07/02/25 06:33
07/02/25 06:33
06/30/25
06:28
Knu-C-Yumusrsumrx Pept 3050
Physical Exam
Constitutional: No acute distress
Cardiovascular: Rhythm & rate is regular, Systolic murmur present (2/6 hsm) and Other (tubigrips on )
Respiratory: Respiratory effort normal, Lungs clear to auscul., Wheeze Absent, Crackles Absent and Rhonchi Absent
Neuro/Psych: AO x 3
Data Reviewed
-
Date of Service: July 02, 2025
Medical Decision Making: Review of Case with other Provider (no new reccs, will sign off --Dr Vigil)
[2025-07-02] MEDS: XALATAN OPHTHALMIC SOLUTION 1 DROP BOTH EYES (22:21)
[2025-07-02] MEDS: LIPITOR 10 MG PO (22:22)
[2025-07-02] MEDS: SEROQUEL 25 MG PO (22:22)
[2025-07-02 23:49] VITALS: BP 129/59
[2025-07-03 03:05] VITALS: BP 114/59; BP 127/64; BP 144/64; PULSE 85; PULSE 92; PULSE 94
[2025-07-03 05:10] VITALS: BMI 23.3
[2025-07-03] MEDS: STERILE WATER FOR INJECTION 10 ML IV ×3 (06:03→21:27)
[2025-07-03] MEDS: MAXIPIME 2000 MG IV ×2 (06:03→13:06)
[2025-07-03 07:20] LABS: Hematocrit 32.6 % (39.0-52.0); Hemoglobin 10.2 g/dL (13.0-18.0); Mean Corp Hgb Conc. 31.3 g/dL (33.0-37.0); Mean Corpuscular Volume 93.9 fL (80.0-94.0); Nucleated Red Blood Cells % 0 % (-); Platelet Count 173 10^3/uL (130-400); Red Cell Dist. Width 14.6 % (11.5-14.5)
[2025-07-03 07:48] LABS: Blood Urea Nitrogen 17 mg/dl (9-20); Calcium 8.4 mg/dl (8.4-10.2); Carbon Dioxide 27 mmol/L (22-30); Chloride 103 mmol/L (98-107); Estimated Creatinine Clearance 114 ml/min; Glucose 100 mg/dl (70-99); Potassium 3.6 mmol/L (3.5-5.1); Sodium 136 mmol/L (135-145); eGFR > 60.00
[2025-07-03 08:00] VITALS: BP 145/78
[2025-07-03] MEDS: VISBIOME 2 CAP PO (09:27)
[2025-07-03] MEDS: ALDACTONE 12.5 MG PO (09:27)
[2025-07-03] MEDS: ALPHAGAN 0.2% EYE DROPS 1 DROP BOTH EYES ×3 (09:27→21:25)
[2025-07-03] MEDS: COZAAR 25 MG PO (09:28)
[2025-07-03] MEDS: SINEMET 25-100 2 TABLET PO ×3 (09:28→21:27)
[2025-07-03] MEDS: CYMBALTA DELAYED RELEASE 60 MG PO (09:28)
[2025-07-03] MEDS: TEGRETOL XR (EXTENDED RELEASE) 400 MG PO ×2 (09:28→21:25)
[2025-07-03] MEDS: HEPARIN 5000 UNITS SC ×2 (09:28→21:24)
[2025-07-03] MEDS: ASPIR LOW (ENTERIC COATED) 81 MG PO (09:28)
[2025-07-03] MEDS: DESENEX/MITRAZOL/ZEASORB 1 APPLIC TOPICAL ×2 (09:31→21:24)
--- NOTE | 2025-07-03 11:15 | W.PN.HOSP.TC ---
Today's Communication/Plan
-
ID input
Continue with cefepime
Continue probiotic
Monitor blood pressure
Assessment / Plan
Assessment / Plan
General: Sitting in chair
HEENT: Other (Dry MM. Neck supple.)
Respiratory: CTA anterior
Cardiac: S1/S2, and Murmur (III/ MARY ANN)
GI: Soft, Non Tender, Non Distended and Normal Bowel Sounds
Musculoskeletal: No Clubbing, No Cyanosis and bilateral lower extremity edema nonpitting.
Neuro: Awake and Alert; No Oriented
A/P: Patient is an 79y M with PMH significant for Parkinson's disease with dementia and recent issues with JENKINS / recurrent UTI who presents to ED from home for evaluation of weakness and confusion.
Pseudomonas urinary tract infection
Acute TME secondary to the above
Sepsis secondary to the above
BPH w/LUTS
- UA consistent with infection and h/o similar previous presentations. Evidence of organ impairment in form of acute TME.
- Patient recently had Pseudomonas infection at [facility] and per spouse was only treated for possibly between 3 to 5 days only
- Bladder scan protocol and monitor closely for any retention given prior issues - though he is s/p HoLEP since that time.
- Straight cath +/- Rios (likely the latter) if needed.
- No tamsulosin given known orthostasis.
- Follow for clinical improvement.
- Urine culture finalized with Pseudomonas. EKG with prolonged QTc. Patient with history of prolonged Qtc. Discussed with cardiology Dr. Edward on patient with prolonged QTc especially with history of conduction disease. Recommend
to avoid additional QTc prolonging meds.
- Will ask infectious disease for input. May require IV antibiotics on discharge.
Acute on Chronic Hyponatremia
Edema-per family edema has improved
- TEDs stockings / elevation.
- Fluid restriction.
- Sodium improved. Compression therapy.
-
HFrEF unclear chronicity
- Patient follows with Dr. Mckay and recently seen him in the office
- Outpatient records requested. Per spouse patient has 'leaky valve.'
- ECHO with Dilated left ventricle with moderately reduced systolic function. EF of 30 to 35%. Circumflex/RCA territory wall motion abnormality. Dilated right ventricle with normal systolic function moderate to severe eccentric mitral
regurgitation. Moderate tricuspid regurgitation. Estimated PASP 30 mmHg.
- Not on diuretics as outpatient. proBNP 3050. Unclear baseline. Was not placed on diuretics as outpatient due to urinary urgency/orthostasis .
- Reduction in ejection fraction new finding. Continue with aspirin, statin. Losartan. Aldactone added by cardiology. Will need close monitoring with outpatient cardiology. BP 145/78. Monitor closely with history of Parkinson's.
Diarrhea-seems to have improved with probiotics.
- ? abx-associated diarrhea .
- If with persistent loose stools can consider rechecking for C. difficile. Probiotic added.
Normocytic Anemia with JERRY
- Hgb somewhat decreased from baseline - likely secondary to recent blood loss event with hematuria / clots post-HoLEP (mid-May).
- Started IV iron
- Follow H&H for changes.
Parkinson's Disease with Dementia
Orthostatic Hypotension
- Continue current carbidopa dosing with no changes.
- Follow orthostatic signs - was previously on midodrine.
- TEDs stockings, etc as noted above.
- Follow for acute delirium / agitation during hospital stay.
- Continue usual HS quetiapine.
DVT prophylaxis: Subcut heparin
Code Status: DNR
Discussed with spouse over the phone in details and answered multiple questions to her satisfaction.
Anticipated Discharge: Within 24 hours
Subjective/Interval History
-
Date of Service: July 03, 2025
No bowel movements overnight into this morning
Objective Data
-
Labs:
Laboratory Results
07/03/25
06:56
WBC 4.4 L
Hgb 10.2 L
Hct 32.6 L
Plt Count 173
Sodium 136
Potassium 3.6
Chloride 103
Carbon Dioxide 27
BUN 17
Creatinine 0.6 L
Glucose 100 H
Calcium 8.4
Vital Signs:
Vital Signs
Temp Pulse Resp BP Pulse Ox
97.4 F 90 16 145/78 98
07/03/25 08:00 07/03/25 09:28 07/03/25 08:00 07/03/25 09:28 07/03/25 08:00
I&O
07/02/25 07/03/25 07/04/25
06:59 06:59 06:59
Intake Total 610 / 610 961 / 961
Output Total 150 / 150 680 / 680
Balance 460 / 460 281 / 281
Data Reviewed
-
Total Time Spent with Patient (in minutes): 55
[2025-07-03] MEDS: FERRLECIT 110 MG IV (13:05)
[2025-07-03 14:55] VITALS: BP 123/60
[2025-07-03] MEDS: TYLENOL 650 MG PO (15:34)
--- NOTE | 2025-07-03 17:17 | CON.ID ---
Consultation
-
Date/Time Consultation Requested: July 03, 2025 1121
Date/Time Consultation Performed: July 03, 2025 171
Requesting Provider: Dr. Jorden Vigil
Performing Provider: Dr. Clarisse Hester
Reason for Consultation: UTI
Chief Complaint / Past History
Chief Complaint
Confusion and weakness
History of Present Illness
History obtained predominantly from the patient's at bedside. He is an 79-year-old male with Parkinson's, dementia, BPH, recurrent UTI who presented to the hospital June 29 due to confusion and lower extremity weakness. Per he was
hospitalized at [facility] May 07 to May for with Pseudomonas UTI. On May 11, he underwent minimally invasive resection of the prostate. He was treated with cefepime x 7 days. He then returned to the hospital due to gross
hematuria with clot retention requiring Rios placement. He did fail voiding trial at 1 point. Eventually the Rios was removed 1 week ago. Patient then developed confusion and lower extremity weakness which are symptoms of his UTI. He was
started on cefepime. Pseudomonas sensitive to Cipro. However QTc is prolonged and cardiology recommended against fluoroquinolones. Patient complains of diarrhea while on cefepime. No bowel movements today. His confusion is not back to baseline
per .
Past History
Additional Past Medical History:
Parkinson's Disease with Orthostasis
Dementia
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
Urinary Retention
Glaucoma
Allergy History:
lorazepam Allergy (Verified 06/29/25 23:09)
Unknown
Medications Reviewed: Yes
Current Antibiotics:
Cefepime day 4
Social History
Tobacco: Non-Smoker
Alcohol: None
Drug: None
Living: With Family
Family History
Family History: Not Pertinent
Review of Systems
Review of Systems
General: Negative Fever, Chills or Change in Appetite
HEENT: Negative Sinus Problems or Headache
Cardiovascular: Negative Chest Pain
Respiratory: Negative Dyspnea or Cough
Gasteroenterology: Diarrhea; Negative Nausea or Vomiting
Genital / Urological: Negative Dysuria or Flank Pain
Endocrine: Weakness
All systems: All other systems were reviewed and were negative
Vital Signs
Temp Pulse Resp BP Pulse Ox
97.7 F 85 17 123/60 96
07/03/25 14:55 07/03/25 14:55 07/03/25 14:55 07/03/25 14:55 07/03/25 14:55
Physical Exam
Physical Exam
Constitutional: Comfortable and Non-toxic
Cardiovascular: Regular Rate and S1/S2
Pulmonary: Clear
Gastrointestinal: Soft, Non Tender and Non Distended
Genito-Urinary: Negative Suprapubic Tenderness or CVA Tenderness
Extremities: Negative Edema
Neurological: Awake and Alert
Lab / Diagnostic Study Results
07/03/25 06:56
07/03/25 06:56
Abs Immat Gran (auto) 0.0 10^3/uL (0-0.05) 07/03/25 06:56
Absolute Neuts (auto) 2.5 10^3/uL (1.4-6.5) 07/03/25 06:56
Absolute Lymphs (auto) 1.2 10^3/uL (1.2-3.4) 07/03/25 06:56
Absolute Monos (auto) 0.5 10^3/uL (0.1-0.6) 07/03/25 06:56
Absolute Basos (auto) 0.0 10^3/uL (0-0.2) 07/03/25 06:56
Immature Gran % 0.5 % (0-0.5) 07/03/25 06:56
Neutrophils % 56.3 % (42.2-75.2) 07/03/25 06:56
Lymphocytes % 26.6 % (20.5-51.1) 07/03/25 06:56
Monocytes % 12.4 % (1.7-9.3) H 07/03/25 06:56
Eosinophils % 3.7 % (0-6) 07/03/25 06:56
Basophils % 0.5 % (0-2) 07/03/25 06:56
Lactic Acid 1.1 mmol/L (0.7-2.0) 06/30/25 00:09
Ur Squamous Epith Cells 0-2 /LPF (Few) 06/29/25 22:48
Microbiology Results
Micro:
07/01/25 09:30 Salmonella/Shigella Culture - Final
Feces/Stool No Salmonella, Shigella, Aeromonas or Plesiomonas species
isolated.
Campylobacter Culture - Final
No Campylobacter species isolated.
Shiga Toxin Test - Pending
06/29/25 22:48 Urine Culture - Final
Urine Pseudomonas aeruginosa
SPEC #: [id number] DANAE: 06/29/25 STATUS: COMP REQ #: [id number]
RECD: 06/29/[address]: Arlet Becerril DO
SOURCE: URINE ENTR: 06/29/[address] [facility] [address]: Dept Physician Emergency
SPDESC: Miguel Aguilar MD
ORDERED: Urine Culture
QUERIES: Date Specimen was Collected 06/29/25
Time Specimen was Collected 2223
Procedure Result Verified
Urine Culture Final 07/02/25
CC: 80,000 CFU/ML Pseudomonas aeruginosa
Organism 1 Pseudomonas aeruginosa
1. Pseudomonas aeruginosa
M.I.C. RX
--------- ---
Aztreonam 8 S
Cefepime 4 S
Ceftazidime 4 S
Ciprofloxacin <=0.25 S
Meropenem <=1 S
Piperacillin/Tazobactam <=8 S
Tobramycin <=2 S
Assessment / Plan
# Pseudomonas UTI
# BPH s/p recent HoLEP 05/11/25
# Encephalopathy - not back to baseline. Possibly due to cefepime
# Diarrhea - suspect abx associated
# Prolonged QTc >510
# Parkinson's
# Dementia
-DC cefepime (d4) - may contribute to confusion
- Unable to use FQ due to prolonged QTc
- Use ceftazidime [id number] to complete 7d total course of abx through 07/07/25 6AM, then dc home.
Of note, cannot administer home IV abx.
- Check for C. diff if diarrhea recurs.
[2025-07-03] MEDS: LIPITOR 10 MG PO (21:26)
[2025-07-03] MEDS: FORTAZ 2000 MG IV (21:26)
[2025-07-03] MEDS: SEROQUEL 25 MG PO (21:27)
[2025-07-03] MEDS: XALATAN OPHTHALMIC SOLUTION 1 DROP BOTH EYES (21:27)
[2025-07-03 23:05] VITALS: BP 127/64
[2025-07-04] MEDS: TYLENOL 650 MG PO ×2 (00:17→05:18)
[2025-07-04] MEDS: FORTAZ 2000 MG IV ×3 (05:20→21:55)
[2025-07-04] MEDS: STERILE WATER FOR INJECTION 10 ML IV ×3 (05:20→21:56)
[2025-07-04 05:22] VITALS: BMI 23.2
[2025-07-04 06:20] LABS: Hematocrit 34.9 % (39.0-52.0); Hemoglobin 11.3 g/dL (13.0-18.0); Mean Corp Hgb Conc. 32.4 g/dL (33.0-37.0); Mean Corpuscular Volume 88.8 fL (80.0-94.0); Nucleated Red Blood Cells % 0 % (-); Platelet Count 221 10^3/uL (130-400); Red Cell Dist. Width 14.4 % (11.5-14.5)
[2025-07-04 06:30] LABS: Blood Urea Nitrogen 15 mg/dl (9-20); Calcium 9.2 mg/dl (8.4-10.2); Carbon Dioxide 29 mmol/L (22-30); Chloride 101 mmol/L (98-107); Estimated Creatinine Clearance 97 ml/min; Glucose 98 mg/dl (70-99); Potassium 4.0 mmol/L (3.5-5.1); Sodium 136 mmol/L (135-145); eGFR > 60.00
[2025-07-04 08:14] VITALS: BP 139/65
[2025-07-04] MEDS: VISBIOME 2 CAP PO (08:17)
[2025-07-04] MEDS: ASPIR LOW (ENTERIC COATED) 81 MG PO (08:18)
[2025-07-04] MEDS: TEGRETOL XR (EXTENDED RELEASE) 400 MG PO ×2 (08:18→20:46)
[2025-07-04] MEDS: COZAAR 25 MG PO (08:18)
[2025-07-04] MEDS: ALDACTONE 12.5 MG PO (08:18)
[2025-07-04] MEDS: SINEMET 25-100 2 TABLET PO ×3 (08:18→21:55)
[2025-07-04] MEDS: HEPARIN 5000 UNITS SC ×2 (08:19→20:47)
[2025-07-04] MEDS: CYMBALTA DELAYED RELEASE 60 MG PO (08:19)
[2025-07-04] MEDS: ALPHAGAN 0.2% EYE DROPS 1 DROP BOTH EYES ×3 (08:20→22:13)
[2025-07-04] MEDS: DESENEX/MITRAZOL/ZEASORB 1 APPLIC TOPICAL ×2 (08:23→20:51)
--- NOTE | 2025-07-04 10:53 | W.PN.HOSP.TC ---
Today's Communication/Plan
-
cont ABx
Assessment / Plan
Assessment / Plan
79yo M with PMHx of Parkinsons, orthostatic hypotension, OP, glaucoma, HLD, urinary retention previously with Rios removed 2 weeks days ago, HoLEP on 05/11/25 came with urinary frequency, b/l LE weakness and confusion. found recurrent UTI with
Pseudomonas.
A/P:
#Weakness, acute metabolic encephalopathy, urinary frequency 2/2 UTI with pseudomonas
#Parkinsons dementia with episodes of delirium
#Iatrogenic acute toxic metabolic encephalopathy, cannot r/o 2/[address] in Mar 2025 [facility] nephrolithiasis
Patient without urinary retetnion - cont to follow
Cefepime switched to Ceftazidime as per ID on 07/04/25 - plan to complete caurse on 07/07/25. Family unable to administer at home. Arrangement of STR most likely will take some time, potentially leaving patient with 1-2 days of IV Abx only, so
cannot justify risk/benefit of outpatient treatment and midline placement at this time
Mentation and LE strength improving
Delirium 2/2 Parkinson and sundowning presented nightly on previous admission
with prolonged QTc - not candidate for antipsychotics
Concern for rebound delirium with BZD
advised frequent reorientations
#Diarrhea
2/2 Abx
check c.diff if reoccurs
#Proloinged QTc
avoid QT prolonging meds
#Traumatic olddisplaced L 7-8-9th ribs Fx
#traumatic old Non-displaced L 5-6th rib Fx
#Old traumatic Fx right lateral 9th, 10th, and 11th ribs
pain mgmt as needed
#Frequent falls with chronic ambulatory deficiency due to balance problems and orthostatic hypotension
As per family: midodrine PRN for SBP<150 mmHgb Rx by PCP
PT/OT
#Chronic constipation
#Anxiety d/o
#HLD
#Glaucoma
cont home meds
#Hyponatremia
2/2 volume overload
resolved with diuretics
#Reactive leukopenia
follow CBC
#JERRY
iron
#LE edema
#Heart murmur
#New diagnosis of HFrEF, possible ischemic CM with exacerbation
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
Echo EF 30-35%, mild-moderate TR
Cardio consult: known to patient and already followed by outpatient physician
DIuretics statred. BMP in 1 week. Not candidate for SGLT2 inh with recurttent UTI
#Macrocytosis
resolved
DVT ppx hep
DNR/DNI - as discussed in detils ls with patient with the presence of and daughter
I have spent at least 51min reviewing chart, test results, communication with family and providing direct patient care
Anticipated Discharge: > 48 hours
Subjective/Interval History
-
Date of Service: July 04, 2025
Objective Data
-
Labs:
Laboratory Results
07/04/25
05:35
WBC 4.5 L
Hgb 11.3 L
Hct 34.9 L
Plt Count 221 D
Sodium 136
Potassium 4.0
Chloride 101
Carbon Dioxide 29
BUN 15
Creatinine 0.7
Glucose 98
Calcium 9.2
Vital Signs:
Vital Signs
Temp Pulse Resp BP Pulse Ox
97.4 F 91 18 139/65 100
07/04/25 08:14 07/04/25 08:18 07/04/25 08:14 07/04/25 08:18 07/04/25 10:14
I&O
07/03/25 07/04/25 07/05/25
06:59 06:59 06:59
Intake Total 961 / 961 1620 / 1620
Output Total 680 / 680 520 / 520
Balance 281 / 281 1100 / 1100
Review of Systems
-
History Source: Patient
All other systems: Reviewed and negative
Physical Exam
-
General: No Apparent Distress
HEENT: Normocephalic and Hearing Impaired
Respiratory: Clear to Auscultation
Cardiac: Regular Rhythm and Murmur
GI: Soft, Nontender and Nondistended
Musculoskeletal: No Clubbing, No Cyanosis and No Edema
Neuro: Awake, Alert, Oriented and AO x 3
Psych: Calm
[2025-07-04] MEDS: FERRLECIT 110 MG IV (13:29)
--- NOTE | 2025-07-04 15:29 | CM ---
CM reviewed chart- ADC >48 hours
Plan to finish abx through 07/07 and then dc home with [facility] and 03/03 caregivers
CM will continue to follow for dc planning
Discharge Disposition- home with [facility] and 03/03 caregivers
[2025-07-04 15:40] VITALS: BP 118/63
--- NOTE | 2025-07-04 15:49 | W.PN.ID1 ---
Date of Service
Date of Service: July 04, 2025
Today's Communication
Continue ceftazidime [id number] to complete 7d total course of abx through 07/07/25 6AM,
Assessment / Plan
# Pseudomonas UTI
# BPH s/p recent HoLEP 05/11/25
# Encephalopathy - Possibly due to cefepime
# Prolonged QTc >510
# Parkinson's
# Dementia
-cefepime dc'd on day 4 - may contribute to confusion
- Unable to use FQ due to prolonged QTc
- Continue ceftazidime [id number] to complete 7d total course of abx through 07/07/25 6AM, then dc home.
Of note, cannot administer home IV abx.
Chief Complaint
-: UTI
Subjective / Review of Systems
No diarrhea.
Per was confused last night.
Vital Signs / Physical Exam
Vital Signs
Vital Signs
Temp Pulse Resp BP Pulse Ox
97.4 F 91 18 139/65 100
07/04/25 08:14 07/04/25 08:18 07/04/25 08:14 07/04/25 08:18 07/04/25 10:14
Physical Exam
Constitutional: No Acute Distress and Comfortable
Cardiovascular: Regular Rate and S1/S2
Pulmonary: Clear
Gastrointestinal: Soft, Non Tender and Non Distended
Genito-Urinary: Negative CVA Tenderness
Extremities: Negative Edema
Neurological: Awake and Alert
Objective Data
Lab Data
Lab Results
07/04/25 05:35
07/04/25 05:35
Estimated Creat Clear 97 ml/min 07/04/25 05:35
Lactic Acid 1.1 mmol/L (0.7-2.0) 06/30/25 00:09
Total Bilirubin 0.5 mg/dl (0.2-1.3) 06/29/25 22:25
AST 11 U/L (17-59) L 06/29/25 22:25
ALT < 10 U/L (0-50) 06/29/25 22:25
Alkaline Phosphatase 86 U/L (38-126) 06/29/25 22:25
Most recent labs reviewed.
Micro Results:
07/01/25 09:30 Salmonella/Shigella Culture - Final
Feces/Stool No Salmonella, Shigella, Aeromonas or Plesiomonas species
isolated.
Campylobacter Culture - Final
No Campylobacter species isolated.
Shiga Toxin Test - Final
No E. coli Shiga Toxin 1 or 2 detected.
06/29/25 22:48 Urine Culture - Final
Urine Pseudomonas aeruginosa
SPEC #: [id number] DANAE: 06/29/25 STATUS: COMP REQ #: [id number]
RECD: 06/29/[address]: Arlet Becerril DO
SOURCE: URINE ENTR: 06/29/[address] [facility] [address]: Dept Physician Emergency
SPDESC: Jeff CHAMBERLAIN,Miguel Gupta
ORDERED: Urine Culture
QUERIES: Date Specimen was Collected 06/29/25
Time Specimen was Collected 2223
Procedure Result Verified
Urine Culture Final 07/02/25
CC: 80,000 CFU/ML Pseudomonas aeruginosa
Organism 1 Pseudomonas aeruginosa
1. Pseudomonas aeruginosa
M.I.C. RX
--------- ---
Aztreonam 8 S
Cefepime 4 S
Ceftazidime 4 S
Ciprofloxacin <=0.25 S
Meropenem <=1 S
Piperacillin/Tazobactam <=8 S
Tobramycin <=2 S
[2025-07-04 16:10] VITALS: BP 108/68; PULSE 85; O2SAT 98
[2025-07-04] MEDS: SEROQUEL 25 MG PO (21:57)
[2025-07-04] MEDS: COLACE 100 MG PO (21:57)
[2025-07-04] MEDS: LIPITOR 10 MG PO (21:57)
[2025-07-04] MEDS: XALATAN OPHTHALMIC SOLUTION 1 DROP BOTH EYES (21:57)
[2025-07-04 23:40] VITALS: BP 109/66; BP 127/66; BP 131/56; PULSE 100; PULSE 103; PULSE 80
[2025-07-05 00:47] VITALS: BP 109/66; BP 127/66; BP 131/56; PULSE 100; PULSE 103; PULSE 80
[2025-07-05 05:11] VITALS: BMI 23.2
[2025-07-05] MEDS: STERILE WATER FOR INJECTION 10 ML IV ×3 (06:27→21:57)
[2025-07-05] MEDS: FORTAZ 2000 MG IV ×3 (06:27→21:56)
[2025-07-05 08:38] VITALS: BP 128/56
[2025-07-05] MEDS: VISBIOME 2 CAP PO (08:55)
[2025-07-05] MEDS: MIRALAX 17 GRAMS PO (08:55)
[2025-07-05] MEDS: COLACE 100 MG PO (08:55)
[2025-07-05] MEDS: COZAAR 25 MG PO (08:55)
[2025-07-05] MEDS: SINEMET 25-100 2 TABLET PO ×3 (08:55→21:56)
[2025-07-05] MEDS: ASPIR LOW (ENTERIC COATED) 81 MG PO (08:56)
[2025-07-05] MEDS: CYMBALTA DELAYED RELEASE 60 MG PO (08:56)
[2025-07-05] MEDS: TEGRETOL XR (EXTENDED RELEASE) 400 MG PO ×2 (08:56→20:22)
[2025-07-05] MEDS: ALDACTONE 12.5 MG PO (08:56)
[2025-07-05] MEDS: ALPHAGAN 0.2% EYE DROPS 1 DROP BOTH EYES ×3 (08:56→21:56)
[2025-07-05] MEDS: HEPARIN 5000 UNITS SC ×2 (08:57→20:22)
[2025-07-05] MEDS: DESENEX/MITRAZOL/ZEASORB 1 APPLIC TOPICAL ×2 (08:58→20:25)
--- NOTE | 2025-07-05 10:17 | W.PN.ID1 ---
Date of Service
Date of Service: July 05, 2025
Today's Communication
Continue ceftazidime.
Assessment / Plan
# Pseudomonas UTI
# BPH s/p recent HoLEP 05/11/25
# Encephalopathy - Possibly due to cefepime
# Prolonged QTc >510
# Parkinson's
# Dementia
-cefepime dc'd on day 4 - may contribute to confusion
- Unable to use FQ due to prolonged QTc
- Continue ceftazidime [id number] to complete 7d total course of abx through 07/07/25 6AM dose, then dc home.
Discussed with .
Chief Complaint
-: UTI
Subjective / Review of Systems
No diarrhea, now constipated.
Vital Signs / Physical Exam
Vital Signs
Vital Signs
Temp Pulse Resp BP Pulse Ox
97.7 F 83 16 128/56 99
07/05/25 08:38 07/05/25 08:55 07/05/25 08:38 07/05/25 08:55 07/05/25 08:38
Physical Exam
Constitutional: No Acute Distress and Comfortable
Cardiovascular: Regular Rate and S1/S2
Pulmonary: Clear
Gastrointestinal: Soft, Non Tender and Non Distended
Genito-Urinary: Negative CVA Tenderness
Extremities: Negative Edema
Neurological: Awake and Alert
Objective Data
Lab Data
Lab Results
07/04/25 05:35
07/04/25 05:35
Estimated Creat Clear 97 ml/min 07/04/25 05:35
Lactic Acid 1.1 mmol/L (0.7-2.0) 06/30/25 00:09
Total Bilirubin 0.5 mg/dl (0.2-1.3) 06/29/25 22:25
AST 11 U/L (17-59) L 06/29/25 22:25
ALT < 10 U/L (0-50) 06/29/25 22:25
Alkaline Phosphatase 86 U/L (38-126) 06/29/25 22:25
Most recent labs reviewed.
Micro Results:
07/01/25 09:30 Salmonella/Shigella Culture - Final
Feces/Stool No Salmonella, Shigella, Aeromonas or Plesiomonas species
isolated.
Campylobacter Culture - Final
No Campylobacter species isolated.
Shiga Toxin Test - Final
No E. coli Shiga Toxin 1 or 2 detected.
06/29/25 22:48 Urine Culture - Final
Urine Pseudomonas aeruginosa
SPEC #: [id number] DANAE: 06/29/25 STATUS: COMP REQ #: [id number]
RECD: 06/29/25 [facility] DR: Arlet Becerril DO
SOURCE: URINE ENTR: 06/29/25 [facility] DR: Dept Physician Emergency
SPDESC: Miguel Aguilar MD
ORDERED: Urine Culture
QUERIES: Date Specimen was Collected 06/29/25
Time Specimen was Collected 2223
Procedure Result Verified
Urine Culture Final 07/02/25-850
CC: 80,000 CFU/ML Pseudomonas aeruginosa
Organism 1 Pseudomonas aeruginosa
1. Pseudomonas aeruginosa
M.I.C. RX
--------- ---
Aztreonam 8 S
Cefepime 4 S
Ceftazidime 4 S
Ciprofloxacin <=0.25 S
Meropenem <=1 S
Piperacillin/Tazobactam <=8 S
Tobramycin <=2 S
--- NOTE | 2025-07-05 11:40 | W.PN.HOSP.TC ---
Today's Communication/Plan
-
cont Abx
Laxatives
Assessment / Plan
Assessment / Plan
79yo M with PMHx of Parkinsons, orthostatic hypotension, OP, glaucoma, HLD, urinary retention previously with Rios removed 2 weeks days ago, HoLEP on 05/11/25 came with urinary frequency, b/l LE weakness and confusion. found recurrent UTI with
Pseudomonas.
A/P:
#Weakness, acute metabolic encephalopathy, urinary frequency 2/2 UTI with pseudomonas
#Parkinsons dementia with episodes of delirium
#Iatrogenic acute toxic metabolic encephalopathy, cannot r/o 2/[address] in Mar 2025 [facility] [place] nephrolithiasis
Patient without urinary retetnion - cont to follow
Cefepime switched to Ceftazidime as per ID on 07/04/25 - plan to complete course on 07/07/25 (7 days total is sufficient). Reasonable to do follow up Ucx. Family unable to administer at home. Arrangement of STR most likely will take some time,
potentially leaving patient with 1-2 days of IV Abx only, so cannot justify risk/benefit of outpatient treatment and midline placement at this time
Mentation and LE strength improving
Delirium 2/2 Parkinson and sundowning presented nightly on previous admission
with prolonged QTc - not candidate for antipsychotics
Concern for rebound delirium with BZD
advised frequent reorientations
#Diarrhea
2/2 Abx
C.diff cancelled since stool formed. Stool Cx neg. Diarrhea resolved and patient constipated since 07/01/25 - Laxatives PRN
#Prolonged QTc
avoid QT prolonging meds
#Traumatic old displaced L 7-8-9th ribs Fx
#traumatic old Non-displaced L 5-6th rib Fx
#Old traumatic Fx right lateral 9th, 10th, and 11th ribs
pain mgmt as needed
#Frequent falls with chronic ambulatory deficiency due to balance problems and orthostatic hypotension
As per family: midodrine PRN for SBP<150 mmHgb Rx by PCP
PT/OT
#Chronic constipation
#Anxiety d/o
#HLD
#Glaucoma
cont home meds
#Hyponatremia
2/2 volume overload
resolved with diuretics
#Reactive leukopenia
follow CBC
#JERRY
iron
#LE edema
#Heart murmur
#New diagnosis of HFrEF, possible ischemic CM with exacerbation
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
Echo EF 30-35%, mild-moderate TR
Cardio consult: known to patient and already followed by outpatient physician
Diuretics statred. BMP in 1 week. Not candidate for SGLT2 inh with recurrent UTI
#Macrocytosis
resolved
DVT ppx hep
DNR/DNI - as discussed in detils ls with patient with the presence of and daughter
I have spent at least 51min reviewing chart, test results, communication with family and providing direct patient care
Anticipated Discharge: > 48 hours
Subjective/Interval History
-
Date of Service: July 05, 2025
Objective Data
-
Vital Signs:
Vital Signs
Temp Pulse Resp BP Pulse Ox
97.7 F 83 16 128/56 99
07/05/25 08:38 07/05/25 08:55 07/05/25 08:38 07/05/25 08:55 07/05/25 08:38
I&O
07/04/25 07/05/25 07/06/25
06:59 06:59 06:59
Intake Total 1620 / 1620 1090 / 1090
Output Total 520 / 520 200 / 200
Balance 1100 / 1100 890 / 890
Review of Systems
-
History Source: Patient
All other systems: Reviewed and negative
Physical Exam
-
General: No Apparent Distress and Comfortable
HEENT: Normocephalic
Cardiac: Regular Rhythm
GI: Soft, Nontender and Nondistended
Skin: Warm
Neuro: Awake, Alert and Oriented
Psych: Calm and Apparent Dementia
[2025-07-05] MEDS: FERRLECIT 110 MG IV (14:46)
[2025-07-05 15:00] VITALS: BP 125/60
[2025-07-05 16:11] VITALS: BP 134/66; PULSE 88; O2SAT 97
[2025-07-05] MEDS: XALATAN OPHTHALMIC SOLUTION 1 DROP BOTH EYES (21:56)
[2025-07-05] MEDS: LIPITOR 10 MG PO (21:56)
[2025-07-05] MEDS: SEROQUEL 25 MG PO (21:56)
[2025-07-05 23:35] VITALS: BP 127/62
[2025-07-06] MEDS: TYLENOL 650 MG PO (00:51)
[2025-07-06 04:11] VITALS: BMI 23.2
[2025-07-06] MEDS: FORTAZ 2000 MG IV ×3 (05:04→21:19)
[2025-07-06] MEDS: STERILE WATER FOR INJECTION 10 ML IV ×3 (05:05→21:18)
[2025-07-06 07:00] VITALS: BP 138/71
[2025-07-06] MEDS: ALDACTONE 12.5 MG PO (08:06)
[2025-07-06] MEDS: SINEMET 25-100 2 TABLET PO ×3 (08:06→21:18)
[2025-07-06] MEDS: TEGRETOL XR (EXTENDED RELEASE) 400 MG PO ×2 (08:07→19:45)
[2025-07-06] MEDS: CYMBALTA DELAYED RELEASE 60 MG PO (08:07)
[2025-07-06] MEDS: COZAAR 25 MG PO (08:07)
[2025-07-06] MEDS: ASPIR LOW (ENTERIC COATED) 81 MG PO (08:07)
[2025-07-06] MEDS: HEPARIN 5000 UNITS SC ×2 (08:07→19:45)
[2025-07-06] MEDS: VISBIOME 2 CAP PO (08:07)
[2025-07-06] MEDS: ALPHAGAN 0.2% EYE DROPS 1 DROP BOTH EYES ×3 (08:08→21:13)
[2025-07-06] MEDS: DESENEX/MITRAZOL/ZEASORB 1 APPLIC TOPICAL ×2 (08:10→19:45)
--- NOTE | 2025-07-06 10:38 | W.PN.HOSP.TC ---
Today's Communication/Plan
-
COnt Abx
will cosider UA
Assessment / Plan
Assessment / Plan
79yo M with PMHx of Parkinsons, orthostatic hypotension, OP, glaucoma, HLD, urinary retention previously with Rios removed 2 weeks days ago, HoLEP on 05/11/25 came with urinary frequency, b/l LE weakness and confusion. found recurrent UTI with
Pseudomonas.
A/P:
#Weakness, acute metabolic encephalopathy, urinary frequency 2/2 UTI with pseudomonas
#Parkinsons dementia with episodes of delirium
#Iatrogenic acute toxic metabolic encephalopathy, cannot r/o 2/[address] in Mar 2025 [facility] nephrolithiasis
Patient without urinary retetnion - cont to follow
Cefepime switched to Ceftazidime as per ID on 07/04/25 - plan to complete course on 07/07/25 (7 days total is sufficient). Reasonable to do follow up Ucx. Family unable to administer at home. Arrangement of STR most likely will take some time,
potentially leaving patient with 1-2 days of IV Abx only, so cannot justify risk/benefit of outpatient treatment and midline placement at this time
Mentation and LE strength improving
Delirium 2/2 Parkinson and sundowning presented nightly on previous admission
with prolonged QTc - not candidate for antipsychotics
Concern for rebound delirium with BZD
advised frequent reorientations
#Diarrhea
2/2 Abx
C.diff cancelled since stool formed. Stool Cx neg. Diarrhea resolved and patient constipated since 07/01/25 - Laxatives PRN
#Prolonged QTc
avoid QT prolonging meds
#Traumatic old displaced L 7-8-9th ribs Fx
#traumatic old Non-displaced L 5-6th rib Fx
#Old traumatic Fx right lateral 9th, 10th, and 11th ribs
pain mgmt as needed
#Frequent falls with chronic ambulatory deficiency due to balance problems and orthostatic hypotension
As per family: midodrine PRN for SBP<150 mmHgb Rx by PCP
PT/OT
#Chronic constipation
#Anxiety d/o
#HLD
#Glaucoma
cont home meds
#Hyponatremia
2/2 volume overload
resolved with diuretics
#Reactive leukopenia
follow CBC
#JERRY
iron
#LE edema
#Heart murmur
#New diagnosis of HFrEF, possible ischemic CM with exacerbation
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
Echo EF 30-35%, mild-moderate TR
Cardio consult: known to patient and already followed by outpatient physician
Diuretics statred. BMP in 1 week. Not candidate for SGLT2 inh with recurrent UTI
#Macrocytosis
resolved
DVT ppx hep
DNR/DNI - as discussed in detils ls with patient with the presence of and daughter
I have spent at least 51min reviewing chart, test results, communication with family and providing direct patient care
Anticipated Discharge: Within 24 hours
Subjective/Interval History
-
Date of Service: July 06, 2025
Objective Data
-
Vital Signs:
Vital Signs
Temp Pulse Resp BP Pulse Ox
97.2 F 84 16 138/71 97
07/06/25 07:00 07/06/25 08:06 07/06/25 07:00 07/06/25 08:06 07/06/25 08:56
I&O
07/05/25 07/06/25 07/07/25
06:59 06:59 06:59
Intake Total 1090 / 1090 1320 / 1320
Output Total 200 / 200 450 / 450
Balance 890 / 890 870 / 870
Review of Systems
-
Unable to obtain full review of systems at this time due to: Dementia
History Source: Patient
All other systems: Reviewed and negative
Physical Exam
-
General: No Apparent Distress
HEENT: Normocephalic
Respiratory: Clear to Auscultation
Cardiac: Regular Rhythm
Neuro: Awake, Alert, Oriented and AO x 3
Psych: Calm and Apparent Dementia
--- NOTE | 2025-07-06 11:24 | W.PN.ID1 ---
Addendum entered and electronically signed by Clarisse Hester MD 07/06/25 14:52:
Patient's spoke to his Urologist who recommended low dose abx for suppression. The last 3 Ucx grew Pseudomonas. I informed her due to prolonged QTc, there is no safe oral abx against the Pseudomonas. Cipro/levofloxacin is the only class of
oral abx available against Pseudomonas. Cardiology advised against use of cipro/levofloxacin due to risk of prolonging the QTc further leading to torsades. He has been taking methenamine and will start cranberry pills as per Urology. I recommend
fluid intake to flush the bladder.
Original Note:
Date of Service
Date of Service: July 06, 2025
Today's Communication
Continue ceftazidime [id number] to complete 7d total course of abx through 07/07/25 6AM dose, then dc home.
ID will sign off.
Assessment / Plan
# Pseudomonas UTI
# BPH s/p recent HoLEP 05/11/25
# Encephalopathy - Possibly due to cefepime vs dementia
# Prolonged QTc >510
# Parkinson's
# Dementia
-cefepime dc'd on day 4 - due to confusion
- Unable to use FQ due to prolonged QTc
- Continue ceftazidime [id number] to complete 7d total course of abx through 07/07/25 6AM dose, then dc home.
ID will sign off.
Chief Complaint
-: UTI
Subjective / Review of Systems
No new complaints.
Vital Signs / Physical Exam
Vital Signs
Vital Signs
Temp Pulse Resp BP Pulse Ox
97.2 F 84 16 138/71 97
07/06/25 07:00 07/06/25 08:06 07/06/25 07:00 07/06/25 08:06 07/06/25 08:56
Physical Exam
Constitutional: No Acute Distress and Comfortable
Cardiovascular: Regular Rate and S1/S2
Pulmonary: Clear
Gastrointestinal: Soft, Non Tender and Non Distended
Genito-Urinary: Negative CVA Tenderness
Extremities: Negative Edema
Neurological: Awake and Alert
Objective Data
Lab Data
Lab Results
07/04/25 05:35
07/04/25 05:35
Estimated Creat Clear 97 ml/min 07/04/25 05:35
Lactic Acid 1.1 mmol/L (0.7-2.0) 06/30/25 00:09
Total Bilirubin 0.5 mg/dl (0.2-1.3) 06/29/25 22:25
AST 11 U/L (17-59) L 06/29/25 22:25
ALT < 10 U/L (0-50) 06/29/25 22:25
Alkaline Phosphatase 86 U/L (38-126) 06/29/25 22:25
Most recent labs reviewed.
Micro Results:
07/01/25 09:30 Salmonella/Shigella Culture - Final
Feces/Stool No Salmonella, Shigella, Aeromonas or Plesiomonas species
isolated.
Campylobacter Culture - Final
No Campylobacter species isolated.
Shiga Toxin Test - Final
No E. coli Shiga Toxin 1 or 2 detected.
06/29/25 22:48 Urine Culture - Final
Urine Pseudomonas aeruginosa
SPEC #: [id number] DANAE: 06/29/25 STATUS: COMP REQ #: [id number]
RECD: 06/29/[address]: Arlet Becerril DO
SOURCE: URINE ENTR: 06/29/[address] [facility] [address]: Dept Physician Emergency
SPDESC: Jeff CHAMBERLAIN,Miguel Gupta
ORDERED: Urine Culture
QUERIES: Date Specimen was Collected 06/29/25
Time Specimen was Collected 2223
Procedure Result Verified
Urine Culture Final 07/02/2508
CC: 80,000 CFU/ML Pseudomonas aeruginosa
Organism 1 Pseudomonas aeruginosa
1. Pseudomonas aeruginosa
M.I.C. RX
--------- ---
Aztreonam 8 S
Cefepime 4 S
Ceftazidime 4 S
Ciprofloxacin <=0.25 S
Meropenem <=1 S
Piperacillin/Tazobactam <=8 S
Tobramycin <=2 S
--- NOTE | 2025-07-06 11:26 | CM ---
CM reviewed pt with attending- ADC tomorrow after morning abx
Call with spouse with update- plan fr home with [facility]
She and and family will provide transport home
Update to [facility] via [facility] Port- VN order requested and on chart
Bedside update to pt- IMM verbally reviewed, copy provided
Discharge Disposition- ADC tomorrow to home with [facility] via family transport
[facility] Fax- [phone]
[2025-07-06 15:00] VITALS: BP 129/69
[2025-07-06 15:08] LABS: Urine Character Clear (Clear)
[2025-07-06 16:56] VITALS: BP 134/72; PULSE 90; O2SAT 99
[2025-07-06] MEDS: XALATAN OPHTHALMIC SOLUTION 1 DROP BOTH EYES (21:13)
[2025-07-06] MEDS: SEROQUEL 25 MG PO (21:18)
[2025-07-06] MEDS: LIPITOR 10 MG PO (21:18)
[2025-07-06 23:14] VITALS: BP 127/61
[2025-07-07] MEDS: FORTAZ 2000 MG IV (05:06)
[2025-07-07] MEDS: STERILE WATER FOR INJECTION 10 ML IV (05:06)
[2025-07-07 07:40] VITALS: BP 133/69
[2025-07-07] MEDS: VISBIOME 2 CAP PO (08:32)
[2025-07-07] MEDS: COZAAR 25 MG PO (08:33)
[2025-07-07] MEDS: TEGRETOL XR (EXTENDED RELEASE) 400 MG PO (08:33)
[2025-07-07] MEDS: CYMBALTA DELAYED RELEASE 60 MG PO (08:33)
[2025-07-07] MEDS: SINEMET 25-100 2 TABLET PO (08:33)
[2025-07-07] MEDS: ALDACTONE 12.5 MG PO (08:34)
[2025-07-07] MEDS: ASPIR LOW (ENTERIC COATED) 81 MG PO (08:34)
[2025-07-07] MEDS: HEPARIN 5000 UNITS SC (08:34)
[2025-07-07] MEDS: DESENEX/MITRAZOL/ZEASORB 1 APPLIC TOPICAL (08:36)
[2025-07-07] MEDS: ALPHAGAN 0.2% EYE DROPS 1 DROP BOTH EYES (08:36)
--- NOTE | 2025-07-07 10:52 | W.PN.HOSP.TC ---
Today's Communication/Plan
-
dc
Assessment / Plan
Assessment / Plan
79yo M with PMHx of Parkinsons, orthostatic hypotension, OP, glaucoma, HLD, urinary retention previously with Rios removed 2 weeks days ago, HoLEP on 05/11/25 came with urinary frequency, b/l LE weakness and confusion. found recurrent UTI with
Pseudomonas. Echo done due to LEedema showed new HFrEF, cardiology evaluated - started Aldactone, coundnot start SGLT-2 inh due to recurrent UTI. Recommended GDMT with established bit welder upon d/c. BMP in 1-2 weeks. Completed 7 days
of Abx as advised by ID - could not switch to PO due to pseudomonas and Hx of QTc prolongation, so cardio advised against this Abx. Follow up UA neg for infection, patient much improved and PT/OT recommended home health. Medically stable for d/c
A/P:
#Weakness, acute metabolic encephalopathy, urinary frequency 2/2 UTI with pseudomonas
#Parkinsons dementia with episodes of delirium
#Iatrogenic acute toxic metabolic encephalopathy, cannot r/o 2/[address] in Mar 2025 [facility] nephrolithiasis
Patient without urinary retetnion - cont to follow
Cefepime switched to Ceftazidime as per ID on 07/04/25 - plan to complete course on 07/07/25 (7 days total is sufficient). Reasonable to do follow up Ucx. Family unable to administer at home. Arrangement of STR most likely will take some time,
potentially leaving patient with 1-2 days of IV Abx only, so cannot justify risk/benefit of outpatient treatment and midline placement at this time
Mentation and LE strength improving
Delirium 2/2 Parkinson and sundowning presented nightly on previous admission
with prolonged QTc - not candidate for antipsychotics
Concern for rebound delirium with BZD
advised frequent reorientations
#Diarrhea
2/2 Abx
C.diff cancelled since stool formed. Stool Cx neg. Diarrhea resolved and patient constipated since 11/21/25 - Laxatives PRN
#Prolonged QTc
avoid QT prolonging meds
#Traumatic old displaced L 7-8-9th ribs Fx
#traumatic old Non-displaced L 5-6th rib Fx
#Old traumatic Fx right lateral 9th, 10th, and 11th ribs
pain mgmt as needed
#Frequent falls with chronic ambulatory deficiency due to balance problems and orthostatic hypotension
As per family: midodrine PRN for SBP<150 mmHgb Rx by PCP
PT/OT
#Chronic constipation
#Anxiety d/o
#HLD
#Glaucoma
cont home meds
#Hyponatremia
2/2 volume overload
resolved with diuretics
#Reactive leukopenia
follow CBC
#JERRY
iron
#LE edema
#Heart murmur
#New diagnosis of HFrEF, possible ischemic CM with exacerbation
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
Echo EF 30-35%, mild-moderate TR
Cardio consult: known to patient and already followed by outpatient physician
Diuretics started. BMP in 1 week. Not candidate for SGLT2 inh with recurrent UTI
#Macrocytosis
resolved
DVT ppx hep
DNR/DNI - as discussed in details ls with patient with the presence of and daughter
I have spent at least 36min reviewing chart, test results, communication with family and providing direct patient care
Anticipated Discharge: Today
Subjective/Interval History
-
Date of Service: July 07, 2025
Objective Data
-
Vital Signs:
Vital Signs
Temp Pulse Resp BP Pulse Ox
97.6 F 76 16 127/61 98
07/07/25 07:40 07/07/25 08:33 07/07/25 07:40 07/07/25 08:33 07/07/25 08:29
I&O
11/26/25 11/27/25 11/28/25
06:59 06:59 06:59
Intake Total 1320 / 1320 480 / 480
Output Total 450 / 450 650 / 650
Balance 870 / 870 -170 / -170
Review of Systems
-
History Source: Patient
All other systems: Reviewed and negative
Physical Exam
-
General: No Apparent Distress
HEENT: Normocephalic
Cardiac: Regular Rhythm
GI: Soft, Nontender and Nondistended
Neuro: Awake, Alert, Oriented and AO x 3
Psych: Calm
--- NOTE | 2025-07-07 11:05 | W.DCSUMMARY ---
Discharge Summary
Discharge Data
Date of Admission: 06/30/25
Date of Discharge: 07/07/25
-
Pending Results: No
Hospital Course
79yo M with PMHx of Parkinsons, orthostatic hypotension, OP, glaucoma, HLD, urinary retention previously with Rios removed 2 weeks days ago, HoLEP on 05/11/25 came with urinary frequency, b/l LE weakness and confusion. found recurrent UTI with
Pseudomonas. Echo done due to LEedema showed new HFrEF, cardiology evaluated - started Aldactone, coundnot start SGLT-2 inh due to recurrent UTI. Recommended GDMT with established dining room coordinator upon d/c. BMP in 1-2 weeks. Completed 7 days
of Abx as advised by ID - could not switch to PO due to pseudomonas and Hx of QTc prolongation, so cardio advised against this Abx. Follow up UA neg for infection, patient much improved and PT/OT recommended home health. Medically stable for d/c
I have spent at least 36min reviewing chart, test results, communication with family and providing direct patient care
Patient was managed for:
#Weakness, acute metabolic encephalopathy, urinary frequency 2/2 UTI with pseudomonas
#Parkinsons dementia with episodes of delirium
#Iatrogenic acute toxic metabolic encephalopathy, cannot r/o 2/2 cefepime
#Diarrhea
#Prolonged QTc
#Traumatic old displaced L 7-8-9th ribs Fx
#traumatic old Non-displaced L 5-6th rib Fx
#Old traumatic Fx right lateral 9th, 10th, and 11th ribs
#Frequent falls with chronic ambulatory deficiency due to balance problems and orthostatic hypotension
#Chronic constipation
#Anxiety d/o
#HLD
#Glaucoma
#Hyponatremia
#Reactive leukopenia
#JERRY
#LE edema
#Heart murmur
#New diagnosis of HFrEF, possible ischemic CM with exacerbation
#Macrocytosis
Discharge Plan
-
Patient Disposition: Home with Home Care
Discharge Diagnosis/Procedures: UTI
Diet: Low Residue
Referrals:
Bari Smallwood MD [Non-Admitting Privileges] - in one to two weeks
Referral Note: Heart failure f/u, BMP blood work
Miguel Aguilar MD [Family Provider, Internal Medicine]
Prescriptions:
New
Probiotic-Cranberry 2.5 billion cell-50 mg-50mg tablet,chewable
1 tab PO DAILY Qty: 30 0RF
aspirin 81 mg Tablet,Delayed Release (Dr/Ec)
81 mg PO DAILY Qty: 30 0RF
atorvastatin 10 mg Tablet
10 mg PO HS Qty: 30 0RF
spironolactone 25 mg Tablet
12.5 mg PO DAILY Qty: 30 0RF
Continued
alendronate 70 mg Tablet
70 mg PO WEEKLY
travoprost 0.004 % Drops
1 drp BOTH EYES HS
acetaminophen [Tylenol Extra Strength] 500 mg Tablet
500 mg PO BID
losartan 25 mg Tablet
25 mg PO DAILY
carbidopa-levodopa 25-100 mg Tablet
2 tab PO TID
brimonidine 0.15 % Drops
1 drp BOTH EYES TID
carbamazepine [Tegretol XR] 200 mg Tablet Extended Release 12 Hr
400 mg PO BID
carbidopa 25 mg Tablet
25 mg PO Q8H PRN (Reason: nausea)
Rx Instructions:
25mg TID daily at meals
quetiapine 25 mg Tablet
25 mg PO HS
sennosides-docusate sodium [Senna with Docusate Sodium] 8.6-50 mg Tablet
1 tab-cap PO HS PRN (Reason: constipation)
methenamine hippurate 1 gram Tablet
1 g PO BID
duloxetine 60 mg Capsule,Delayed Release(Dr/Ec)
60 mg PO DAILY
Discontinued
simvastatin 20 mg Tablet
20 mg PO HS
metronidazole 500 mg Tablet
500 mg PO Q8H
Discharge Orders:
Discharge Patient (As Directed); Ordered 07/07/25
Ordered By: Ovidio Lawson
Discharge Date and Time
Print Language: LITHUANIAN
[2025-07-07 12:42] VITALS: BP 130/69
--- NOTE | 2025-07-07 12:55 | CM ---
MD entered order for discharge.
Pt is dc to home with and [facility] aide.
[facility] referral in care port.
IMM reviewed signed on chart.
PLAn Home with [facility] fax [phone]
== END 2025-07-07 12:45 | disposition home health service (06) | DRG 871 ==
LOC: 2 NORTH 02:09
PROVIDERS: Emergency Medicine; Hospitalist; Physician Assistant; ADMITTING PHYSICIAN Hospitalist; ATTENDING PHYSICIAN Internal Medicine; CONSULT PHYSICIAN Internal Medicine Cardiovascular Disease; CONSULT PHYSICIAN Internal Medicine Infectious Disease; EMERGENCY PHYSICIAN Emergency Medicine; FAMILY PHYSICIAN Internal Medicine
DX: A41.9 Sepsis, unspecified organism (principal); G92.8 Other toxic encephalopathy; I50.21 Acute systolic (congestive) heart failure; N39.0 Urinary tract infection, site not specified; E87.1 Hypo-osmolality and hyponatremia; N32.0 Bladder-neck obstruction; G20.A1 Parkinson's disease without dyskinesia, without mention of fluctuations; Z66 Do not resuscitate; I11.0 Hypertensive heart disease with heart failure; I95.1 Orthostatic hypotension; Z79.899 Other long term (current) drug therapy; Z87.440 Personal history of urinary (tract) infections; R65.20 Severe sepsis without septic shock
CPT/HCPCS: 80048; 80053; 81003; 81015; 82728; 83540; 83550; 83605; 83880; 85025; 85027; 87045; 87046; 87077; 87086; 87186; 87427; 93005; 93306; 96374; 97116; 97163; 97167; 97530; 97535; 99285; J2916